=== PATIENT | female | born 1990 | race African-American/Black ===

== ENCOUNTER → 2018-05-27 | Outpatient (CLI) | payer OTHER ==
[2018-05-27 12:44] LABS: HCT 33.6 % (34.0-46.0); HGB 11.5 gm/dL (11.4-16.0); MCH 32.6 pg (25.0-35.0); MCHC 34.1 g/dL (31.0-37.0); MCV 95.7 fL (80.0-100.0); Mean Platelet Volume 6.9; Platelet Count 376 k/uL (150-450); RBC 3.51 m/uL (3.80-5.40); RDW 13.7 % (11.5-15.5); WBC 6.6 k/uL (3.8-10.6)
== END | disposition home or self-care (01) ==
LOC: LABWHC1 11:53
PROVIDERS: ATTEND Obstetrics & Gynecology
DX: F50.89 Other specified eating disorder (principal)
CPT/HCPCS: 36415; 85027

== ENCOUNTER 2018-05-31 14:03 | Emergency (ER) | payer OTHER ==
[2018-05-31 14:26] VITALS: TEMP 99
[2018-05-31] MEDS ORDERED: SODIUM CHLORIDE 0.9% 500 ML IV STA (15:04)
--- NOTE | 2018-05-31 15:23 | ED ---
General Adult HPI - General Chief complaint: Dizziness Stated complaint: SOB, Lightheaded Time Seen by Provider: 05/31/18 14:54 Source: patient Mode of arrival: ambulatory Limitations: no limitations - History of Present Illness Initial comments: Ramone is a female currently approximately 6 months who presents the ED today for evaluation of chest pain, palpitations, shortness of breath and lightheadedness. Patient has a complicated medical history significant for DVTs and PEs in the past, she has been prescribed anticoagulation and during this was advised that she needs to be on Lovenox injections. Patient reports that she missed about 2 weeks of her injections but because she started feeling short of breath yesterday did take an injection. Patient reports that she has been feeling mildly short of breath, she attributed this to having asthma and the high humidity. However earlier today she was at home and she began to feel that her heart was pounding very hard, she could not catch her breath at this time and began to feel like she was going to pass out. She states that she sat and rested and the symptoms went away. She then had to attend a court hearing regarding her current custody situation. She reports that while at the courthouse she again began to feel that her heart was racing, she describes this feeling that her heart was pounding in her chest and she could not catch her breath. She reports that her vision darkened and she thought she would faint. Patient does have a history of fainting in the past. When she felt the sensation she states that she moved to a chair and sat down. She did not faint. Patient then became concerned due to her symptoms and her noncompliance with her medications that she needed to come to the hospital for evaluation. - Related Data Home Medications Medication Instructions Recorded Confirmed Albuterol Nebulized [Ventolin 2.5 mg INHALATION RT-BID PRN 08/31/16 05/31/18 Nebulized] Enoxaparin [Lovenox] 40 mg SQ HS 05/31/18 05/31/18 Pnv No.95/Ferrous Fum/Folic AC 1 tab PO DAILY 05/31/18 05/31/18 [ Multivitamin Tablet] Allergies Allergy/AdvReac Type Severity Reaction Status Date / Time Penicillins Allergy Unknown Verified 05/31/18 14:48 Childhood Review of Systems ROS Statement: Those systems with pertinent positive or pertinent negative responses have been documented in the HPI. ROS Other: All systems not noted in ROS Statement are negative. Constitutional: Denies: fever, chills Eyes: Reports: vision change (darkening of vision when she felt she would faint) ENT: Denies: throat pain, hearing loss Respiratory: Reports: dyspnea. Denies: cough Cardiovascular: Reports: chest pain, palpitations. Denies: dyspnea on exertion Endocrine: Reports: fatigue Gastrointestinal: Denies: abdominal pain, nausea, vomiting Genitourinary: Denies: urgency, dysuria Musculoskeletal: Denies: back pain Skin: Denies: rash, lesions Neurological: Denies: headache, weakness, numbness, paresthesias Psychiatric: Reports: anxiety Hematological/Lymphatic: Denies: easy bleeding, easy bruising Past Medical History Past Medical History: Asthma, GERD/Reflux, Mitral Valve Prolapse (MVP) Additional Past Medical History / Comment(s): BLADDER INFECTIONS, PANCREATITIS, lung nodules and blood clot in lungs History of Any Multi-Drug Resistant Organisms: None Reported Past Surgical History: Appendectomy, Cholecystectomy, Hernia Repair Additional Past Surgical History / Comment(s): RT CALF MUCSLE REPAIRED AFTER LACERATION INURY Past Anesthesia/Blood Transfusion Reactions: No Reported Reaction Past Psychological History: Anxiety Smoking Status: Former smoker Past Alcohol Use History: Occasional Past Drug Use History: None Reported - Past Family History Father Additional Family Medical History / Comment(s): UNK Mother Family Medical History: Thyroid Disorder Additional Family Medical History / Comment(s): MURMUR, sarcoidosis General Exam Limitations: no limitations General appearance: alert, in no apparent distress Head exam: Present: atraumatic, normocephalic Eye exam: Present: normal appearance, PERRL ENT exam: Present: normal exam, mucous membranes moist Neck exam: Present: full ROM Respiratory exam: Present: normal lung sounds bilaterally. Absent: respiratory distress, wheezes Cardiovascular Exam: Present: regular rate, normal rhythm GI/Abdominal exam: Present: other (Gravid uterus) Rectal exam: Present: deferred Extremities exam: Present: normal inspection, full ROM, normal capillary refill. Absent: pedal edema, calf tenderness Back exam: Present: normal inspection Neurological exam: Present: alert, oriented X3 Psychiatric exam: Present: normal affect, normal mood Skin exam: Present: warm, dry Course Vital Signs 05/31/18 05/31/18 05/31/18 14:22 16:49 18:03 Temperature 99.0 F Pulse Rate 87 60 70 Respiratory 16 18 16 Rate Blood Pressure 106/72 114/66 109/59 O2 Sat by Pulse 98 98 100 Oximetry - Reevaluation(s) Reevaluation #1: She was reevaluated, is resting comfortably. Patient has decided to have the CT for pulmonary embolism despite being . 05/31/18 15:53 Reevaluation #2: On CT findings, expresses relief that there is no evidence of central pulmonary embolism. Patient states that she will continue to use her Lovenox as prescribed. 05/31/18 17:45 EKG Findings - EKG Comments: EKG Findings:: EKG performed at 1550 - rate is 76, rhythm sinus, normal axis, there are normal intervals, [place] is 166, QRS is 82 QTc is 525, there is no acute ST elevations or depressions. There is no evidence of acute right heart strain. There is no evidence of sinus tachycardia, or [id number] indicitave of right heart strain. Medical Decision Making - Medical Decision Making The patient was seen and evaluated, history was obtained from the patient and her mother bedside Patient with a very complicated medical history including pulmonary embolism in the past, patient has been noncompliant with her Lovenox, she's had chest pain, palpitations, shortness of breath and near-syncope. Patient with concern that this may be anxiety related to her current social situation versus recurrent pulmonary embolism. An extensive conversation with the patient guarding the risks and benefits of CT scanning during , I advised her that a computed tomography scan will valuate for pulmonary embolism and identify the size and location. Advised that exposure to radiation in utero may increase risk of defects or development of certain cancers. Patient would like time to discuss options with her mother Labs & EKG ordered Patient consented to computed tomography scan Computed tomography scan reveals no evidence of acute pulmonary embolism. These results were discussed with the patient who expresses relief. I stressed to the patient the importance of her compliance with Lovenox and follow-up with high risk enough them. Patient expressed understanding. I advised patient I think her symptoms are likely multifactorial relating to anemia of , increase cardiac output, decreased pulmonary reserve, history of asthma, current weather conditions as well as her emotional state being very heightened due to social stressors. Patient agreed that this likely contributes and she expresses again relief that there is no PE and remorse for not being compliant with her medications. Patient ensures me that she will be compliant with her Lovenox for the remainder of her . Patient was advised to call 911 or return to the emergency department if she has any acute worsening of her symptoms. All questions pertaining to care were answered best my ability patient was discharged home - Lab Data Result diagrams: 05/31/18 15:54 05/31/18 15:54 Lab Results 05/31/18 05/31/18 05/31/18 Range/Units 15:54 15:54 15:54 WBC 6.2 (3.8-10.6) k/uL RBC 3.41 L (3.80-5.40) m/uL Hgb 10.7 L (11.4-16.0) gm/dL Hct 32.0 L (34.0-46.0) % MCV 93.7 (80.0-100.0) fL MCH 31.3 (25.0-35.0) pg MCHC 33.4 (31.0-37.0) g/dL RDW 13.7 (11.5-15.5) % Plt Count 337 (150-450) k/uL Neutrophils % 67 % Lymphocytes % 23 % Monocytes % 7 % Eosinophils % 1 % Basophils % 0 % Neutrophils # 4.1 (1.3-7.7) k/uL Lymphocytes # 1.5 (1.0-4.8) k/uL Monocytes # 0.4 (0-1.0) k/uL Eosinophils # 0.1 (0-0.7) k/uL Basophils # 0.0 (0-0.2) k/uL PT (9.0-12.0) sec INR (<1.2) APTT (22.0-30.0) sec Sodium 135 L (137-145) mmol/L Potassium 4.2 (3.5-5.1) mmol/L Chloride 112 H (98-107) mmol/L Carbon Dioxide 19 L (22-30) mmol/L Anion Gap 4 mmol/L BUN 4 L (7-17) mg/dL Creatinine 0.40 L (0.52-1.04) mg/dL Est GFR (CKD-EPI)AfAm >90 (>60 ml/min/1.73 sqM) Est GFR (CKD-EPI)NonAf >90 (>60 ml/min/1.73 sqM) Glucose 85 (74-99) mg/dL Calcium 8.6 (8.4-10.2) mg/dL Magnesium 2.0 (1.6-2.3) mg/dL Total Bilirubin 0.3 (0.2-1.3) mg/dL AST 25 (14-36) U/L ALT 27 (9-52) U/L Alkaline Phosphatase 77 (38-126) U/L Total Creatine Kinase 35 (30-135) U/L CK-MB (CK-2) <0.2 (0.0-2.4) ng/mL CK-MB (CK-2) Rel Index Troponin I <0.012 (0.000-0.034) ng/mL NT-Pro-B Natriuret Pep pg/mL Total Protein 6.3 (6.3-8.2) g/dL Albumin 3.3 L (3.5-5.0) g/dL 05/31/18 05/31/18 Range/Units 15:54 15:54 WBC (3.8-10.6) k/uL RBC (3.80-5.40) m/uL Hgb (11.4-16.0) gm/dL Hct (34.0-46.0) % MCV (80.0-100.0) fL MCH (25.0-35.0) pg MCHC (31.0-37.0) g/dL RDW (11.5-15.5) % Plt Count (150-450) k/uL Neutrophils % % Lymphocytes % % Monocytes % % Eosinophils % % Basophils % % Neutrophils # (1.3-7.7) k/uL Lymphocytes # (1.0-4.8) k/uL Monocytes # (0-1.0) k/uL Eosinophils # (0-0.7) k/uL Basophils # (0-0.2) k/uL PT 9.6 (9.0-12.0) sec INR 1.0 (<1.2) APTT 23.0 (22.0-30.0) sec Sodium (137-145) mmol/L Potassium (3.5-5.1) mmol/L Chloride (98-107) mmol/L Carbon Dioxide (22-30) mmol/L Anion Gap mmol/L BUN (7-17) mg/dL Creatinine (0.52-1.04) mg/dL Est GFR (CKD-EPI)AfAm (>60 ml/min/1.73 sqM) Est GFR (CKD-EPI)NonAf (>60 ml/min/1.73 sqM) Glucose (74-99) mg/dL Calcium (8.4-10.2) mg/dL Magnesium (1.6-2.3) mg/dL Total Bilirubin (0.2-1.3) mg/dL AST (14-36) U/L ALT (9-52) U/L Alkaline Phosphatase (38-126) U/L Total Creatine Kinase (30-135) U/L CK-MB (CK-2) (0.0-2.4) ng/mL CK-MB (CK-2) Rel Index Troponin I (0.000-0.034) ng/mL NT-Pro-B Natriuret Pep 128 pg/mL Total Protein (6.3-8.2) g/dL Albumin (3.5-5.0) g/dL Disposition Clinical Impression: Heart palpitations, Anemia affecting Disposition: HOME SELF-CARE Condition: Good Instructions: Palpitations (ED), Near Syncope (ED) Is patient prescribed a controlled substance at d/c from ED?: No Referrals: None,Stated [Primary Care Provider] - 1-2 days Time of Disposition: 17:45
[2018-05-31 16:02] LABS: Basophils % (A) 0 %; Eosinophils # (A) 0.1 k/uL (0-0.7); Eosinophils % (A) 1 %; HGB 10.7 gm/dL (11.4-16.0); Lymphocytes # (A) 1.5 k/uL (1.0-4.8); Lymphocytes % (A) 23 %; MCH 31.3 pg (25.0-35.0); MCHC 33.4 g/dL (31.0-37.0); MCV 93.7 fL (80.0-100.0); Mean Platelet Volume 6.8; Monocytes # (A) 0.4 k/uL (0-1.0); Monocytes % (A) 7 %; Neutrophils # (A) 4.1 k/uL (1.3-7.7); Neutrophils % (A) 67 %; Platelet Count 337 k/uL (150-450); RBC 3.41 m/uL (3.80-5.40); RDW 13.7 % (11.5-15.5); WBC 6.2 k/uL (3.8-10.6)
[2018-05-31 16:10] LABS: Prothrombin Time 9.6 sec (9.0-12.0)
[2018-05-31 16:15] LABS: ALT 27 U/L (9-52); AST 25 U/L (14-36); Albumin 3.3 g/dL (3.5-5.0); Alkaline Phosphatase 77 U/L (38-126); Anion Gap 4 mmol/L; Blood Urea Nitrogen 4 mg/dL (7-17); Calcium 8.6 mg/dL (8.4-10.2); Carbon Dioxide 19 mmol/L (22-30); Chloride 112 mmol/L (98-107); Glucose 85 mg/dL (74-99); Sodium 135 mmol/L (137-145); Total Bilirubin 0.3 mg/dL (0.2-1.3); Total Protein 6.3 g/dL (6.3-8.2)
--- NOTE | 2018-05-31 16:37 | CT ---
EXAMINATION TYPE: CT chest angio for PE DATE OF EXAM: 05/31/2018 COMPARISON: 12/20/2015 HISTORY: Chest pain, shortness of breath and dizziness today. CT DLP: 238.5 mGycm. Automated Exposure Control for Dose Reduction was Utilized. CONTRAST: CTA scan of the thorax is performed with IV Contrast, patient injected with 70ml mL of Isovue 370, pu lmonary embolism protocol. MIP Images are created on CT scanner and reviewed. FINDINGS: LUNGS: The lungs are grossly clear, there is no concerning parenchymal mass or nodule identified. T here is no pleural effusion or pneumothorax seen. The tracheobronchial tree is patent. MEDIASTINUM: Increased density within the anterior superior mediastinum does not have a masslike conf iguration and typically relates to residual thymic tissue. Although there are numerous filling defects when correlated with the coronal images these correspond to horizontally oriented linear areas of decreased attenuation representing artifact. This may be fro m patient motion artifact or extensive respiratory artifact. No central pulmonary embolus is seen. Ch oscar in caliber of the main pulmonary artery from series 4 image 44 to image 47 is likely on the basi s of tachycardia. There are no greater than 1 cm hilar or mediastinal lymph nodes. No cardiomegaly or pericardial effusion is seen. OTHER: Surgical clips are seen at the gastroesophageal junction. IMPRESSION: 1. The exam is limited given extensive patient respiratory artifact, likely tachycardia, and possible patient motion artifact. No central pulmonary embolus is seen, however multiple filling defects with in the pulmonary artery correlate to artifact and coronal images in the subsegmental and segmental pu lmonary arteries. Repeat imaging would be advised prior to treatment if there is persistent high susp icion for pulmonary embolus. 2. Minimal bibasilar subsegmental dependent atelectasis.
[2018-05-31 16:41] LABS: Potassium 4.2 mmol/L (3.5-5.1)
[2018-05-31 16:53] LABS: Creatine Kinase 35 U/L (30-135)
[2018-05-31 17:04] LABS: Creatine Kinase MB <0.2 ng/mL (0.0-2.4); Troponin I <0.012 ng/mL (0.000-0.034)
[2018-05-31 18:04] VITALS: BP 109/59; PULSE 70; RESP 16
== END 2018-05-31 18:03 | disposition home or self-care (01) ==
LOC: EC 14:03
DX: O99.112 Other diseases of the blood and blood-forming organs and certain disorders involving the immune mechanism complicating pregnancy, second trimester (principal); D64.9 Anemia, unspecified; O99.89 Other specified diseases and conditions complicating pregnancy, childbirth and the puerperium; R00.2 Palpitations; Z91.14 Patient's other noncompliance with medication regimen; R07.9 Chest pain, unspecified; R06.02 Shortness of breath; O99.512 Diseases of the respiratory system complicating pregnancy, second trimester; J45.909 Unspecified asthma, uncomplicated; Z87.891 Personal history of nicotine dependence; Z79.01 Long term (current) use of anticoagulants; Z79.899 Other long term (current) drug therapy; Z88.0 Allergy status to penicillin; Z86.711 Personal history of pulmonary embolism; Z86.718 Personal history of other venous thrombosis and embolism; Z3A.26 26 weeks gestation of pregnancy
CPT/HCPCS: 99284; 96360; 36415; 93005; 83880; 80053; 82550; 82553; 83735; 84484; 85025; 85610; 85730; 71275; Q9967

== ENCOUNTER 2018-06-03 10:26 | Observation (INO) | payer OTHER ==
[2018-06-03 13:01] LABS: Basophils % (A) 0 %; Eosinophils % (A) 1 %; HCT 30.5 % (34.0-46.0); HGB 9.9 gm/dL (11.4-16.0); Lymphocytes # (A) 1.4 k/uL (1.0-4.8); Lymphocytes % (A) 26 %; MCH 30.7 pg (25.0-35.0); MCHC 32.4 g/dL (31.0-37.0); MCV 94.8 fL (80.0-100.0); Mean Platelet Volume 7.3; Monocytes # (A) 0.2 k/uL (0-1.0); Monocytes % (A) 4 %; Neutrophils # (A) 3.8 k/uL (1.3-7.7); Neutrophils % (A) 68 %; Platelet Count 345 k/uL (150-450); RBC 3.22 m/uL (3.80-5.40); RDW 13.7 % (11.5-15.5); WBC 5.6 k/uL (3.8-10.6)
[2018-06-03 13:05] LABS: Partial Thromboplastin Time 23.6 sec (22.0-30.0); Prothrombin Time 9.9 sec (9.0-12.0)
[2018-06-03 13:06] LABS: Amphetamine Screen,Urine Not Detected (NotDetected); Barbiturate Screen,Urine Not Detected (NotDetected); Benzodiazepines Screen,Urine Not Detected (NotDetected); Cocaine Screen,Urine Not Detected (NotDetected); Methadone Screen, Urine Not Detected (NotDetected); Opiate Screen,Urine Not Detected (NotDetected); Oxycodone Screen, Urine Not Detected (NotDetected); Phencyclidine Screen,Urine Not Detected (NotDetected); Tricyclic Antidepressant,Urine Not Detected (NotDetected); Urn Cannabinoid Scrn Not Detected (NotDetected)
[2018-06-03 13:29] LABS: ALT 21 U/L (9-52); AST 26 U/L (14-36); Albumin 3.1 g/dL (3.5-5.0); Alkaline Phosphatase 73 U/L (38-126); Anion Gap 8 mmol/L; Blood Urea Nitrogen 3 mg/dL (7-17); Calcium 8.7 mg/dL (8.4-10.2); Carbon Dioxide 20 mmol/L (22-30); Chloride 108 mmol/L (98-107); Glucose 128 mg/dL (74-99); Potassium 4.1 mmol/L (3.5-5.1); Sodium 136 mmol/L (137-145); Total Bilirubin 0.3 mg/dL (0.2-1.3)
[2018-06-03 13:38] LABS: Creatine Kinase MB <0.2 ng/mL (0.0-2.4); Troponin I <0.012 ng/mL (0.000-0.034)
[2018-06-03 13:41] VITALS: BP 121/60; PULSE 82; RESP 18; TEMP 98; BMI 26.9
--- NOTE | 2018-06-03 14:37 | P.CNPUL ---
History of Present Illness Consult date: 06/03/18 Reason for consult: dyspnea, chest pain, pulmonary embolism Chief complaint: Shortness of breath History of present illness: This is a 28 year old female who presented to the hospital with shortness of breath, chest tightness, dizziness, and near syncope. The patient states this began about 3 days ago when she was grocery shopping. She suddenly became short of breath, had chest discomfort, and almost passed out. She noted that her heart was racing and her vision went blurry. She states this has happened to her in the past, a few years ago, and she was diagnosed with a pulmonary embolism. She states she underwent extensive testing for clotting disorders and was placed on Coumadin. She moved to [place] at some point and moved back to [place] about 3 months ago. She states she was told by a physician to stop taking her Coumadin and about 6 months later what started on Lovenox when she found out she was . She states she did miss about 2 weeks of Lovenox. She had a CTA of the chest done on 05/31/2018. No central pulmonary embolism was seen however the patient did have multiple filling defects in the subsegmental levels. This is discussed with the radiologist extensively. He does note filling beyond the suspected defects. This is more consistent with a subacute chronic pulmonary embolism. She is currently 27 weeks . The patient also has a known history of asthma. She states she stopped using her breathing treatments at home. She recently started taking them again. The patient states she is undergoing evaluation for autoimmune diseases as well. The patient states she does not smoke, she quit about 9 years ago. Review of Systems All systems: negative Past Medical History Past Medical History: Asthma, GERD/Reflux, Mitral Valve Prolapse (MVP) Additional Past Medical History / Comment(s): BLADDER INFECTIONS, PANCREATITIS, lung nodules and blood clot in lungs, liver mass, heart murmur, bronchitis history, DVT, SOB 06/03/2018, IBS, CELIAC DISEASE History of Any Multi-Drug Resistant Organisms: None Reported Past Surgical History: Appendectomy, Cholecystectomy, Hernia Repair Additional Past Surgical History / Comment(s): RT CALF MUCSLE REPAIRED AFTER LACERATION INURY Past Anesthesia/Blood Transfusion Reactions: No Reported Reaction Past Psychological History: Anxiety Additional Psychological History / Comment(s): PT STATED HAS HAD ABD PAIN OFF AND ON X 4 WEEKS AND N/V INTERMITTENTLY X2 WEEKS. PT WAS RECENTLY TX FOR RESP INFECTION(STARTED MEDROL DOSEPAK 10-7-14 TOOK LAST DOES TODAY). Smoking Status: Former smoker Past Alcohol Use History: Occasional Additional Past Alcohol Use History / Comment(s): STARTED SMOKING AT AGE 20 SMOKED 2-3 HELIO PER DAY QUIT 2010 Past Drug Use History: None Reported - Past Family History Father Family Medical History: COPD Additional Family Medical History / Comment(s): UNK, GASTROINTESTINAL PROBLEMS Mother Family Medical History: Thyroid Disorder Additional Family Medical History / Comment(s): MURMUR, sarcoidosis, Medications and Allergies Home Medications Medication Instructions Recorded Confirmed Type Albuterol Nebulized [Ventolin 2.5 mg INHALATION RT-BID PRN 08/31/16 06/03/18 History Nebulized] Enoxaparin [Lovenox] 40 mg SQ HS 05/31/18 06/03/18 History Pnv No.95/Ferrous Fum/Folic AC 1 tab PO DAILY 05/31/18 06/03/18 History [ Multivitamin Tablet] Fluticasone/Salmeterol [Advair Hfa 2 puff INHALATION BID PRN 06/03/18 06/03/18 History 115-21 Mcg Inhaler] Allergies Allergy/AdvReac Type Severity Reaction Status Date / Time Penicillins Allergy Unknown Verified 05/31/18 14:48 Childhood Physical Exam Osteopathic Statement: *. No significant issues noted on an osteopathic structural exam other than those noted in the History and Physical/Consult. Vitals: Vital Signs Temp Pulse Resp BP Pulse Ox 06/03/18 10:30 98.0 F 82 18 121/60 100 Intake and Output 06/02/18 06/03/18 06/03/18 22:59 06:59 14:59 Other: Weight 75.75 kg Gen.: Patient is alert and oriented 3, no acute distress Cardiovascular: Regular rate and rhythm, S1/S2 Lungs: Clear to auscultation bilaterally no wheezes rales or rhonchi Abdomen: Gravid uterus, soft nontender Extremities: No edema Results - Laboratory Findings CBC and BMP: 06/03/18 12:37 06/03/18 12:37 PT/INR, D-dimer PT 9.9 sec (9.0-12.0) 06/03/18 12:37 INR 1.0 (<1.2) 06/03/18 12:37 Abnormal lab findings: Abnormal Labs 06/03/18 06/03/18 12:37 12:37 RBC 3.22 L Hgb 9.9 L Hct 30.5 L Sodium 136 L Chloride 108 H Carbon Dioxide 20 L BUN 3 L Creatinine 0.44 L Glucose 128 H Total Protein 6.0 L Albumin 3.1 L - Diagnostic Findings CT scan - chest: report reviewed, image reviewed Assessment and Plan Assessment: Acute dyspnea Subacute to chronic pulmonary embolisms History of DVT and PE Medical noncompliance 27 week intrauterine Asthma, unknown type Remote history of tobacco abuse Near-syncope History of mitral valve prolapse GERD O2 to maintain saturation > or = 90%, currently on RA Patient encouraged to continue Lovenox given history of PE/DVT and possible subacute PE on most recent CTA Patient may benefit from work up for possible chronic thromboembolic disease as outpatient Patient encouraged to be compliant with Lovenox as prescribed, she is aware that missing doses could be life-threatening for her and her baby Continued smoking cessation Advair and Albuterol for asthma Check lower extremity doppler ultrasound and echocardiogram for PH Follow up closely with OB, patient encouraged to establish with a PCP She will also need outpatient pulmonary follow up Would recommend long-term anticoagulation with NOAC post- Thank you for this consultation. We will continue to follow along.
--- NOTE | 2018-06-03 16:26 | P.HPOB ---
History of Present Illness H&P Date: 06/03/18 Chief Complaint: Acute shortness of breath at 27 weeks gestation Patient is a 28-year-old female at 27 weeks gestation who arrives to my office complaining of acute shortness of breath. Symptoms have been going on now for the last few days. She has a history of DVT and prior pulmonary embolism in the past and is seen maternal medicine. She is supposed to be taking Lovenox but has not taken in several days prior to her being seen in the emergency room this weekend. The resume to clear her by and large but she says symptomatically she is not feeling better. She'll be admitted for observation and pulmonary consultation and make sure that she is aware to continue to take her Lovenox as it was prescribed with her increased risk of DVT and PE. At this time her vital signs are stable and she is afebrile. All the questions are answered for her at this time and cardiac activity is noted. Past Medical History Past Medical History: Asthma, GERD/Reflux, Mitral Valve Prolapse (MVP) Additional Past Medical History / Comment(s): BLADDER INFECTIONS, PANCREATITIS, lung nodules and blood clot in lungs, liver mass, heart murmur, bronchitis history, DVT, SOB 06/03/2018, IBS, CELIAC DISEASE History of Any Multi-Drug Resistant Organisms: None Reported Past Surgical History: Appendectomy, Cholecystectomy, Hernia Repair Additional Past Surgical History / Comment(s): RT CALF MUCSLE REPAIRED AFTER LACERATION INURY Past Anesthesia/Blood Transfusion Reactions: No Reported Reaction Past Psychological History: Anxiety Additional Psychological History / Comment(s): PT STATED HAS HAD ABD PAIN OFF AND ON X 4 WEEKS AND N/V INTERMITTENTLY X2 WEEKS. PT WAS RECENTLY TX FOR RESP INFECTION(STARTED MEDROL DOSEPAK -7-14 TOOK LAST DOES TODAY). Smoking Status: Former smoker Past Alcohol Use History: Occasional Additional Past Alcohol Use History / Comment(s): STARTED SMOKING AT AGE 20 SMOKED 2-3 HELIO PER DAY QUIT 2010 Past Drug Use History: None Reported - Past Family History Father Family Medical History: COPD Additional Family Medical History / Comment(s): UNK, GASTROINTESTINAL PROBLEMS Mother Family Medical History: Thyroid Disorder Additional Family Medical History / Comment(s): MURMUR, sarcoidosis, Medications and Allergies Home Medications Medication Instructions Recorded Confirmed Type Albuterol Nebulized [Ventolin 2.5 mg INHALATION RT-BID PRN 10/20/16 07/23/18 History Nebulized] Enoxaparin [Lovenox] 40 mg SQ HS 05/31/18 06/03/18 History Pnv No.95/Ferrous Fum/Folic AC 1 tab PO DAILY 05/31/18 06/03/18 History [ Multivitamin Tablet] Fluticasone/Salmeterol [Advair Hfa 2 puff INHALATION BID PRN 06/03/18 06/03/18 History 115-21 Mcg Inhaler] Allergies Allergy/AdvReac Type Severity Reaction Status Date / Time Penicillins Allergy Unknown Verified 05/31/18 14:48 Childhood Exam Osteopathic Statement: *. No significant issues noted on an osteopathic structural exam other than those noted in the History and Physical/Consult. Vital Signs Temp Pulse Resp BP Pulse Ox 06/03/18 10:30 98.0 F 82 18 121/60 100 Intake and Output 06/03/18 06/03/18 06/03/18 06:59 14:59 22:59 Other: Weight 75.75 kg - OBG Physical Exam Breast: both: normal (no masses) Abdomen: bowel sounds normal, no diffuse tenderness, no bruit present, no guarding noted, no hepatomegaly, no splenomegaly, no mass Vulva: both: normal Vagina: normal moisture, no discharge Cervix: no lesion, no discharge Uterus: normal size, normal contour Adnexa: both: normal Anus/Rectum: normal perianal skin, no rectal mass, no hemorrhoids, heme negative Results Result Diagrams: 06/03/18 12:37 06/03/18 12:37 Abnormal Lab Results - Last 24 Hours (Table) 06/03/18 06/03/18 Range/Units 12:37 12:37 RBC 3.22 L (3.80-5.40) m/uL Hgb 9.9 L (11.4-16.0) gm/dL Hct 30.5 L (34.0-46.0) % Sodium 136 L (137-145) mmol/L Chloride 108 H (98-107) mmol/L Carbon Dioxide 20 L (22-30) mmol/L BUN 3 L (7-17) mg/dL Creatinine 0.44 L (0.52-1.04) mg/dL Glucose 128 H (74-99) mg/dL Total Protein 6.0 L (6.3-8.2) g/dL Albumin 3.1 L (3.5-5.0) g/dL
--- NOTE | 2018-06-03 16:28 | P.DS ---
Providers Date of admission: 06/03/18 10:26 Expected date of discharge: 06/03/18 Attending physician: Connor De La Garza Consults: 06/03/18 11:01 Consult Physician Routine Consulting Provider: Iam Greenwood Consult Reason/Comments: ACUTE SOB Do you want consulting provider notified?: Yes Placement Type Exists?: Yes Primary care physician: Physician Nonstaff Hospital Course: Patient seen and evaluated again this afternoon. She was seen by pulmonary who essentially cleared her and recommended she maintain her therapies better area they've also schedule an outpatient appointment to have her follow up with them. She reports that she is feeling better with limited to no shortness of breath this time and would like to go home. As I at this second have no reason to keep her with no change in therapy and no new findings, plan discharged home and follow-up with me in 1 week. She is acutely aware to return to the emergency room should shortness of breath worsening or change and that she must comply with her Lovenox treatments. There is no other treatment recommendations at this time and we'll therefore plan discharged home follow up with me in 1 week and follow-up with pulmonary 1 week. Patient Condition at Discharge: Good Plan - Discharge Summary New Discharge Prescriptions: No Action Albuterol Nebulized [Ventolin Nebulized] 2.5 mg INHALATION RT-BID PRN PRN Reason: Shortness Of Breath Enoxaparin [Lovenox] 40 mg SQ HS Pnv No.95/Ferrous Fum/Folic AC [ Multivitamin Tablet] 1 tab PO DAILY Fluticasone/Salmeterol [Advair Hfa 115-21 Mcg Inhaler] 2 puff INHALATION BID PRN PRN Reason: asthma Discharge Medication List Albuterol Nebulized [Ventolin Nebulized] 2.5 mg INHALATION RT-BID PRN 08/31/16 [ History] Enoxaparin [Lovenox] 40 mg SQ HS 05/31/18 [History] Pnv No.95/Ferrous Fum/Folic AC [ Multivitamin Tablet] 1 tab PO DAILY [History] Fluticasone/Salmeterol [Advair Hfa 115-21 Mcg Inhaler] 2 puff INHALATION BID PRN 06/03/18 [History] Follow up Appointment(s)/Referral(s): Connor De La Garza DO [Doctor of Osteopathic Medicine] - 1 Week Uma Khanna DO [Doctor of Osteopathic Medicine] - 1 Week Care Plan Goals (MU): Call or return to the emergency room with worsening of symptoms
--- NOTE | 2018-06-03 16:47 | US ---
EXAMINATION TYPE: US venous doppler duplex LE BI DATE OF EXAM: 06/03/2018 3:41 PM COMPARISON: NONE CLINICAL HISTORY: 28-year-old female LE pain, PE, possible DVT. Chest pain, SOB, bilateral leg cramps , patient on blood thinners, patient is 27 weeks . SIDE PERFORMED: Bilateral TECHNIQUE: The lower extremity deep venous system is examined utilizing real time linear array sonog stew with graded compression, doppler sonography and color-flow sonography. VESSELS IMAGED: External Iliac Vein (EIV) Common Femoral Vein Deep Femoral Vein Greater Saphenous Vein * Femoral Vein Popliteal Vein Small Saphenous Vein * Proximal Calf Veins (* superficial vessels) Right Leg: Appears negative for DVT Left Leg: Appears negative for DVT IMPRESSION: No evidence for DVT within the bilateral lower extremities imaged from the groin to the upper calves.
--- NOTE | 2018-06-04 10:28 | ECHOF ---
Referral Reason:PE, rule out Pulm hypertension, CTEPH MEASUREMENTS -------- HEIGHT: 165.1 cm WEIGHT: 75.7 kg BP: RVIDd: 2.4 cm (< 3.3) IVSd: 1.0 cm (0.6 - 1.1) LVIDd: 4.2 cm (3.9 - 5.3) LVPWd: 1.2 cm (0.6 - 1.1) IVSs: 1.3 cm LVIDs: 3.4 cm LVPWs: 1.3 cm LA Diam: 3.0 cm (2.7 - 3.8) Ao Diam: 2.6 cm (2.0 - 3.7) AV Cusp: 1.4 cm (1.5 - 2.6) LA Diam: 3.5 cm (2.7 - 3.8) MV EXCURSION: 10.716 mm (> 18.000) MV EF SLOPE: 62 mm/s (70 - 150) EPSS: 0.5 cm MV E Aki: 1.13 m/s MV DecT: 203 ms MV A Aki: 0.94 m/s MV E/A Ratio: 1.20 RAP: 5.00 mmHg RVSP: 30.33 mmHg FINDINGS -------- Sinus rhythm. This was a technically good study. LV size, wall thickness and systolic function are normal, with an EF greater than 55%. The left valerie tricular size is normal. The right ventricle is normal in size. The left atrial size is normal. The right atrial size is normal. The aortic valve is trileaflet, and appears structurally normal. No aortic stenosis or regurgitation. Mild mitral regurgitation is present. Mild tricuspid regurgitation present. There is no evidence of pulmonary hypertension. The right v entricular systolic pressure, as measured by Doppler, is 30.33mmHg. There is no pulmonic regurgitation present. The aortic root size is normal. There is no pericardial effusion. CONCLUSIONS -------- 1. LV size, wall thickness and systolic function are normal, with an EF greater than 55%. 2. The left ventricular size is normal. 3. The right ventricle is normal in size. 4. The left atrial size is normal. 5. The right atrial size is normal. 6. The aortic valve is trileaflet, and appears structurally normal. No aortic stenosis or regurgitati on. 7. Mild mitral regurgitation is present. 8. Mild tricuspid regurgitation present. 9. There is no evidence of pulmonary hypertension. 10. The right ventricular systolic pressure, as measured by Doppler, is 30.33mmHg. 11. There is no pulmonic regurgitation present. 12. The aortic root size is normal. 13. There is no pericardial effusion. BUSHLER: Balbina Barnes RDCS
== END 2018-06-03 17:15 | disposition home or self-care (01) ==
LOC: 4FBP 10:26
PROVIDERS: ADMIT Obstetrics & Gynecology; ATTEND Obstetrics & Gynecology
DX: O99.512 Diseases of the respiratory system complicating pregnancy, second trimester (principal); Z3A.27 27 weeks gestation of pregnancy; J45.909 Unspecified asthma, uncomplicated; O88.812 Other embolism in pregnancy, second trimester; O99.412 Diseases of the circulatory system complicating pregnancy, second trimester; I34.1 Nonrheumatic mitral (valve) prolapse; I27.82 Chronic pulmonary embolism; K21.9 Gastro-esophageal reflux disease without esophagitis; O99.612 Diseases of the digestive system complicating pregnancy, second trimester; O99.342 Other mental disorders complicating pregnancy, second trimester; F41.9 Anxiety disorder, unspecified; Z90.49 Acquired absence of other specified parts of digestive tract; Z82.5 Family history of asthma and other chronic lower respiratory diseases; Z83.49 Family history of other endocrine, nutritional and metabolic diseases; Z79.02 Long term (current) use of antithrombotics/antiplatelets; Z88.0 Allergy status to penicillin; Z86.718 Personal history of other venous thrombosis and embolism; Z87.891 Personal history of nicotine dependence; T45.516A Underdosing of anticoagulants, initial encounter; T48.906A Underdosing of unspecified agents primarily acting on the respiratory system, initial encounter; R55 Syncope and collapse
CPT/HCPCS: 93306; 93005; 86900; 86901; 82950; 80053; 82553; 84484; 85025; 85610; 85730; 86850; 80306; 93970; G0378; G0379

== ENCOUNTER 2018-06-26 16:55 | Outpatient (CLI) | payer OTHER ==
[2018-06-26] MEDS ORDERED: ENOXAPARIN 40 MG/0.4 ML SYRINGE SQ STA (16:59)
[2018-06-26 17:21] VITALS: BP 126/65; PULSE 80; RESP 16; TEMP 97.7
--- NOTE | 2018-07-09 08:16 | P.MSEPDOC ---
Presenting Problems - Arrival Data Date of Arrival on Unit: 06/26/18 Time of Arrival on Unit: 16:55 Mode of Transport: Ambulatory - Complaint OB-Reason for Admission/Chief Complaint: Other Comment: lovenox injection Medical History - Information : 2 Para: 1 Term: 1 : 0 Abortions: Spontaneous or Elective: 0 Number of Living Children: 1 - Gestational Age Gestational Age by DELANEY (wks/days): 30 Weeks and 4 Days - History Comment: Hx PE Review of Systems - Review of Systems Constitutional: No problems Breast: No problems ENT: No problems Cardiovascular: No problems Respiratory: No problems Gastrointestinal: No problems Genitourinary: No problems Musculoskeletal: No problems Neurological: No problems Skin: No problems Vital Signs - Temperature Temperature: 97.7 F Temperature Source: Oral - Pulse Left Sitting Brachial Pulse Rate: 80 Pulse Assessment Method: Automatic Cuff - Respirations Respiratory Rate: 16 Oxygen Delivery Method: Room Air - Blood Pressure Right Arm Sitting Blood Pressure: 126/65 Blood Pressure Mean: 85 Medical Screen Scoring (Pre) - Cervical Exam Dilation: Exam Deferred Effacement: Exam Deferred Membranes: Intact - Uterine Contractions Frequency: N/A - Maternal Vital Signs Maternal Temperature: N/A Maternal Blood Pressure: N/A Signs of Preeclampsia: N/A Maternal Respirations: N/A - Maternal Trauma Maternal Trauma: N/A - Total Score Total Score (Pre): 0 - Level of Risk Level of Risk: Low (0-5) Physician Notification (Pre) - Physician Notified Physician Notified Date: 06/26/18 Physician Notified Time: 17:00 Physician/Practitioner Notifed:: Frederic Spoke With: Frederic New Order Received: Yes - Notification Comment Comment: D/C after admin of Lovenox, no monitoring required. Pt to [facility] script for heparin at [facility], appt with Dr. De La Garza 06/27 @1400 I agree with the RN Medical Screening Exam: Yes Risk & Benefit of care provided described in d/c instruction: Yes Diagnosis: RELATED CONDITIONS, UNSPECIFIED, THIRD TRIMESTER
== END 2018-06-26 17:20 | disposition home or self-care (01) ==
LOC: FBPOP 16:55
PROVIDERS: ATTEND Obstetrics & Gynecology
DX: O26.93 Pregnancy related conditions, unspecified, third trimester (principal); Z3A.30 30 weeks gestation of pregnancy
CPT/HCPCS: 96372; J1650

== ENCOUNTER 2018-08-27 06:00 | Inpatient (IN) | payer OTHER ==
[2018-08-27] MEDS ORDERED: METHYLERGONOVINE 0.2 MG/ML 1 ML AMP IM PRN (06:44)
[2018-08-27] MEDS ORDERED: OXYTOCIN 10 UNIT/ML 1 ML VIAL IM PRN (06:44)
[2018-08-27] MEDS ORDERED: TERBUTALINE 1 MG/ML VIAL SQ PRN (06:44)
[2018-08-27] MEDS ORDERED: LIDOCAINE 0.5% (PF) 5 MG/ML (50 ML SDV) SQ PRN (06:44)
[2018-08-27] MEDS ORDERED: CARBOPROST TROMETHAMINE 250 MCG/ML 1 ML AMP IM PRN (06:44)
[2018-08-27] MEDS ORDERED: OXYTOCIN 20 UNITS/1000 ML NS 1,000 ML IV SCH (06:45)
[2018-08-27] MEDS ORDERED: LACTATED RINGERS 1,000 ML IV SCH (06:45)
[2018-08-27 07:35] LABS: Basophils % (A) 1 %; Eosinophils % (A) 1 %; HCT 38.3 % (34.0-46.0); HGB 12.6 gm/dL (11.4-16.0); Lymphocytes # (A) 1.6 k/uL (1.0-4.8); Lymphocytes % (A) 32 %; MCH 30.8 pg (25.0-35.0); MCHC 32.8 g/dL (31.0-37.0); MCV 93.8 fL (80.0-100.0); Mean Platelet Volume 6.9; Monocytes # (A) 0.4 k/uL (0-1.0); Monocytes % (A) 7 %; Neutrophils # (A) 2.9 k/uL (1.3-7.7); Neutrophils % (A) 57 %; Platelet Count 319 k/uL (150-450); RBC 4.08 m/uL (3.80-5.40); RDW 13.9 % (11.5-15.5); WBC 5.1 k/uL (3.8-10.6)
[2018-08-27 07:36] VITALS: BMI 29.2
[2018-08-27 07:42] LABS: Partial Thromboplastin Time 24.3 sec (22.0-30.0); Prothrombin Time 9.6 sec (9.0-12.0)
[2018-08-27] MEDS ORDERED: ONDANSETRON 4 MG/2 ML VIAL IVP STA (11:49)
[2018-08-27] MEDS ORDERED: BUTORPHANOL 1 MG/ML 1 ML VIAL IV PRN (11:50)
[2018-08-27] MEDS ORDERED: diphenhydrAMINE 50 MG/ML 1 ML VIAL IVP PRN ×2 (12:45)
[2018-08-27] MEDS ORDERED: HYDROCORTISONE 2.5% RECTAL CREAM 30 GM TUBE RECTAL PRN (12:45)
[2018-08-27] MEDS ORDERED: BENZOCAINE/MENTHOL SPRAY 1 GM/SPRAY AEROSOL TOPICAL PRN (12:45)
[2018-08-27] MEDS ORDERED: SIMETHICONE 80 MG CHEWABLE PO PRN (12:45)
[2018-08-27] MEDS ORDERED: ZOLPIDEM 5 MG TAB PO PRN (12:45)
[2018-08-27] MEDS ORDERED: diphenhydrAMINE 25 MG CAP PO PRN (12:45)
[2018-08-27] MEDS ORDERED: WITCH HAZEL 1 EACH MED..PAD TOPICAL PRN (12:45)
[2018-08-27] MEDS ORDERED: IBUPROFEN 600 MG TAB PO PRN (12:45)
[2018-08-27] MEDS ORDERED: diphenhydrAMINE 50 MG CAP PO PRN (12:45)
[2018-08-27] MEDS ORDERED: LANOLIN CREAM 5 GM TUBE TOPICAL PRN (12:45)
--- NOTE | 2018-08-27 12:49 | P.HPOB ---
History of Present Illness H&P Date: 08/27/18 Chief Complaint: Intrauterine at term: History of pulmonary embolus Patient is a 28-year-old at 39 weeks gestation arise for induction of labor. Artificial rupture membranes was performed and clear fluid is noted with her dilated to 2-3 cm. heart tones are reactive and showed a category 1 tracing. Pertinent labs could be negative blood type Rh abdomen was negative, rubella immune, hepatitis B surface antigen and GBS and VDR L are nonreactive. Her course was, complicated by a pulmonary embolism that she had had in the past and there was some question as to whether not she had a persistent PE. She was initially on Lovenox and switched to heparin at about 30 weeks. She tolerated it well and had no other competitions. We did comanage this case with maternal medicine. She had some plica but in addition of iron did seem to help that somewhat. Also during the course of she ended up with bronchitis and she did see pulmonary for same. Today she is breathing well and has no other complaints. All questions were answered for her and plan is vaginal delivery with Pitocin augmentation. Past Medical History Past Medical History: Asthma, GERD/Reflux, Mitral Valve Prolapse (MVP) Additional Past Medical History / Comment(s): BLADDER INFECTIONS, PANCREATITIS, lung nodules and blood clot in lungs, liver mass, heart murmur, bronchitis history, DVT, SOB 06/03/2018, IBS, CELIAC DISEASE History of Any Multi-Drug Resistant Organisms: None Reported Past Surgical History: Appendectomy, Cholecystectomy, Hernia Repair Additional Past Surgical History / Comment(s): RT CALF MUCSLE REPAIRED AFTER LACERATION INURY Past Anesthesia/Blood Transfusion Reactions: No Reported Reaction Past Psychological History: Anxiety Additional Psychological History / Comment(s): PT STATED HAS HAD ABD PAIN OFF AND ON X 4 WEEKS AND N/V INTERMITTENTLY X2 WEEKS. PT WAS RECENTLY TX FOR RESP INFECTION(STARTED MEDROL DOSEPAK 08-18-14 TOOK LAST DOES TODAY). Smoking Status: Former smoker Past Alcohol Use History: Occasional Additional Past Alcohol Use History / Comment(s): STARTED SMOKING AT AGE 20 SMOKED 2-3 HELIO PER DAY QUIT 2010 Past Drug Use History: None Reported - Past Family History Father Family Medical History: COPD Additional Family Medical History / Comment(s): UNK, GASTROINTESTINAL PROBLEMS Mother Family Medical History: Thyroid Disorder Additional Family Medical History / Comment(s): MURMUR, sarcoidosis, Medications and Allergies Home Medications Medication Instructions Recorded Confirmed Type Albuterol Nebulized [Ventolin 2.5 mg INHALATION RT-BID PRN 08/31/16 08/27/18 History Nebulized] Pnv No.95/Ferrous Fum/Folic AC 1 tab PO DAILY 05/31/18 08/27/18 History [ Multivitamin Tablet] Fluticasone/Salmeterol [Advair Hfa 2 puff INHALATION BID PRN 06/03/18 08/27/18 History 115-21 Mcg Inhaler] Heparin Sodium,Porcine [Heparin 10,000 unit SQ BID 08/27/18 08/27/18 History Sodium] Allergies Allergy/AdvReac Type Severity Reaction Status Date / Time Penicillins Allergy Unknown Verified 08/27/18 06:43 Childhood gluten AdvReac Nausea & Verified 08/27/18 06:43 Vomiting lactose AdvReac Nausea & Verified 08/27/18 06:43 Vomiting Exam Osteopathic Statement: *. No significant issues noted on an osteopathic structural exam other than those noted in the History and Physical/Consult. Vital Signs Temp Pulse Resp BP Pulse Ox 08/27/18 07:26 97.2 F L 78 18 136/65 98 Intake and Output 08/26/18 08/27/18 08/27/18 22:59 06:59 14:59 Other: Weight 82.1 kg 82.1 kg - OBG Physical Exam Breast: both: normal (no masses) Abdomen: bowel sounds normal, no diffuse tenderness, no bruit present, no guarding noted, no hepatomegaly, no splenomegaly, no mass Vulva: both: normal Vagina: normal moisture, no discharge Cervix: no lesion, no discharge Uterus: normal size, normal contour Adnexa: both: normal Anus/Rectum: normal perianal skin, no rectal mass, no hemorrhoids, heme negative Results Result Diagrams: 08/27/18 07:00
--- NOTE | 2018-08-27 12:50 | P.PROBDLV ---
Vaginal Delivery Note - . Vaginal Delivery Note: Patient progressed complete and pushing with spontaneous vaginal delivery of a viable male over a first-degree perineal laceration. Following delivery of the head anterior posterior shoulders were easily delivered with gentle downward upper traction followed by the remainder the baby. Mouth nares were then bulb suctioned and baby was placed on mother's abdomen where the umbilical cord was allowed to pulsate for 40 seconds prior to clamping cutting. Once this was accomplished nursery personnel was present and assumed care. Placenta was then delivered intact and Pitocin was added to the IV. scores were 9 and 9 at one and 5 minutes respectively and the weight is pending but both mother and baby currently appear stable.
[2018-08-27] MEDS: HEPARIN SODIUM,PORCINE 5,000 UNIT/ML 1 ML VIAL SQ SCH (21:14)
[2018-08-27] MEDS: SENNOSIDES-DOCUSATE SODIUM 1 EACH TAB PO SCH (21:22)
[2018-08-28] MEDS: ACETAMINOPHEN TAB 325 MG TAB PO PRN ×2 (02:15→08:30)
--- NOTE | 2018-08-28 08:22 | P.DS ---
Providers Date of admission: 08/27/18 06:26 Expected date of discharge: 08/28/18 Attending physician: Connor De La Garza Primary care physician: Stated None Hospital Course: Patient is doing very well day 1. She is ambulating, voiding and she is tolerating her diet. She voices no complaints. Vital signs are stable and afebrile. Heart regular, lungs clear, extremities are without pain. Abdomen is soft uterus is firm and lochia is reported light. Assessment day 1. Plan discharged home follow up with me in 6 weeks. Discharge instructions were thoroughly reviewed and all questions are answered for her prior to her discharge. She is aware to continue her heparin for the next 6 weeks. She is also has an appointment with pulmonary sometime in early September at which time they can discuss long-term treatment and whether not she' ll need to maintain anticoagulation moving forward. All the questions were answered for her at this time and she is stable for discharge this time. A prescription for Motrin was folded to her pharmacy. Follow-up in 6 weeks Patient Condition at Discharge: Good Plan - Discharge Summary New Discharge Prescriptions: No Action Albuterol Nebulized [Ventolin Nebulized] 2.5 mg INHALATION RT-BID PRN PRN Reason: Shortness Of Breath Pnv No.95/Ferrous Fum/Folic AC [ Multivitamin Tablet] 1 tab PO DAILY Fluticasone/Salmeterol [Advair Hfa 115-21 Mcg Inhaler] 2 puff INHALATION BID PRN PRN Reason: asthma Heparin Sodium,Porcine [Heparin Sodium] 10,000 unit SQ BID Discharge Medication List Albuterol Nebulized [Ventolin Nebulized] 2.5 mg INHALATION RT-BID PRN 08/31/16 [ History] Pnv No.95/Ferrous Fum/Folic AC [ Multivitamin Tablet] 1 tab PO DAILY [History] Fluticasone/Salmeterol [Advair Hfa 115-21 Mcg Inhaler] 2 puff INHALATION BID PRN 06/03/18 [History] Heparin Sodium,Porcine [Heparin Sodium] 10,000 unit SQ BID 08/27/18 [History]
[2018-08-28 08:25] VITALS: RESP 16
[2018-08-28] MEDS: SENNOSIDES-DOCUSATE SODIUM 1 EACH TAB PO SCH (08:30)
[2018-08-28] MEDS: HEPARIN SODIUM,PORCINE 5,000 UNIT/ML 1 ML VIAL SQ SCH (09:14)
[2018-08-28 12:45] VITALS: BP 125/77; PULSE 64; TEMP 98
== END 2018-08-28 15:00 | disposition home or self-care (01) | DRG 807 ==
LOC: 4FBP 06:26
PROVIDERS: ADMIT Obstetrics & Gynecology; ATTEND Obstetrics & Gynecology
PROC: 10E0XZZ Delivery of Products of Conception, External Approach (ICD-10-PCS; principal; 2018-08-27)
PROC: 3E033VJ Introduction of Other Hormone into Peripheral Vein, Percutaneous Approach (ICD-10-PCS; principal; 2018-08-27)
PROC: 10907ZC Drainage of Amniotic Fluid, Therapeutic from Products of Conception, Via Natural or Artificial Opening (ICD-10-PCS; principal; 2018-08-27)
PROC: 0HQ9XZZ Repair Perineum Skin, External Approach (ICD-10-PCS; principal; 2018-08-27)
DX: O70.0 First degree perineal laceration during delivery (principal); Z37.0 Single live birth; Z3A.39 39 weeks gestation of pregnancy; Z79.51 Long term (current) use of inhaled steroids; Z82.5 Family history of asthma and other chronic lower respiratory diseases; Z86.711 Personal history of pulmonary embolism; Z87.09 Personal history of other diseases of the respiratory system; Z87.891 Personal history of nicotine dependence; Z88.0 Allergy status to penicillin; Z88.8 Allergy status to other drugs, medicaments and biological substances; J40 Bronchitis, not specified as acute or chronic; O99.52 Diseases of the respiratory system complicating childbirth; I34.1 Nonrheumatic mitral (valve) prolapse
CPT/HCPCS: 85025; 85610; 85730; 86850; 86870; 86880; 86900; 86901; 88307

== ENCOUNTER 2018-09-05 20:39 | Emergency (ER) | payer OTHER ==
[2018-09-05] MEDS ORDERED: ACETAMINOPHEN TAB 500 MG TAB PO STA (21:31)
[2018-09-05] MEDS ORDERED: SODIUM CHLORIDE 0.9% 1,000 ML IV ONE (21:31)
--- NOTE | 2018-09-05 21:41 | ED ---
Fever HPI - General Chief Complaint: Fever Stated Complaint: FEVER Time Seen by Provider: 09/05/18 20:43 Source: patient, family Mode of arrival: ambulatory Limitations: no limitations - History of Present Illness Initial Comments: 28-year-old female patient presents to the emergency department today with complaints of fever and feeling generally unwell. Patient is 9 days after a vaginal delivery of a healthy baby boy at 39 weeks. Patient states that over the last couple days she has been feeling short of breath and some pain in her mid back. Patient states that she has been having heavy vaginal bleeding with passage of large clots. She denies any odorous discharge. She did states that she is having some dysuria but she did have a laceration during the delivery which did have to be sutured. Patient denies any drainage from the wound. Patient states that she has had an occasional cough and mild sore throat and the mornings but her symptoms resolve as the day goes on. Denies any nasal congestion or drainage. Patient does have a history of pulmonary embolism with last diagnosis about 6 months ago. Patient is currently taking subcutaneous heparin. Patient denies any recent rash, abdominal pain, nausea, vomiting, diarrhea, constipation, back pain, numbness, tingling, dizziness, weakness, headache, visual changes, or any other complaints. - Related Data Home Medications Medication Instructions Recorded Confirmed Albuterol Nebulized [Ventolin 2.5 mg INHALATION RT-BID PRN 08/31/16 09/05/18 Nebulized] Pnv No.95/Ferrous Fum/Folic AC 1 tab PO DAILY 05/31/18 09/05/18 [ Multivitamin Tablet] Fluticasone/Salmeterol [Advair Hfa 2 puff INHALATION BID PRN 06/03/18 09/05/18 115-21 Mcg Inhaler] Heparin Sodium,Porcine [Heparin 10,000 unit SQ BID 08/27/18 09/05/18 Sodium] Previous Rx's Medication Instructions Recorded Ibuprofen [Motrin] 600 mg PO Q6HR PRN #30 tab 08/28/18 Allergies Allergy/AdvReac Type Severity Reaction Status Date / Time Penicillins Allergy Unknown Verified 09/05/18 21:37 Childhood gluten AdvReac Nausea & Verified 09/05/18 21:37 Vomiting lactose AdvReac Nausea & Verified 09/05/18 21:37 Vomiting Review of Systems ROS Statement: Those systems with pertinent positive or pertinent negative responses have been documented in the HPI. ROS Other: All systems not noted in ROS Statement are negative. Past Medical History Past Medical History: Asthma, GERD/Reflux, Mitral Valve Prolapse (MVP) Additional Past Medical History / Comment(s): BLADDER INFECTIONS, PANCREATITIS, lung nodules and blood clot in lungs, liver mass, heart murmur, bronchitis history, DVT, SOB 06/03/2018, IBS, CELIAC DISEASE History of Any Multi-Drug Resistant Organisms: None Reported Past Surgical History: Appendectomy, Cholecystectomy, Hernia Repair Additional Past Surgical History / Comment(s): RT CALF MUCSLE REPAIRED AFTER LACERATION INURY Past Anesthesia/Blood Transfusion Reactions: No Reported Reaction Past Psychological History: Anxiety Smoking Status: Former smoker Past Alcohol Use History: Occasional Past Drug Use History: None Reported - Past Family History Father Family Medical History: COPD Additional Family Medical History / Comment(s): UNK, GASTROINTESTINAL PROBLEMS Mother Family Medical History: Thyroid Disorder Additional Family Medical History / Comment(s): MURMUR, sarcoidosis, General Exam Limitations: no limitations General appearance: alert, in no apparent distress, other (This is a well- developed, well-nourished adult female patient in no acute distress. Vital signs upon presentation are temperature 99.3F, pulse 71, respirations 18, blood pressure 125/91, pulse ox 98% on room air.) Eye exam: Present: normal appearance, PERRL, EOMI. Absent: scleral icterus, conjunctival injection, periorbital swelling ENT exam: Present: normal exam, normal oropharynx, mucous membranes moist Respiratory exam: Present: normal lung sounds bilaterally. Absent: respiratory distress, wheezes, rales, rhonchi, stridor Cardiovascular Exam: Present: regular rate, normal rhythm, normal heart sounds. Absent: systolic murmur, diastolic murmur, rubs, gallop, clicks GI/Abdominal exam: Present: soft, normal bowel sounds. Absent: distended, tenderness, guarding, rebound, rigid External exam: Present: other (Patient does have suture intact to the posterior forchette. Area is pink without swelling, erythema, or drainage.) Speculum exam: Present: vaginal bleeding (Mild, presence of lochia rubra.) By manual exam: Present: uterine enlargement, uterine tenderness (mild) Neurological exam: Present: alert, oriented X3, CN II-XII intact Psychiatric exam: Present: normal affect, normal mood Skin exam: Present: warm, dry, intact, normal color. Absent: rash Course Vital Signs 09/05/18 09/05/18 09/06/18 21:15 22:20 00:00 Temperature 99.3 F 99 F 98.9 F Pulse Rate 71 77 72 Respiratory 18 18 18 Rate Blood Pressure 125/91 127/87 127/87 O2 Sat by Pulse 98 97 97 Oximetry 09/06/18 00:20 Temperature 98.9 F Pulse Rate 75 Respiratory 20 Rate Blood Pressure 125/90 O2 Sat by Pulse 98 Oximetry Medical Decision Making - Medical Decision Making 28-year-old female patient presents to the emergency department today for evaluation of fever and feeling generally unwell. Patient is also reporting some mild shortness of breath and history of pulmonary embolism however she is currently taking heparin injections. Physical examination was generally unremarkable. Lungs clear to auscultation with good air movement. Chest x-ray showed no acute cardiopulmonary process. Labs reviewed and are relatively unremarkable. Urinalysis did show some evidence of blood however patient is having vaginal bleeding currently. We will send this for culture. Pelvic examination did reveal presence of lochia rubra no other abnormalities. Bimanual exam did reveal some mild uterine enlargement is some mild tenderness. Did obtain pelvic ultrasound which showed presence of 10 mm of fluid in the endometrium which could relate to endometritis or retained products of conception. Patient's T-max in the department was 100.0. I did discuss findings with my attending Dr. Kelley. He recommends discharge for this patient and prompt follow up with her OBGYN. I did discuss return parameters in detail. Patient is instructed to call [facility] for a sooner appointment. She verbalizes understanding and agrees this plan - Lab Data Result diagrams: 09/05/18 21:12 09/05/18 21:12 Lab Results 09/05/18 09/05/18 09/05/18 Range/Units 21:12 21:12 21:12 WBC 5.9 (3.8-10.6) k/uL RBC 4.58 (3.80-5.40) m/uL Hgb 14.0 (11.4-16.0) gm/dL Hct 44.1 (34.0-46.0) % MCV 96.3 (80.0-100.0) fL MCH 30.5 (25.0-35.0) pg MCHC 31.7 (31.0-37.0) g/dL RDW 13.4 (11.5-15.5) % Plt Count 466 H (150-450) k/uL Neutrophils % 58 % Lymphocytes % 36 % Monocytes % 4 % Eosinophils % 1 % Basophils % 1 % Neutrophils # 3.4 (1.3-7.7) k/uL Lymphocytes # 2.1 (1.0-4.8) k/uL Monocytes # 0.2 (0-1.0) k/uL Eosinophils # 0.1 (0-0.7) k/uL Basophils # 0.0 (0-0.2) k/uL Sodium 140 (137-145) mmol/L Potassium 4.5 (3.5-5.1) mmol/L Chloride 106 (98-107) mmol/L Carbon Dioxide 25 (22-30) mmol/L Anion Gap 9 mmol/L BUN 9 (7-17) mg/dL Creatinine 0.67 (0.52-1.04) mg/dL Est GFR (CKD-EPI)AfAm >90 (>60 ml/min/1.73 sqM) Est GFR (CKD-EPI)NonAf >90 (>60 ml/min/1.73 sqM) Glucose 96 (74-99) mg/dL Plasma Lactic Acid Stan 1.2 (0.7-2.0) mmol/L Calcium 10.8 H (8.4-10.2) mg/dL Total Bilirubin 0.3 (0.2-1.3) mg/dL AST 30 (14-36) U/L ALT 35 (9-52) U/L Alkaline Phosphatase 127 H (38-126) U/L Total Protein 8.1 (6.3-8.2) g/dL Albumin 4.3 (3.5-5.0) g/dL Urine Color Urine Appearance (Clear) Urine pH (5.0-8.0) Ur Specific [place] (1.001-1.035) Urine Protein (Negative) Urine Glucose (UA) (Negative) Urine Ketones (Negative) Urine Blood (Negative) Urine Nitrite (Negative) Urine Bilirubin (Negative) Urine Urobilinogen (<2.0) mg/dL Ur Leukocyte Esterase (Negative) Urine RBC (0-5) /hpf Urine WBC (0-5) /hpf Ur Squamous Epith Cells (0-4) /hpf Urine Mucus (None) /hpf 09/05/18 Range/Units 21:44 WBC (3.8-10.6) k/uL RBC (3.80-5.40) m/uL Hgb (11.4-16.0) gm/dL Hct (34.0-46.0) % MCV (80.0-100.0) fL MCH (25.0-35.0) pg MCHC (31.0-37.0) g/dL RDW (11.5-15.5) % Plt Count (150-450) k/uL Neutrophils % % Lymphocytes % % Monocytes % % Eosinophils % % Basophils % % Neutrophils # (1.3-7.7) k/uL Lymphocytes # (1.0-4.8) k/uL Monocytes # (0-1.0) k/uL Eosinophils # (0-0.7) k/uL Basophils # (0-0.2) k/uL Sodium (137-145) mmol/L Potassium (3.5-5.1) mmol/L Chloride (98-107) mmol/L Carbon Dioxide (22-30) mmol/L Anion Gap mmol/L BUN (7-17) mg/dL Creatinine (0.52-1.04) mg/dL Est GFR (CKD-EPI)AfAm (>60 ml/min/1.73 sqM) Est GFR (CKD-EPI)NonAf (>60 ml/min/1.73 sqM) Glucose (74-99) mg/dL Plasma Lactic Acid Stan (0.7-2.0) mmol/L Calcium (8.4-10.2) mg/dL Total Bilirubin (0.2-1.3) mg/dL AST (14-36) U/L ALT (9-52) U/L Alkaline Phosphatase (38-126) U/L Total Protein (6.3-8.2) g/dL Albumin (3.5-5.0) g/dL Urine Color Yellow Urine Appearance Cloudy H (Clear) Urine pH 6.0 (5.0-8.0) Ur Specific [place] 1.026 (1.001-1.035) Urine Protein 1+ H (Negative) Urine Glucose (UA) Negative (Negative) Urine Ketones Trace H (Negative) Urine Blood Moderate H (Negative) Urine Nitrite Negative (Negative) Urine Bilirubin Negative (Negative) Urine Urobilinogen 2.0 (<2.0) mg/dL Ur Leukocyte Esterase Large H (Negative) Urine RBC 4 (0-5) /hpf Urine WBC 12 H (0-5) /hpf Ur Squamous Epith Cells 5 H (0-4) /hpf Urine Mucus Many H (None) /hpf - Radiology Data Radiology results: report reviewed Two-view x-ray of the chest is obtained. Heart and mediastinum are normal. Lungs are clear. Diaphragm is normal. Bony thorax appears normal. Impression by Dr. Collins shows normal chest with no change. Transvaginal ultrasound of the pelvis was obtained. Report was reviewed in its entirety. M impression by Dr. Collins shows fluid in the endometrial cavity that measures up to 10 mm this could relate to endometritis. Retained products is not entirely excluded. Minimal free fluid in the cul-de-sac. No adnexal mass. Ovaries are not seen. Disposition Clinical Impression: bleeding, Pelvic pain Disposition: HOME SELF-CARE Condition: Good Instructions: Pelvic Pain (ED) Additional Instructions: Continue monitoring temperature. Follow-up with your [facility] for recheck as soon as possible. Return to the emergency department for any new, worsening, or concerning symptoms. Is patient prescribed a controlled substance at d/c from ED?: No Referrals: Connor De La Garza DO [Doctor of Osteopathic Medicine] - 1-2 days Time of Disposition: 00:20
[2018-09-05 22:02] LABS: Appearance,Urine Cloudy (Clear); Bilirubin,Urine Negative (Negative); Blood,Urine Moderate (Negative); Color,Urine Yellow; Glucose,Urine (UA) Negative (Negative); Ketones,Urine Trace (Negative); Leukocyte Esterase,Urine Large (Negative); Mucus,Urine Many /hpf; Nitrite,Urine Negative (Negative); Protein,Urine 1+ (Negative); RBC,Urine 4 /hpf (0-5); Specific Gravity,Urine 1.026 (1.001-1.035); Squamous Epithelial Cell,Urine 5 /hpf (0-4); WBC,Urine 12 /hpf (0-5)
[2018-09-05 22:07] LABS: Basophils % (A) 1 %; Eosinophils # (A) 0.1 k/uL (0-0.7); Eosinophils % (A) 1 %; HCT 44.1 % (34.0-46.0); Lymphocytes # (A) 2.1 k/uL (1.0-4.8); Lymphocytes % (A) 36 %; MCH 30.5 pg (25.0-35.0); MCHC 31.7 g/dL (31.0-37.0); MCV 96.3 fL (80.0-100.0); Mean Platelet Volume 6.4; Monocytes # (A) 0.2 k/uL (0-1.0); Monocytes % (A) 4 %; Neutrophils # (A) 3.4 k/uL (1.3-7.7); Neutrophils % (A) 58 %; Platelet Count 466 k/uL (150-450); RBC 4.58 m/uL (3.80-5.40); RDW 13.4 % (11.5-15.5); WBC 5.9 k/uL (3.8-10.6)
[2018-09-05 22:16] LABS: ALT 35 U/L (9-52); AST 30 U/L (14-36); Albumin 4.3 g/dL (3.5-5.0); Alkaline Phosphatase 127 U/L (38-126); Anion Gap 9 mmol/L; Blood Urea Nitrogen 9 mg/dL (7-17); Calcium 10.8 mg/dL (8.4-10.2); Carbon Dioxide 25 mmol/L (22-30); Chloride 106 mmol/L (98-107); Glucose 96 mg/dL (74-99); Potassium 4.5 mmol/L (3.5-5.1); Sodium 140 mmol/L (137-145); Total Bilirubin 0.3 mg/dL (0.2-1.3); Total Protein 8.1 g/dL (6.3-8.2)
--- NOTE | 2018-09-05 22:24 | XR ---
EXAMINATION TYPE: XR chest 2V DATE OF EXAM: 09/05/2018 COMPARISON: 12/20/2015 HISTORY: Chest pain TECHNIQUE: Frontal and lateral views of the chest are obtained. FINDINGS: Heart and mediastinum are normal. Lungs are clear. Diaphragm is normal. Bony thorax appear s normal. IMPRESSION: Normal chest. No change.
--- NOTE | 2018-09-05 23:29 | US ---
EXAMINATION TYPE: US transvaginal DATE OF EXAM: 09/05/2018 COMPARISON: NONE CLINICAL HISTORY: Pain. Post x 9 days ago. Pain and bleeding. TECHNIQUE: Transvaginal (TV). EXAM MEASUREMENTS: Uterus: 12.7 x 7.9 x 8.9 cm 1. Uterus: Anteverted Hypoechoic area seen left 1.1cm. 2. Endometrium: Ill defined borders fluid seen within 1cm. 3. Right Ovary: Obscured by overlying bowel gas 4. Left Ovary: Obscured by overlying bowel gas 5. Bilateral Adnexa: wnl 6. Posterior cul-de-sac: wnl IMPRESSION: There is fluid in the endometrial cavity that measures up to 10 mm the could relate to en dometritis. Retained products is not entirely excluded. Minimal free fluid in the cul-de-sac. No adne xal mass. Ovaries are not seen.
[2018-09-06 00:07] VITALS: TEMP 98.9
[2018-09-06 00:21] VITALS: BP 125/90; PULSE 75; RESP 20
== END 2018-09-06 00:28 | disposition home or self-care (01) ==
LOC: EC 20:39
DX: O72.2 Delayed and secondary postpartum hemorrhage (principal); O86.4 Pyrexia of unknown origin following delivery; O90.89 Other complications of the puerperium, not elsewhere classified; R10.2 Pelvic and perineal pain; R06.02 Shortness of breath; J45.909 Unspecified asthma, uncomplicated; Z86.718 Personal history of other venous thrombosis and embolism; Z79.01 Long term (current) use of anticoagulants; Z88.0 Allergy status to penicillin; Z91.011 Allergy to milk products; Z91.018 Allergy to other foods
CPT/HCPCS: 36415; 71046; 76830; 80053; 81001; 83605; 85025; 87040; 87070; 87086; 87205; 96360; 96361; 99284

== ENCOUNTER → 2018-10-11 | Outpatient (CLI) | payer OTHER ==
--- NOTE | 2018-10-11 09:38 | US ---
EXAMINATION TYPE: US transvaginal DATE OF EXAM: 10/11/2018 COMPARISON: US CLINICAL HISTORY: R10.2 Pelvic pain. Pt states abnormal vaginal bleeding since delivery of baby last month, previous abnormal US TECHNIQUE: Transvaginal (TV). Pt bladder not full, pt wanted TV performed EXAM MEASUREMENTS: Uterus: 8.7 x 3.8 x 5.0 cm Endometrial Stripe: 0.7 cm Right Ovary: 3.5 x 3.1 x 1.4 cm Left Ovary: 2.8 x 2.6 x 1.4 cm 1. Uterus: Retroverted Heterogeneous 2. Endometrium: wnl, fluid seen on previous exam not visualized on today's exam 3. Right Ovary: wnl, follicles 4. Left Ovary: wnl, follicles 5. Bilateral Adnexa: wnl 6. Posterior cul-de-sac: Moderate amount of free fluid IMPRESSION: 1. Moderate free fluid within the cul-de-sac of uncertain etiology. 2. Small follicular cyst.
== END | disposition home or self-care (01) ==
LOC: RADUSWWP 08:57
PROVIDERS: ATTEND Obstetrics & Gynecology
DX: N83.00 Follicular cyst of ovary, unspecified side (principal)
CPT/HCPCS: 76830

== ENCOUNTER 2019-08-31 16:51 | Emergency (ER) | payer OTHER ==
[2019-08-31] MEDS ORDERED: SODIUM CHLORIDE 0.9% 500 ML 500 ML IV ONE (17:22)
--- NOTE | 2019-08-31 17:32 | ED ---
General Adult HPI - General Chief complaint: Abdominal Pain Stated complaint: problem Time Seen by Provider: 08/31/19 17:01 Source: patient, RN notes reviewed Mode of arrival: ambulatory Limitations: no limitations - History of Present Illness Initial comments: 29-year-old female with complicated past medical history presents to the emergency department for a chief complaint of possible lost mucous plug. Patient states she is about 8 weeks . States her last menstrual period was at the beginning of June. States that today she was going to the bathroom when a "glob" of mucus came out of her vagina. Patient states she thinks it is her mucous plug. She denies any abdominal pain or cramping. Denies any vaginal bleeding.Patient has no other complaints at this time including shortness of breath, chest pain, abdominal pain, nausea or vomiting, headache, or visual changes. - Related Data Home Medications Medication Instructions Recorded Confirmed Albuterol Nebulized [Ventolin 2.5 mg INHALATION RT-BID PRN 08/31/16 09/05/18 Nebulized] Pnv No.95/Ferrous Fum/Folic AC 1 tab PO DAILY 05/31/18 09/05/18 [ Multivitamin Tablet] Fluticasone/Salmeterol [Advair Hfa 2 puff INHALATION BID PRN 06/03/18 09/05/18 115-21 Mcg Inhaler] Heparin Sodium,Porcine [Heparin 10,000 unit SQ BID 08/27/18 09/05/18 Sodium] Previous Rx's Medication Instructions Recorded Ibuprofen [Motrin] 600 mg PO Q6HR PRN #30 tab 08/28/18 Allergies Allergy/AdvReac Type Severity Reaction Status Date / Time Penicillins Allergy Unknown Verified 08/31/19 16:58 Childhood gluten AdvReac Nausea & Verified 08/31/19 16:58 Vomiting lactose AdvReac Nausea & Verified 08/31/19 16:58 Vomiting Review of Systems ROS Statement: Those systems with pertinent positive or pertinent negative responses have been documented in the HPI. ROS Other: All systems not noted in ROS Statement are negative. Past Medical History Past Medical History: Asthma, GERD/Reflux, Mitral Valve Prolapse (MVP) Additional Past Medical History / Comment(s): BLADDER INFECTIONS, PANCREATITIS, lung nodules and blood clot in lungs, liver mass, heart murmur, bronchitis history, DVT, SOB 06/03/2018, IBS, CELIAC DISEASE History of Any Multi-Drug Resistant Organisms: None Reported Past Surgical History: Appendectomy, Cholecystectomy, Hernia Repair Additional Past Surgical History / Comment(s): RT CALF MUCSLE REPAIRED AFTER LACERATION INURY Past Anesthesia/Blood Transfusion Reactions: No Reported Reaction Past Psychological History: Anxiety Smoking Status: Former smoker Past Alcohol Use History: None Reported Past Drug Use History: None Reported - Past Family History Father Family Medical History: COPD Additional Family Medical History / Comment(s): UNK, GASTROINTESTINAL PROBLEMS Mother Family Medical History: Thyroid Disorder Additional Family Medical History / Comment(s): MURMUR, sarcoidosis, General Exam Limitations: no limitations General appearance: alert, in no apparent distress Head exam: Present: atraumatic, normocephalic, normal inspection Eye exam: Present: normal appearance, PERRL, EOMI. Absent: scleral icterus, conjunctival injection, periorbital swelling ENT exam: Present: normal exam, mucous membranes moist Neck exam: Present: normal inspection, full ROM. Absent: tenderness, meningismus, lymphadenopathy Respiratory exam: Present: normal lung sounds bilaterally. Absent: respiratory distress, wheezes, rales, rhonchi, stridor Cardiovascular Exam: Present: regular rate, normal rhythm, normal heart sounds. Absent: systolic murmur, diastolic murmur, rubs, gallop, clicks GI/Abdominal exam: Present: soft, normal bowel sounds. Absent: distended, tenderness, guarding, rebound, rigid External exam: Present: normal external exam. Absent: erythema, swelling, lesi ons, lacerations, ecchymosis Speculum exam: Present: cervical discharge (clearish mariscal). Absent: normal speculum exam, erythema, vaginal discharge By manual exam: Present: normal by manual exam. Absent: cervical motion tenderness, adnexal tenderness, adnexal mass, uterine enlargement, uterine tenderness Course Vital Signs 08/31/19 16:55 Temperature 98.8 F Pulse Rate 85 Respiratory 16 Rate Blood Pressure 118/74 O2 Sat by Pulse 98 Oximetry Medical Decision Making - Medical Decision Making Pelvic exam did reveal some vaginal discharge. No pelvic tenderness. CBC and CMP are unremarkable. Trichomonas is negative. Gonorrhea and chlamydia pending. Urine is unremarkable. HCG Quant is pending. ultrasound shows a living single intrauterine fetus with a gestational age of 8 weeks and 5 days. No complicating process seen. However given vaginal discharge I did recommend patient be treated empirically for gonorrhea and chlamydia. However patient refuses stating she is not concerned for this and would like to find out the results before taking any medications. Patient is aware that sexually transmitted infections do increase the risk of miscarriage. She will follow up with [facility] tomorrow. She'll return if she has any worsening symptoms. She is educated to follow up on culture results in 2 days. - Lab Data Result diagrams: 08/31/19 17:32 08/31/19 17:32 Lab Results 08/31/19 08/31/19 08/31/19 Range/Units 17:32 17:32 17:32 WBC 4.7 (3.8-10.6) k/uL RBC 3.68 L (3.80-5.40) m/uL Hgb 11.7 (11.4-16.0) gm/dL Hct 33.7 L (34.0-46.0) % MCV 91.8 (80.0-100.0) fL MCH 31.9 (25.0-35.0) pg MCHC 34.7 (31.0-37.0) g/dL RDW 12.5 (11.5-15.5) % Plt Count 345 (150-450) k/uL Neutrophils % 47 % Lymphocytes % 44 % Monocytes % 4 % Eosinophils % 2 % Basophils % 0 % Neutrophils # 2.2 (1.3-7.7) k/uL Lymphocytes # 2.1 (1.0-4.8) k/uL Monocytes # 0.2 (0-1.0) k/uL Eosinophils # 0.1 (0-0.7) k/uL Basophils # 0.0 (0-0.2) k/uL Sodium 138 (137-145) mmol/L Potassium 3.8 (3.5-5.1) mmol/L Chloride 109 H (98-107) mmol/L Carbon Dioxide 20 L (22-30) mmol/L Anion Gap 9 mmol/L BUN 7 (7-17) mg/dL Creatinine 0.47 L (0.52-1.04) mg/dL Est GFR (CKD-EPI)AfAm >90 (>60 ml/min/1.73 sqM) Est GFR (CKD-EPI)NonAf >90 (>60 ml/min/1.73 sqM) Glucose 95 (74-99) mg/dL Calcium 9.2 (8.4-10.2) mg/dL Total Bilirubin 0.1 L (0.2-1.3) mg/dL AST 18 (14-36) U/L ALT 14 (9-52) U/L Alkaline Phosphatase 62 (38-126) U/L Total Protein 6.9 (6.3-8.2) g/dL Albumin 3.7 (3.5-5.0) g/dL Urine Color Urine Appearance (Clear) Urine pH (5.0-8.0) Ur Specific [place] (1.001-1.035) Urine Protein (Negative) Urine Glucose (UA) (Negative) Urine Ketones (Negative) Urine Blood (Negative) Urine Nitrite (Negative) Urine Bilirubin (Negative) Urine Urobilinogen (<2.0) mg/dL Ur Leukocyte Esterase (Negative) Trichomonas Ag (Rapid) Negative (Negative) 08/31/19 Range/Units 17:32 WBC (3.8-10.6) k/uL RBC (3.80-5.40) m/uL Hgb (11.4-16.0) gm/dL Hct (34.0-46.0) % MCV (80.0-100.0) fL MCH (25.0-35.0) pg MCHC (31.0-37.0) g/dL RDW (11.5-15.5) % Plt Count (150-450) k/uL Neutrophils % % Lymphocytes % % Monocytes % % Eosinophils % % Basophils % % Neutrophils # (1.3-7.7) k/uL Lymphocytes # (1.0-4.8) k/uL Monocytes # (0-1.0) k/uL Eosinophils # (0-0.7) k/uL Basophils # (0-0.2) k/uL Sodium (137-145) mmol/L Potassium (3.5-5.1) mmol/L Chloride (98-107) mmol/L Carbon Dioxide (22-30) mmol/L Anion Gap mmol/L BUN (7-17) mg/dL Creatinine (0.52-1.04) mg/dL Est GFR (CKD-EPI)AfAm (>60 ml/min/1.73 sqM) Est GFR (CKD-EPI)NonAf (>60 ml/min/1.73 sqM) Glucose (74-99) mg/dL Calcium (8.4-10.2) mg/dL Total Bilirubin (0.2-1.3) mg/dL AST (14-36) U/L ALT (9-52) U/L Alkaline Phosphatase (38-126) U/L Total Protein (6.3-8.2) g/dL Albumin (3.5-5.0) g/dL Urine Color Yellow Urine Appearance Clear (Clear) Urine pH 5.5 (5.0-8.0) Ur Specific [place] 1.028 (1.001-1.035) Urine Protein Trace H (Negative) Urine Glucose (UA) Negative (Negative) Urine Ketones Negative (Negative) Urine Blood Negative (Negative) Urine Nitrite Negative (Negative) Urine Bilirubin Negative (Negative) Urine Urobilinogen <2.0 (<2.0) mg/dL Ur Leukocyte Esterase Negative (Negative) Trichomonas Ag (Rapid) (Negative) Disposition Clinical Impression: , Vaginal discharge during Disposition: HOME SELF-CARE Condition: Good Instructions (If sedation given, give patient instructions): Vaginal Discharge (ED) Additional Instructions: Please follow up with the [facility] as soon as possible. Follow-up with culture results in 2 days. Return to the emergency department if you have any worsening symptoms. Is patient prescribed a controlled substance at d/c from ED?: No Referrals: Connor De La Garza DO [Doctor of Osteopathic Medicine] - 1-2 days Time of Disposition: 18:54
[2019-08-31 17:44] LABS: Basophils % (A) 0 %; Eosinophils # (A) 0.1 k/uL (0-0.7); Eosinophils % (A) 2 %; HCT 33.7 % (34.0-46.0); HGB 11.7 gm/dL (11.4-16.0); Lymphocytes # (A) 2.1 k/uL (1.0-4.8); Lymphocytes % (A) 44 %; MCH 31.9 pg (25.0-35.0); MCHC 34.7 g/dL (31.0-37.0); MCV 91.8 fL (80.0-100.0); Mean Platelet Volume 5.4; Monocytes # (A) 0.2 k/uL (0-1.0); Monocytes % (A) 4 %; Neutrophils # (A) 2.2 k/uL (1.3-7.7); Neutrophils % (A) 47 %; Platelet Count 345 k/uL (150-450); RBC 3.68 m/uL (3.80-5.40); RDW 12.5 % (11.5-15.5); WBC 4.7 k/uL (3.8-10.6)
[2019-08-31 17:49] LABS: Appearance,Urine Clear (Clear); Bilirubin,Urine Negative (Negative); Blood,Urine Negative (Negative); Color,Urine Yellow; Glucose,Urine (UA) Negative (Negative); Ketones,Urine Negative (Negative); Leukocyte Esterase,Urine Negative (Negative); Nitrite,Urine Negative (Negative); PH, Urine 5.5 (5.0-8.0); Protein,Urine Trace (Negative); Specific Gravity,Urine 1.028 (1.001-1.035); Urobilinogen,Urine <2.0 mg/dL (<2.0)
[2019-08-31 17:53] LABS: ALT 14 U/L (9-52); AST 18 U/L (14-36); African American GFR (CKD) >90 (>60 ml/min/1.73 sqM); Albumin 3.7 g/dL (3.5-5.0); Alkaline Phosphatase 62 U/L (38-126); Anion Gap 9 mmol/L; Blood Urea Nitrogen 7 mg/dL (7-17); Calcium 9.2 mg/dL (8.4-10.2); Carbon Dioxide 20 mmol/L (22-30); Chloride 109 mmol/L (98-107); Glucose 95 mg/dL (74-99); Potassium 3.8 mmol/L (3.5-5.1); Sodium 138 mmol/L (137-145); Total Bilirubin 0.1 mg/dL (0.2-1.3); Total Protein 6.9 g/dL (6.3-8.2)
--- NOTE | 2019-08-31 18:22 | US ---
EXAMINATION TYPE: Transabdominal DATE OF EXAM: 08/31/2019 6:13 PM COMPARISON: NONE CLINICAL HISTORY: pain. EXAM PERFORMED: Transabdominal (TA) EXAM MEASUREMENTS: GESTATIONAL AGE / DATING Physician Established: Not yet established Dates by LMP: LMP unknown Dates by First Scan: No previous this is first scan Dates by Current Scan for: (8 weeks/5 days) EDC: 04/06/20 MATERNAL ANATOMY Uterus: 10.5 x 9.1 x 8.8cm Right Ovary: 3.5 x 2.2 x 2.2cm Left Ovary: 3.1 x 2.1 x 2.0cm Post CDS / Adnexa: wnl Presence of free fluid: no GESTATION / SURVEY CRL: 2.1cm ( weeks/5 days) Yolk Sac (normal less than 6mm): 3mm Heart Rate: 179 bpm Rhythm: Normal IUP: Viable IUP Date of LMP: unknown Beta HcG (if available): Not available at this time Viable IUP. IMPRESSION: Living single intrauterine fetus. The ultrasound gestational age is 8 weeks and 5 days. No complicating process seen.
[2019-08-31 19:08] VITALS: BP 116/77; PULSE 83; RESP 18; TEMP 99
[2019-09-02 13:44] LABS: N. gonorrhoeae,PCR Negative (Neg,Equiv); Neisseria Source Vagina
[2019-09-02 14:01] LABS: C. trachomatis,PCR Negative (Neg,Equiv); Chlamydia trachomatis Source Vagina
== END 2019-08-31 19:08 | disposition home or self-care (01) ==
LOC: EC 16:51
DX: O26.891 Other specified pregnancy related conditions, first trimester (principal); N89.8 Other specified noninflammatory disorders of vagina; J45.909 Unspecified asthma, uncomplicated; I34.1 Nonrheumatic mitral (valve) prolapse; Z79.51 Long term (current) use of inhaled steroids; Z88.0 Allergy status to penicillin; Z3A.08 8 weeks gestation of pregnancy; Z87.891 Personal history of nicotine dependence; Z91.048 Other nonmedicinal substance allergy status; Z87.440 Personal history of urinary (tract) infections
CPT/HCPCS: 36415; 76801; 80053; 81003; 84702; 85025; 87070; 87491; 87591; 87808; 96360; 99284

== ENCOUNTER → 2019-09-01 | Outpatient (CLI) | payer OTHER ==
--- NOTE | 2019-09-02 09:04 | US ---
EXAMINATION TYPE: Transabdominal DATE OF EXAM: 09/01/2019 5:22 PM COMPARISON: US 08/31/2019 CLINICAL HISTORY: Z36 Confirm Dates. Confirm dates. . EXAM PERFORMED: Transabdominal (TA) EXAM MEASUREMENTS: GESTATIONAL AGE / DATING Physician Established: Not yet established Dates by LMP: Unknown Dates by First Scan: (8 weeks/6 days) EDC: 04/06/2020 Dates by Current Scan for: (9 weeks/1 day) EDC: 04/04/2020 MATERNAL ANATOMY Uterus: 11.8 x 7.8 x 6.4 cm. Prominent peripheral vessels. Right Ovary: 3.4 x 1.9 x 1.6 cm. Left Ovary: 3.0 x 1.6 x 1.4 cm. Post CDS / Adnexa: Possible minimal fluid in CDS Presence of free fluid: Possible minimal fluid in CDS, minimal fluid seen superior to uterus. Presence of corpus luteal cyst: not seen Presence of subchorionic bleed: not seen GESTATION / SURVEY CRL: 2.46 cm (9 weeks/1 day) Yolk Sac (normal less than 6mm): 3.4 Heart Rate: 171 bpm Rhythm: Normal IUP: Live IUP Date of LMP: Unknown *Difficult to visualize ovaries until end of exam due to bowel peristalsis in bilateral adnexa. IMPRESSION: Single live intrauterine has a sonographic age of 9 weeks and 1 day and estimat ed date of delivery of 04/04/2020, concordant with dates by initial examination. Heart rate of 171 bpm , 179 bpm on the prior.
== END | disposition home or self-care (01) ==
LOC: RADUSWWP 16:51
PROVIDERS: ATTEND Obstetrics & Gynecology
DX: Z36.89 Encounter for other specified antenatal screening (principal)
CPT/HCPCS: 76801

== ENCOUNTER → 2020-01-28 | Outpatient (CLI) | payer OTHER | END | disposition home or self-care (01) | LOC: LABWHC1 15:24 | PROVIDERS: ATTEND Obstetrics & Gynecology | DX: J06.9 Acute upper respiratory infection, unspecified (principal) | CPT/HCPCS: 87502; U0002 ==

== ENCOUNTER 2020-03-26 15:17 | Outpatient (CLI) | payer BC, OTHER ==
[2020-03-26 17:53] VITALS: BP 133/78; PULSE 79; RESP 16; TEMP 98.6
--- NOTE | 2020-04-15 09:30 | P.MSEPDOC ---
Presenting Problems - Arrival Data Date of Arrival on Unit: 03/26/20 Time of Arrival on Unit: 15:15 Mode of Transport: Ambulatory - Complaint OB-Reason for Admission/Chief Complaint: NST Comment: arrived from office after non reactive nst at office. for prolonged fm due to tachycardia of fhr Medical History - Information : 3 Para: 2 Term: 2 : 0 Abortions: Spontaneous or Elective: 0 Number of Living Children: 2 - Gestational Age Gestational Age by DELANEY (wks/days): 38 Weeks and 5 Days Review of Systems - Review of Systems Constitutional: No problems Breast: No problems ENT: No problems Cardiovascular: No problems Respiratory: No problems Gastrointestinal: No problems Genitourinary: No problems Musculoskeletal: No problems Neurological: No problems Skin: No problems Vital Signs - Temperature Temperature: 98.6 F Temperature Source: Oral - Pulse Right Brachial Pulse Rate: 79 - Respirations Respiratory Rate: 16 Oxygen Delivery Method: Room Air O2 Sat by Pulse Oximetry: 100 - Blood Pressure Right Arm Blood Pressure: 133/78 Blood Pressure Mean: 96 Blood Pressure Source: Automatic Cuff Medical Screen Scoring (Pre) - Cervical Exam Dilation: 1-3 cm = 1 Membranes: Intact - Uterine Contractions Frequency: N/A Duration: N/A Intensity: N/A - Maternal Vital Signs Maternal Temperature: N/A Maternal Blood Pressure: N/A Signs of Preeclampsia: N/A Maternal Respirations: N/A - Maternal Trauma Maternal Trauma: N/A - Assessment - Baby A Baseline FHR: 135 Heart Rate - NICHD Category: Category I (Normal) = 0 NST: Reactive Position: N/A Station: N/A - Total Score - Baby A Total Score - Baby A: 1 - Total Score - Baby B Total Score - Baby B: 1 - Total Score - Baby C Total Score - Baby C: 1 - Level of Risk - Baby A Level of Risk - Baby A: Low (0-5) - Level of Risk - Baby B Level of Risk - Baby B: Low (0-5) - Level of Risk - Baby C Level of Risk - Baby C: Low (0-5) Physician Notification (Pre) - Physician Notified Physician Notified Date: 03/26/20 Physician Notified Time: 16:30 Spoke With: landon Grey Order Received: Yes - Notification Comment Comment: discharge home. to keep sched appt mon am for ind of labor with dr flor Disposition - Disposition OB Disposition: Discharge to home Discharge Date: 03/26/20 Discharge Time: 16:40 I agree with the RN Medical Screening Exam: Yes Risk & Benefit of care provided described in d/c instruction: Yes Diagnosis: MATERN CARE FOR ABNLT FETL HRT RATE OR RHYM, UNSP TRI, UNSP
== END 2020-03-26 16:40 | disposition home or self-care (01) ==
LOC: FBPOP 15:17
PROVIDERS: ATTEND Obstetrics & Gynecology
DX: O36.8330 Maternal care for abnormalities of the fetal heart rate or rhythm, third trimester, not applicable or unspecified (principal); Z3A.38 38 weeks gestation of pregnancy
CPT/HCPCS: 59025

== ENCOUNTER → 2020-03-26 | Outpatient (CLI) | payer BC, OTHER | END | disposition home or self-care (01) | LOC: LABWHC1 12:21 | PROVIDERS: ATTEND Obstetrics & Gynecology | DX: Z11.59 Encounter for screening for other viral diseases (principal) | CPT/HCPCS: 87635 ==

== ENCOUNTER 2020-03-28 04:38 | Inpatient (IN) | payer OTHER ==
[2020-03-28] MEDS ORDERED: OXYTOCIN 10 UNIT/ML 1 ML VIAL IM PRN (05:01)
[2020-03-28] MEDS ORDERED: CARBOPROST TROMETHAMINE 250 MCG/ML 1 ML AMP IM PRN (05:01)
[2020-03-28] MEDS ORDERED: LIDOCAINE 0.5% (PF) 5 MG/ML (50 ML SDV) SQ PRN (05:01)
[2020-03-28] MEDS ORDERED: TERBUTALINE 1 MG/ML VIAL SQ PRN (05:01)
[2020-03-28] MEDS ORDERED: METHYLERGONOVINE 0.2 MG/ML 1 ML AMP IM PRN (05:01)
[2020-03-28] MEDS ORDERED: LACTATED RINGERS 1,000 ML IV SCH (05:15)
[2020-03-28] MEDS ORDERED: CLINDAMYCIN 900 MG in DEXTROSE 5% IN WATER 50 ML IVPB ONE ×2 (05:15)
[2020-03-28 05:24] LABS: Basophils % (A) 1 %; Eosinophils # (A) 0.1 k/uL (0-0.7); Eosinophils % (A) 1 %; HCT 37.5 % (34.0-46.0); HGB 12.6 gm/dL (11.4-16.0); Lymphocytes # (A) 3.1 k/uL (1.0-4.8); Lymphocytes % (A) 44 %; MCH 31.6 pg (25.0-35.0); MCHC 33.6 g/dL (31.0-37.0); MCV 94.1 fL (80.0-100.0); Mean Platelet Volume 7.8; Monocytes # (A) 0.5 k/uL (0-1.0); Monocytes % (A) 6 %; Neutrophils # (A) 3.1 k/uL (1.3-7.7); Neutrophils % (A) 45 %; Platelet Count 287 k/uL (150-450); RBC 3.99 m/uL (3.80-5.40); RDW 13.6 % (11.5-15.5)
[2020-03-28] MEDS ORDERED: OXYTOCIN 20 UNITS/1000 ML NS 1,000 ML IV SCH (05:30)
[2020-03-28] MEDS ORDERED: LANOLIN CREAM 5 GM TUBE TOPICAL PRN (05:30)
[2020-03-28] MEDS ORDERED: BENZOCAINE/MENTHOL SPRAY 1 GM/SPRAY AEROSOL TOPICAL PRN (05:30)
[2020-03-28] MEDS ORDERED: HYDROCORTISONE 2.5% RECTAL CREAM 30 GM TUBE RECTAL PRN (05:30)
[2020-03-28] MEDS ORDERED: WITCH HAZEL 1 EACH MED..PAD TOPICAL PRN (05:30)
[2020-03-28] MEDS ORDERED: diphenhydrAMINE 50 MG/ML 1 ML VIAL IVP PRN ×2 (05:30)
[2020-03-28] MEDS ORDERED: diphenhydrAMINE 50 MG CAP PO PRN (05:30)
[2020-03-28] MEDS ORDERED: ZOLPIDEM 5 MG TAB PO PRN (05:30)
[2020-03-28] MEDS ORDERED: SIMETHICONE 80 MG CHEWABLE PO PRN (05:30)
[2020-03-28] MEDS ORDERED: ACETAMINOPHEN TAB 325 MG TAB PO PRN (05:30)
[2020-03-28] MEDS ORDERED: diphenhydrAMINE 25 MG CAP PO PRN (05:30)
--- NOTE | 2020-03-28 05:37 | P.HPOB ---
History of Present Illness H&P Date: 03/28/20 Chief Complaint: Induction of Labor 30 year old presented to L&D in active labor. Her cervix was 9cm dilated and she was gabriel every 2 minutes. heart tones 130 with moderate variability. Review of Systems All systems: negative Constitutional: Denies chills, Denies fever Eyes: denies blurred vision, denies pain Ears, nose, mouth and throat: Denies headache, Denies sore throat Cardiovascular: Denies chest pain, Denies shortness of breath Respiratory: Denies cough Gastrointestinal: Denies abdominal pain, Denies diarrhea, Denies nausea, Denies vomiting Genitourinary: Denies dysuria, Denies hematuria Musculoskeletal: Denies myalgias Integumentary: Denies pruritus, Denies rash Neurological: Denies numbness, Denies weakness Psychiatric: Denies anxiety, Denies depression Endocrine: Denies fatigue, Denies weight change Past Medical History Past Medical History: Asthma, GERD/Reflux, Mitral Valve Prolapse (MVP) Additional Past Medical History / Comment(s): BLADDER INFECTIONS, PANCREATITIS, lung nodules and blood clot in lungs, liver mass, heart murmur, bronchitis history, DVT, SOB 06/03/2018, IBS, CELIAC DISEASE. OBstetric history: 2 vaginal deliveries and this is her third . She has been on heparin for this and getting surveillance for hx of PE. History of Any Multi-Drug Resistant Organisms: None Reported Past Surgical History: Appendectomy, Cholecystectomy, Hernia Repair Additional Past Surgical History / Comment(s): RT CALF MUCSLE REPAIRED AFTER LACERATION INURY Past Anesthesia/Blood Transfusion Reactions: No Reported Reaction Smoking Status: Never smoker - Past Family History Father Family Medical History: COPD Additional Family Medical History / Comment(s): UNK, GASTROINTESTINAL PROBLEMS Mother Family Medical History: Thyroid Disorder Additional Family Medical History / Comment(s): MURMUR, sarcoidosis, Medications and Allergies Home Medications Medication Instructions Recorded Confirmed Type Pnv No.95/Ferrous Fum/Folic AC 1 tab PO DAILY MDD 1 tab 05/31/18 03/28/20 History [ Multivitamin Tablet] Heparin Sodium,Porcine [Heparin 10,000 unit SQ Q12HR 03/28/20 03/28/20 History Sodium] Allergies Allergy/AdvReac Type Severity Reaction Status Date / Time Penicillins Allergy Unknown Verified 03/28/20 04:43 Childhood gluten AdvReac Nausea & Verified 03/28/20 04:43 Vomiting lactose AdvReac Nausea & Verified 03/28/20 04:43 Vomiting Exam Osteopathic Statement: *. No significant issues noted on an osteopathic structural exam other than those noted in the History and Physical/Consult. Intake and Output 03/27/20 03/27/20 03/28/20 14:59 22:59 06:59 Other: Weight 83.007 kg When I saw the patient she had just delivered and was about to deliver placenta abdomen-uterus is firm, rest of abdomen soft Extremeties: neg kush's Results Result Diagrams: 03/28/20 05:07 Assessment and Plan (1) Normal labor and delivery Current Visit: Yes Status: Acute Code(s): O80 - ENCOUNTER FOR FULL-TERM UNCOMPLICATED DELIVERY SNOMED Code(s): 17667228 Plan: 1. pt was admitted to family and delivered quickly. 2. my plan is to deliver placenta and start pp care.
--- NOTE | 2020-03-28 05:40 | P.PROBDLV ---
Vaginal Delivery Note - . Vaginal Delivery Note: 30 year old presented to family in active labor at 39 weeks. Her cervix was 9 cm dilated and she was gabriel every 2 minutes. heart tones 130 with moderate variability. She is admitted to a room and I was called. A was on my way to the hospital and when I did arrive she had just delivered at 5:12 AM The was in the warmer crying and the cord was clamped at the perineum is anticipating the delivery of the placenta. Cord blood was obtained for the Rh- status. Placenta delivered spontaneously, intact with three-vessel cord at 5:19 AM. Vagina, cervix, and perineum were inspected. No lacerations noted. Estimated blood loss 150 mL. Mother and baby in stable condition.
[2020-03-28 05:49] LABS: INR 0.9 (<1.2); Partial Thromboplastin Time 23.3 sec (22.0-30.0); Prothrombin Time 9.6 sec (9.0-12.0)
[2020-03-28 05:56] VITALS: RESP 16
[2020-03-28] MEDS: IBUPROFEN 600 MG TAB PO PRN ×2 (06:11→21:19)
[2020-03-28] MEDS ORDERED: PRENATAL VIT-IRON-FOLIC ACID 1 EACH CAP PO SCH (09:00)
[2020-03-28] MEDS: SENNOSIDES-DOCUSATE SODIUM 1 EACH TAB PO SCH ×2 (09:32→21:19)
[2020-03-28] MEDS: HEPARIN SODIUM,PORCINE 5,000 UNIT/ML 1 ML VIAL SQ SCH ×2 (09:32→21:14)
[2020-03-28] MEDS ORDERED: Rhogam IMMUNE GLOBULIN 1,500 UNIT/1 ML IM ONE (09:33)
[2020-03-29 06:12] LABS: Basophils % (A) 1 %; Eosinophils # (A) 0.1 k/uL (0-0.7); Eosinophils % (A) 1 %; HGB 11.3 gm/dL (11.4-16.0); Lymphocytes # (A) 2.3 k/uL (1.0-4.8); Lymphocytes % (A) 31 %; MCH 31.5 pg (25.0-35.0); MCHC 32.3 g/dL (31.0-37.0); MCV 97.4 fL (80.0-100.0); Monocytes # (A) 0.4 k/uL (0-1.0); Monocytes % (A) 5 %; Neutrophils # (A) 4.5 k/uL (1.3-7.7); Neutrophils % (A) 60 %; Platelet Count 245 k/uL (150-450); RBC 3.59 m/uL (3.80-5.40); WBC 7.5 k/uL (3.8-10.6)
[2020-03-29 08:13] VITALS: PULSE 80
--- NOTE | 2020-03-29 09:01 | P.PNOBGVD ---
Subjective - Subjective Principal diagnosis: day 1 Interval history: Patient is doing very well. Ambulating, voiding and tolerating her diet. It baby is able will plan discharge to home later today. Patient reports: Reports appetite normal, Reports voiding normally, Reports pain well controlled, Reports ambulating normally : doing well Objective - Latest Vital Signs Latest vital signs: Vital Signs Temp Pulse Resp BP 03/29/20 08:00 98.0 F 80 16 117/78 03/29/20 00:00 98.4 F 73 16 124/67 03/28/20 16:36 98.5 F 83 16 116/76 03/28/20 11:45 98.4 F 66 16 121/76 - Exam Lungs: bilateral: normal Chest: Normal S1, Normal S2 Extremities: Present: normal Abdomen: Present: normal appearance, soft Uterus: Present: normal, firm - Labs Labs: Abnormal Lab Results - Last 24 Hours (Table) 03/29/20 Range/Units 05:54 RBC 3.59 L (3.80-5.40) m/uL Hgb 11.3 L (11.4-16.0) gm/dL
[2020-03-29] MEDS: HEPARIN SODIUM,PORCINE 5,000 UNIT/ML 1 ML VIAL SQ SCH (09:23)
[2020-03-29] MEDS: SENNOSIDES-DOCUSATE SODIUM 1 EACH TAB PO SCH (09:24)
[2020-03-29] MEDS: IBUPROFEN 600 MG TAB PO PRN (11:07)
--- NOTE | 2020-03-29 13:01 | P.DS ---
Providers Date of admission: 03/28/20 04:53 Expected date of discharge: 03/29/20 Attending physician: Connor De La Garza Primary care physician: Stated None Hospital Course: Patient is doing very well day 1. She is ambulating, voiding and tolerating her diet. She voices no complaints. Vital signs are stable and afebrile. Heart regular, lungs clear, extremities without pain. Abdomen soft uterus is firm and lochia is reported light. Discharge instructions were thoroughly reviewed. She is aware to continue use of heparin twice daily for 6 weeks and then will be able to stop. All questions were answered for her at this time. She is aware should she start having any signs or symptoms of DVT or concern for discharged breath/PE she will report emergency room immediately and also notify our office. All the questions are answered for her to is stable for just discharged this time. Patient Condition at Discharge: Good Plan - Discharge Summary New Discharge Prescriptions: New Ibuprofen [Motrin] 600 mg PO Q6HR PRN #30 tab PRN Reason: Pain No Action Pnv No.95/Ferrous Fum/Folic AC [ Multivitamin Tablet] 1 tab PO DAILY MDD 1 tab Heparin Sodium,Porcine [Heparin Sodium] 10,000 unit SQ Q12HR Discharge Medication List Pnv No.95/Ferrous Fum/Folic AC [ Multivitamin Tablet] 1 tab PO DAILY MDD 1 tab 05/31/18 [History] Heparin Sodium,Porcine [Heparin Sodium] 10,000 unit SQ Q12HR 03/28/20 [History] Ibuprofen [Motrin] 600 mg PO Q6HR PRN #30 tab 03/29/20 [Rx] Follow up Appointment(s)/Referral(s): Connor De La Garza DO [Doctor of Osteopathic Medicine] - 1 Week Activity/Diet/Wound Care/Special Instructions: No heavy lifting, limit stairs and driving, and pelvic rest. If any high temperatures, heavy bleeding, or severe pain call my office Discharge Disposition: HOME SELF-CARE
[2020-03-29 15:38] VITALS: BP 120/79; TEMP 98.7
== END 2020-03-29 16:15 | disposition home or self-care (01) | DRG 807 ==
LOC: FBPOP 04:38 → 4FBP 04:53
PROVIDERS: ADMIT Obstetrics & Gynecology; ATTEND Obstetrics & Gynecology
PROC: 10E0XZZ Delivery of Products of Conception, External Approach (ICD-10-PCS; principal; 2020-03-28)
PROC: 3E0234Z Introduction of Serum, Toxoid and Vaccine into Muscle, Percutaneous Approach (ICD-10-PCS; 2020-03-28)
DX: O99.52 Diseases of the respiratory system complicating childbirth (principal); Z37.0 Single live birth; I34.1 Nonrheumatic mitral (valve) prolapse; R16.0 Hepatomegaly, not elsewhere classified; J45.20 Mild intermittent asthma, uncomplicated; O99.62 Diseases of the digestive system complicating childbirth; K21.9 Gastro-esophageal reflux disease without esophagitis; O99.42 Diseases of the circulatory system complicating childbirth; Z3A.39 39 weeks gestation of pregnancy; K90.0 Celiac disease; R91.8 Other nonspecific abnormal finding of lung field; O26.893 Other specified pregnancy related conditions, third trimester; K58.9 Irritable bowel syndrome, unspecified; Z79.01 Long term (current) use of anticoagulants; Z79.899 Other long term (current) drug therapy; Z87.828 Personal history of other (healed) physical injury and trauma; Z90.49 Acquired absence of other specified parts of digestive tract; Z98.890 Other specified postprocedural states; Z86.711 Personal history of pulmonary embolism; Z87.891 Personal history of nicotine dependence; Z91.419 Personal history of unspecified adult abuse; Z86.59 Personal history of other mental and behavioral disorders; Z67.21 Type B blood, Rh negative; Z88.0 Allergy status to penicillin; Z91.018 Allergy to other foods; Z82.5 Family history of asthma and other chronic lower respiratory diseases; Z82.49 Family history of ischemic heart disease and other diseases of the circulatory system; Z83.79 Family history of other diseases of the digestive system; Z83.6 Family history of other diseases of the respiratory system
CPT/HCPCS: 84112; 85025; 85461; 85610; 85730; 86850; 86900; 86901; 88307; 99213

== ENCOUNTER 2020-08-06 14:20 | Observation (INO) | payer BC, OTHER ==
[2020-08-06] MEDS ORDERED: ASPIRIN 81 MG PO STA (15:00)
[2020-08-06 15:31] LABS: Appearance,Urine Cloudy (Clear); Bacteria,Urine Rare /hpf; Bilirubin,Urine Negative (Negative); Blood,Urine Negative (Negative); Color,Urine Light Yellow; Glucose,Urine (UA) Negative (Negative); Ketones,Urine Negative (Negative); Leukocyte Esterase,Urine Large (Negative); Mucus,Urine Rare /hpf; Nitrite,Urine Negative (Negative); PH, Urine 7.5 (5.0-8.0); Protein,Urine Negative (Negative); RBC,Urine 1 /hpf (0-5); Specific Gravity,Urine 1.016 (1.001-1.035); Squamous Epithelial Cell,Urine 9 /hpf (0-4); Urobilinogen,Urine <2.0 mg/dL (<2.0); WBC,Urine 9 /hpf (0-5)
[2020-08-06 15:48] LABS: ALT 37 U/L (4-34); AST 39 U/L (14-36); African American GFR (CKD) >90 (>60 ml/min/1.73 sqM); Albumin 4.4 g/dL (3.5-5.0); Alkaline Phosphatase 94 U/L (38-126); Anion Gap 8 mmol/L; Blood Urea Nitrogen 8 mg/dL (7-17); Calcium 9.6 mg/dL (8.4-10.2); Carbon Dioxide 25 mmol/L (22-30); Chloride 105 mmol/L (98-107); Glucose 88 mg/dL (74-99); Magnesium 2.2 mg/dL (1.6-2.3); Non-African American GFR(CKD) >90 (>60 ml/min/1.73 sqM); Potassium 4.7 mmol/L (3.5-5.1); Sodium 138 mmol/L (137-145); Total Bilirubin 0.6 mg/dL (0.2-1.3); Total Protein 7.8 g/dL (6.3-8.2)
[2020-08-06 15:57] LABS: Basophils % (A) 1 %; Eosinophils # (A) 0.1 k/uL (0-0.7); Eosinophils % (A) 2 %; HCT 35.9 % (34.0-46.0); HGB 12.6 gm/dL (11.4-16.0); Lymphocytes % (A) 53 %; MCH 31.9 pg (25.0-35.0); MCHC 35.1 g/dL (31.0-37.0); Mean Platelet Volume 8.4; Monocytes # (A) 0.3 k/uL (0-1.0); Monocytes % (A) 9 %; Neutrophils # (A) 1.3 k/uL (1.3-7.7); Neutrophils % (A) 34 %; Platelet Count 249 k/uL (150-450); RBC 3.94 m/uL (3.80-5.40); RDW 13.1 % (11.5-15.5); WBC 3.7 k/uL (3.8-10.6)
--- NOTE | 2020-08-06 16:19 | ED ---
General Adult HPI - General Chief complaint: Chest Pain Stated complaint: Chest Pain, SOB Time Seen by Provider: 08/06/20 14:45 Source: patient, RN notes reviewed, old records reviewed Mode of arrival: ambulatory Limitations: no limitations - History of Present Illness Initial comments: 30-year-old female patient with a past medical history of PE in 2011 presents to ED for chief complaint of some waxing and waning chest pain and shortness of breath that has been ongoing for the past couple of weeks. Patient also reports she is having some lateral rib pain that somewhat pleuritic in nature and feels similar to her PE that she had a number of years back. Patient reports that after her last for which she had uncomplicated vaginal delivery, march of 2020 she has not been on any blood thinners. Systemic: Pt denies fatigue, fever/chills, rash. Pt denies weakness, night sweats, weight loss. Neuro: Pt denies headache, visual disturbances, syncope or pre-syncope. HEENT: Pt denies ocular discharge or irritation, otalgia, rhinorrhea, pharyngitis or notable lymphadenopathy. Cardiopulmonary: Pt denies heart palpitations, dyspnea on exertion. Abdominal/GI: Pt denies abdominal pain, n/v/d. : Pt denies dysuria, burning w/ urination, frequency/urgency. Denies new onset urinary or bowel incontinence. MSK: Pt denies myalgia, loss of strength or function in extremities. Neuro: Pt denies new onset weakness, paresthesias. - Related Data Home Medications Medication Instructions Recorded Confirmed +Low Iron 27mg-1mg 1 tab PO DAILY 08/06/20 08/06/20 Allergies Allergy/AdvReac Type Severity Reaction Status Date / Time Penicillins Allergy Unknown Verified 08/06/20 16:34 Childhood gluten AdvReac Nausea & Verified 08/06/20 16:34 Vomiting lactose AdvReac Nausea & Verified 08/06/20 16:34 Vomiting Review of Systems ROS Statement: Those systems with pertinent positive or pertinent negative responses have been documented in the HPI. ROS Other: All systems not noted in ROS Statement are negative. Past Medical History Past Medical History: Asthma, GERD/Reflux, Mitral Valve Prolapse (MVP) Additional Past Medical History / Comment(s): BLADDER INFECTIONS, PANCREATITIS, lung nodules and blood clot in lungs, liver mass, heart murmur, bronchitis history, DVT, SOB 06/03/2018, IBS, CELIAC DISEASE. OBstetric history: 2 vaginal deliveries and this is her third . She has been on heparin for this and getting surveillance for hx of PE. History of Any Multi-Drug Resistant Organisms: None Reported Past Surgical History: Appendectomy, Cholecystectomy, Hernia Repair Additional Past Surgical History / Comment(s): RT CALF MUCSLE REPAIRED AFTER LACERATION INURY Past Anesthesia/Blood Transfusion Reactions: No Reported Reaction Past Psychological History: Anxiety Smoking Status: Never smoker Past Alcohol Use History: None Reported Past Drug Use History: None Reported - Past Family History Father Family Medical History: COPD Additional Family Medical History / Comment(s): UNK, GASTROINTESTINAL PROBLEMS Mother Family Medical History: Thyroid Disorder Additional Family Medical History / Comment(s): MURMUR, sarcoidosis, General Exam - General Exam Comments Initial Comments: Constitutional: NAD, AOX3, Pt has pleasant affect. HEENT: NC/AT, trachea midline, neck supple, no lymphadenopathy. External ears appear normal, without discharge. Mucous membranes moist. Eyes PERRLA, EOM intact. There is no scleral icterus. No pallor noted. Cardiopulmonary: RRR, no murmurs, rubs or gallops, no JVD noted. Lungs CTAB in anterior and posterior cleary. No peripheral edema. Abdominal exam: Abdomen soft and non-distended. Abdomen non-tender to palpation in all 4 quadrants. Bowel sounds active in LLQ. No hepatosplenomegaly. No ecchymosis Neuro: CN II-XII intact. No nuchal rigidity. No cervical spinal tenderness. MSK: No posterior calf tenderness bilaterally, homans sign negative bilaterally. Posterior tibialis and radial pulse +2 bilaterally. Sensation intact in upper and lower extremities. Full active ROM in upper and lower extremities, 5/5 s tregnth. Limitations: no limitations Course Vital Signs 08/06/20 08/06/20 14:39 16:20 Temperature 97.8 F Pulse Rate 81 85 Respiratory 16 18 Rate Blood Pressure 131/88 149/98 O2 Sat by Pulse 100 100 Oximetry Medical Decision Making - Medical Decision Making 80-year-old female patient is ED with chief complaint of some waxing and waning chest pain shortness of breath the last couple weeks. Patient is from a of 2019. Patient felt and are stable, afebrile. Physical exam did not display acute pathology. Laboratory investigations were significant with some very mild elevation of liver enzymes and minimally elevated troponin. CT is p erformed and is negative for acute process. EKG is nonischemic 2. Patient was administered aspirin. Will be admitted for serial troponins, echocardiogram. Csae discussed with Dr. Tabares. - Lab Data Result diagrams: 08/06/20 15:09 08/06/20 15:09 Lab Results 08/06/20 08/06/20 08/06/20 Range/Units 15:09 15:09 15:09 WBC 3.7 L (3.8-10.6) k/uL RBC 3.94 (3.80-5.40) m/uL Hgb 12.6 (11.4-16.0) gm/dL Hct 35.9 (34.0-46.0) % MCV 91.0 (80.0-100.0) fL MCH 31.9 (25.0-35.0) pg MCHC 35.1 (31.0-37.0) g/dL RDW 13.1 (11.5-15.5) % Plt Count 249 (150-450) k/uL Neutrophils % 34 % Lymphocytes % 53 % Monocytes % 9 % Eosinophils % 2 % Basophils % 1 % Neutrophils # 1.3 (1.3-7.7) k/uL Lymphocytes # 2.0 (1.0-4.8) k/uL Monocytes # 0.3 (0-1.0) k/uL Eosinophils # 0.1 (0-0.7) k/uL Basophils # 0.0 (0-0.2) k/uL Manual Slide Review Performed Anisocytosis (manual) Present Stomatocytes Present Sodium 138 (137-145) mmol/L Potassium 4.7 (3.5-5.1) mmol/L Chloride 105 (98-107) mmol/L Carbon Dioxide 25 (22-30) mmol/L Anion Gap 8 mmol/L BUN 8 (7-17) mg/dL Creatinine 0.68 (0.52-1.04) mg/dL Est GFR (CKD-EPI)AfAm >90 (>60 ml/min/1.73 sqM) Est GFR (CKD-EPI)NonAf >90 (>60 ml/min/1.73 sqM) Glucose 88 (74-99) mg/dL Calcium 9.6 (8.4-10.2) mg/dL Magnesium 2.2 (1.6-2.3) mg/dL Total Bilirubin 0.6 (0.2-1.3) mg/dL AST 39 H (14-36) U/L ALT 37 H (4-34) U/L Alkaline Phosphatase 94 (38-126) U/L Troponin I 0.040 H* (0.000-0.034) ng/mL NT-Pro-B Natriuret Pep pg/mL Total Protein 7.8 (6.3-8.2) g/dL Albumin 4.4 (3.5-5.0) g/dL Urine Color Urine Appearance (Clear) Urine pH (5.0-8.0) Ur Specific [place] (1.001-1.035) Urine Protein (Negative) Urine Glucose (UA) (Negative) Urine Ketones (Negative) Urine Blood (Negative) Urine Nitrite (Negative) Urine Bilirubin (Negative) Urine Urobilinogen (<2.0) mg/dL Ur Leukocyte Esterase (Negative) Urine RBC (0-5) /hpf Urine WBC (0-5) /hpf Ur Squamous Epith Cells (0-4) /hpf Urine Bacteria (None) /hpf Urine Mucus (None) /hpf Urine HCG, Qual (Not Detectd) 08/06/20 08/06/20 08/06/20 Range/Units 15:09 15:09 15:09 WBC (3.8-10.6) k/uL RBC (3.80-5.40) m/uL Hgb (11.4-16.0) gm/dL Hct (34.0-46.0) % MCV (80.0-100.0) fL MCH (25.0-35.0) pg MCHC (31.0-37.0) g/dL RDW (11.5-15.5) % Plt Count (150-450) k/uL Neutrophils % % Lymphocytes % % Monocytes % % Eosinophils % % Basophils % % Neutrophils # (1.3-7.7) k/uL Lymphocytes # (1.0-4.8) k/uL Monocytes # (0-1.0) k/uL Eosinophils # (0-0.7) k/uL Basophils # (0-0.2) k/uL Manual Slide Review Anisocytosis (manual) Stomatocytes Sodium (137-145) mmol/L Potassium (3.5-5.1) mmol/L Chloride (98-107) mmol/L Carbon Dioxide (22-30) mmol/L Anion Gap mmol/L BUN (7-17) mg/dL Creatinine (0.52-1.04) mg/dL Est GFR (CKD-EPI)AfAm (>60 ml/min/1.73 sqM) Est GFR (CKD-EPI)NonAf (>60 ml/min/1.73 sqM) Glucose (74-99) mg/dL Calcium (8.4-10.2) mg/dL Magnesium (1.6-2.3) mg/dL Total Bilirubin (0.2-1.3) mg/dL AST (14-36) U/L ALT (4-34) U/L Alkaline Phosphatase (38-126) U/L Troponin I (0.000-0.034) ng/mL NT-Pro-B Natriuret Pep 47 pg/mL Total Protein (6.3-8.2) g/dL Albumin (3.5-5.0) g/dL Urine Color Light Yellow Urine Appearance Cloudy H (Clear) Urine pH 7.5 (5.0-8.0) Ur Specific [place] 1.016 (1.001-1.035) Urine Protein Negative (Negative) Urine Glucose (UA) Negative (Negative) Urine Ketones Negative (Negative) Urine Blood Negative (Negative) Urine Nitrite Negative (Negative) Urine Bilirubin Negative (Negative) Urine Urobilinogen <2.0 (<2.0) mg/dL Ur Leukocyte Esterase Large H (Negative) Urine RBC 1 (0-5) /hpf Urine WBC 9 H (0-5) /hpf Ur Squamous Epith Cells 9 H (0-4) /hpf Urine Bacteria Rare H (None) /hpf Urine Mucus Rare H (None) /hpf Urine HCG, Qual Not Detected (Not Detectd) - EKG Data -: EKG Interpreted by Me (and Dr. Lopez ) EKG Comments: 1) ventricular rate 75, WA interval 180, QRS 84, QT/QTC 390/435. Sensory rhythm with sinus arrhythmia, normal EKG, no concern for acute ischemia. 2) Ventricular rate 64, WA interval 182, QRS 76. QT/QTc 416/429, Normal sinus rhytm with sinus arryhthmia, No Concern for acute ischemia at this time. Disposition Clinical Impression: Chest pain, Elevated troponin Disposition: ADMITTED IP TO THIS HOSP Condition: Serious Is patient prescribed a controlled substance at d/c from ED?: No Referrals: Sera Jim MD [Primary Care Provider] - 1-2 days
[2020-08-06 16:24] LABS: Anisocytosis (M) Present; Stomatocytes Present
--- NOTE | 2020-08-06 16:31 | CT ---
EXAMINATION TYPE: CT chest angio for PE DATE OF EXAM: 08/06/2020 COMPARISON: Prior chest 05/31/2018 HISTORY: Shortness of breath. CT DLP: 260.5 mGycm Automated exposure control for dose reduction was used. CONTRAST: CT Chest for pulmonary embolism performed with with IV Contrast, patient injected with 100 mL of Isov ue 370. FINDINGS: LUNGS: The lungs are grossly clear, there is no concerning parenchymal mass or nodule identified. T here is no pleural effusion or pneumothorax seen. The tracheobronchial tree is patent. MEDIASTINUM: There is satisfactory enhancement of the pulmonary artery and its branches, there is no CT evidence for pulmonary embolism. There are no greater than 1 cm hilar or mediastinal lymph nodes. No pericardial effusion is seen. AORTA: No additional significant abnormality is seen. OTHER: Post op changes to the gastroesophageal junction. IMPRESSION: No pulmonary embolism
[2020-08-06] MEDS ORDERED: NITROGLYCERIN SL TABS 0.4 MG TAB SUBLINGUAL PRN (16:54)
[2020-08-06] MEDS ORDERED: SODIUM CHLORIDE 0.9% 500 ML 500 ML IV ONE (17:28)
[2020-08-06 18:04] LABS: Prothrombin Time 10.1 sec (9.0-12.0)
[2020-08-06] MEDS: SODIUM CHLORIDE 0.9% 1,000 ML IV SCH (19:13)
--- NOTE | 2020-08-06 19:46 | P.HPIM ---
History of Present Illness H&P Date: 08/06/20 Chief Complaint: Severe shortness of breath, chest pain, elevated troponin, history of clott 30-year-old female one of Dr. Jim's patient with past medical history of asthma, recurrent UTI, recurrent blood clot mostly DVT, and history of IBS who presented to the emergency department at [facility] today complaining of chest pain or significant shortness of breath started 24 hours earlier patient had history of pulmonary embolism and DVT she was afraid of blood clot that she has giving to baby 4 months ago and has been sedentary lately. Patient work as a discharge planning in the hospital. Patient had no fever or chills has been having slight symptom with exertion on and off developed to have worsening discomfort in the back area and slight discomfort in the left side of her chest area worsening with deep inspiration and slightly bit aggravated with exertion. Patient was seen and evaluated her CTA was negative for PE found to have mildly elevated troponin and? Of UTI as well. Patient was hospitalized will do CK with troponin 3 see cardiology run an echocardiogram and patient will be study for pericarditis. Review of Systems CONSTITUTIONAL: Well-developed no acute respiratory distress. EYES: No icterus sclerae, no conjunctivitis. EARS, NOSE, MOUTH, THROAT, and FACE: No sore throat, lymphadenopathy, carotid bruits or deformity. RESPIRATORY: Positive shortness of breath no cough positive wheezes positive chest pain with exertion. CARDIOVASCULAR: Positive mild palpitation with PND and orthopnea and no angina. GASTROINTESTINAL: No Abd pain, Nausea or vomiting, no Diarrhea or constipation, No GI Bleed, no distention or masses. GENITOURINARY: Negative for Hematuria or UTI, no kidney stones. INTEGUMENT/BREAST: Negative for any muscular injury with mild osteoarthritis.. HEMATOLOGIC/LYMPHATIC: Negative for bleed or purpura. MUSCULOSKELTAL: Negative for Myalgia or arthralgia. NEURLOGICAL: No LOC, Sz or syncope, blurred vision dizziness or abnormality.. BEHAVIORAL/PSYCH: Negative. ENDOCRINE: Negative. Past Medical History Past Medical History: Asthma, GERD/Reflux, Mitral Valve Prolapse (MVP) Additional Past Medical History / Comment(s): BLADDER INFECTIONS, PANCREATITIS, lung nodules and blood clot in lungs, liver mass, heart murmur, bronchitis history, DVT, SOB 06/03/2018, IBS, CELIAC DISEASE. OBstetric history: 2 vaginal deliveries and this is her third . She has been on heparin for this and getting surveillance for hx of PE. History of Any Multi-Drug Resistant Organisms: None Reported Past Surgical History: Appendectomy, Cholecystectomy, Hernia Repair Additional Past Surgical History / Comment(s): RT CALF MUCSLE REPAIRED AFTER LACERATION INURY Past Anesthesia/Blood Transfusion Reactions: No Reported Reaction Past Psychological History: Anxiety Smoking Status: Never smoker Past Alcohol Use History: None Reported Past Drug Use History: None Reported - Past Family History Father Family Medical History: COPD Additional Family Medical History / Comment(s): UNK, GASTROINTESTINAL PROBLEMS Mother Family Medical History: Thyroid Disorder Additional Family Medical History / Comment(s): MURMUR, sarcoidosis, Medications and Allergies Home Medications Medication Instructions Recorded Confirmed Type +Low Iron 27mg-1mg 1 tab PO DAILY 08/06/20 08/06/20 History Allergies Allergy/AdvReac Type Severity Reaction Status Date / Time Penicillins Allergy Unknown Verified 08/06/20 16:34 Childhood gluten AdvReac Nausea & Verified 08/06/20 16:34 Vomiting lactose AdvReac Nausea & Verified 08/06/20 16:34 Vomiting Physical Exam Vitals: Vital Signs Temp Pulse Resp BP Pulse Ox 08/06/20 19:20 97.8 F 66 418 H 133/87 100 08/06/20 17:30 98.0 F 84 18 135/84 99 08/06/20 16:20 85 18 149/98 100 08/06/20 14:39 97.8 F 81 16 131/88 100 Intake and Output 08/06/20 08/06/20 08/06/20 06:59 14:59 22:59 Other: Weight 81.647 kg General Appearance: Alert, cooperative, no distress, appears stated age. Neck HEENT: Supple, no lymphadenopathy, no thyroid enlargement, no carotid bruits. Lungs: Decreased breath sounds bilaterally with fine rhonchi no crackles or wheezes. Chest Wall: Decrease expansion with deep inspiration no tenderness and no deformity was found on exam, no costochondral pain or discomfort. Heart: Regular rate and rhythm, S1, S2 positive soft mitral valve click. normal, no murmur, rub or gallop. Back: Symmetric, no curvature, ROM normal, no CVA tenderness. Abdomen: Soft, non-tender, bowel sounds active all four quadrants, no masses, no organomegaly. Extremities: Extremities normal, atraumatic, no cyanosis or edema. Pulses: 2+ and symmetric. Skin: Skin color, texture, tugor normal, no rashes or lesions. Neurologic: Alert oriented x3 cranial nerves II through XII intact, no motor deficit, no abnormal balance or gait. Results CBC & Chem 7: 08/06/20 15:09 08/06/20 15:09 Labs: Abnormal Lab Results - Last 24 Hours (Table) 08/06/20 08/06/20 08/06/20 Range/Units 15:09 15: 15:09 WBC 3.7 L (3.8-10.6) k/uL AST 39 H (14-36) U/L ALT 37 H (4-34) U/L Troponin I 0.040 H* (0.000-0.034) ng/mL Urine Appearance (Clear) Ur Leukocyte Esterase (Negative) Urine WBC (0-5) /hpf Ur Squamous Epith Cells (0-4) /hpf Urine Bacteria (None) /hpf Urine Mucus (None) /hpf 08/06/20 Range/Units 15:09 WBC (3.8-10.6) k/uL AST (14-36) U/L ALT (4-34) U/L Troponin I (0.000-0.034) ng/mL Urine Appearance Cloudy H (Clear) Ur Leukocyte Esterase Large H (Negative) Urine WBC 9 H (0-5) /hpf Ur Squamous Epith Cells 9 H (0-4) /hpf Urine Bacteria Rare H (None) /hpf Urine Mucus Rare H (None) /hpf Thrombosis Risk Factor Assmnt - DVT/VTE Prophylaxis DVT/VTE Prophylaxis: Mechanical Prophylaxis ordered Assessment and Plan Assessment: 1 chest pain: Atypical, patient had elevated troponin, EKG, echocardiogram and CK with troponin 3, consult cardiology so far EKG doesn't show any abnormality consistent with pericarditis mild PVCs only. 2 shortness of breath: No sign of pulmonary embolism through her CT at this point the patient had mild asthma with significant decrease in lung volume, can benefit from bronchodilator as a but agonist would start her back on Ventolin HFA continue O2 through the night. 3 leukopenia: No sign of infection specially viral repeat another CBC tomorrow morning. 4 history of coagulopathy with multiple blood clot in the past patient has not been on any blood thinner medication at this point even there is no evidencefor PE or DVT currently patient should talk to her primary care physician about the benefit versus the risk of being on anticoagulation. 5 elevated blood pressure: Blood pressure is trending slightly bit up at this point if continue to be above 1:30 patient can benefit from smaller dose of amlodipine like 2.5 mg or hydralazine 25 mg twice a day. 6 UTI: Patient will be started on oral cefuroxime to 50 mg twice a day and continue as an outpatient urine culture was order. 7 GI prophylaxis: Patient be on Pepcid 20 mg daily. 8 DVT prophylaxis: Early mobilization and knee-high BRANT hose and heparin subcutaneous. CODE STATUS: Full code. Admit patient to observation service for overnight stay.
[2020-08-06] MEDS: LEVOFLOXACIN 500 MG TAB PO SCH (21:01)
[2020-08-06] MEDS: HEPARIN SODIUM,PORCINE 5,000 UNIT/ML 1 ML VIAL SQ SCH (21:51)
[2020-08-06 23:20] LABS: Appearance,Urine Clear (Clear); Bilirubin,Urine Negative (Negative); Blood,Urine Negative (Negative); Color,Urine Yellow; Glucose,Urine (UA) Negative (Negative); Ketones,Urine Negative (Negative); Leukocyte Esterase,Urine Moderate (Negative); Mucus,Urine Rare /hpf; Nitrite,Urine Negative (Negative); Protein,Urine Negative (Negative); RBC,Urine <1 /hpf (0-5); Squamous Epithelial Cell,Urine 2 /hpf (0-4); Urobilinogen,Urine <2.0 mg/dL (<2.0); WBC,Urine 11 /hpf (0-5)
[2020-08-07] MEDS: SODIUM CHLORIDE 0.9% 1,000 ML IV SCH ×2 (06:06→20:13)
[2020-08-07 07:12] LABS: Basophils % (A) 1 %; Eosinophils # (A) 0.1 k/uL (0-0.7); Eosinophils % (A) 3 %; HCT 36.5 % (34.0-46.0); HGB 12.6 gm/dL (11.4-16.0); Lymphocytes # (A) 1.8 k/uL (1.0-4.8); Lymphocytes % (A) 48 %; MCH 31.9 pg (25.0-35.0); MCHC 34.5 g/dL (31.0-37.0); MCV 92.5 fL (80.0-100.0); Mean Platelet Volume 6.4; Monocytes # (A) 0.3 k/uL (0-1.0); Monocytes % (A) 7 %; Neutrophils # (A) 1.5 k/uL (1.3-7.7); Neutrophils % (A) 40 %; Platelet Count 342 k/uL (150-450); RBC 3.95 m/uL (3.80-5.40); RDW 13.2 % (11.5-15.5); WBC 3.7 k/uL (3.8-10.6)
[2020-08-07 07:23] LABS: Cholesterol 161 mg/dL (<200); HDL Cholesterol 37 mg/dL (40-60); LDL Cholesterol,Calculated 97 mg/dL (0-99); Triglycerides 133 mg/dL (<150)
[2020-08-07] MEDS: PRENATAL VIT-IRON-FOLIC ACID 1 EACH CAP PO SCH (08:59)
[2020-08-07] MEDS: HEPARIN SODIUM,PORCINE 5,000 UNIT/ML 1 ML VIAL SQ SCH ×2 (09:00→20:11)
[2020-08-07] MEDS: ASPIRIN 325 MG TAB PO SCH (09:00)
[2020-08-07] MEDS: FAMOTIDINE 20 MG TAB PO SCH (09:00)
[2020-08-07] MEDS ORDERED: IBUPROFEN 600 MG TAB PO STA (10:38)
--- NOTE | 2020-08-07 12:54 | ECHOF ---
Referral Reason:CP MEASUREMENTS -------- HEIGHT: 165.1 cm WEIGHT: 81.6 kg BP: RVIDd: 2.4 cm (< 3.3) IVSd: 1.2 cm (0.6 - 1.1) LVIDd: 3.6 cm (3.9 - 5.3) LVPWd: 1.1 cm (0.6 - 1.1) IVSs: 1.3 cm LVIDs: 2.7 cm LVPWs: 1.3 cm LAESV Index (A-L): 15.16 ml/m Ao Diam: 2.6 cm (2.0 - 3.7) AV Cusp: 1.4 cm (1.5 - 2.6) LA Diam: 2.7 cm (2.7 - 3.8) MV EXCURSION: 16.638 mm (> 18.000) MV EF SLOPE: 47 mm/s (70 - 150) EPSS: 0.3 cm RAP: 5.00 mmHg RVSP: 20.45 mmHg TAPSE: 20.17 mm FINDINGS -------- Sinus rhythm. This was a technically good study. The left ventricular size is normal. There is borderline concentric left ventricular hypertrophy. Overall left ventricular systolic function is low-normal with, an EF between 50 - 55 %. The right ventricle is normal in size. The left atrial size is normal. Normal LA size by volume 22+/-6 ml/m2. The right atrial size is normal. The aortic valve is trileaflet, and appears structurally normal. No aortic stenosis or regurgitation. Mild mitral regurgitation is present. Mild tricuspid regurgitation present. Right ventricular systolic pressure is normal at < 35 mmHg. There is no pulmonic regurgitation present. The aortic root size is normal. There is no pericardial effusion. CONCLUSIONS -------- 1. The left ventricular size is normal. 2. There is borderline concentric left ventricular hypertrophy. 3. Overall left ventricular systolic function is low-normal with, an EF between 50 - 55 %. 4. The right ventricle is normal in size. 5. The left atrial size is normal. 6. Normal LA size by volume 22+/-6 ml/m2. 7. The right atrial size is normal. 8. Mild mitral regurgitation is present. 9. Mild tricuspid regurgitation present. 10. There is no pulmonic regurgitation present. STONE SETTER: Balbina Barnes RDCS
--- NOTE | 2020-08-07 14:05 | P.CRDCN ---
History of Present Illness Consult date: 08/07/20 Requesting physician: Micky Tnisley Consult reason: chest pain (Elevated troponin) Chief complaint: Chest pain shortness of breath History of present illness: History of present illness: This is a 30-year-old black female with no previous history of coronary artery disease. Patient does have history of pulmonary embolism diagnosed in 2014 and completed course of Coumadin. History of lung nodules, asthma, mitral regurgitation, IBS. Patient states that she has had episodes of pain in the left lower posterior rib area which is similar to what she had when she was diagnosed with pulmonary embolism and was concerned that this had recurred. She also has had some episodes of lightheadedness and general espinoza fatigue. She has some chronic intermittent chest pains which she attributes to her mitral regurgitation. On Sunday she had recurrence of the lower left chest pain and some midsternal chest pain was concern for pulmonary embolism and came into the hospital for further evaluation. CTA of the chest was negative for pulmonary embolism. Orthostatics were negative. Troponins 0.040, 0.0122 draws. Alina BC 3.7, hemoglobin 12.6. Electrolytes and renal function normal. AST 39 and ALT 37. Triglycerides 133, cholesterol 161, HDL 37, LDL 97. Urinalysis clear with moderate leukoesterase. EKG was in normal sinus rhythm with no acute ST changes. Patient was concerned that she may have been developing reaction to the CAT scan and she was having increased symptoms following that procedure. Review Of Systems: Constitutional: No fever, no chills. Reports weakness. EENT: No headache. No dizziness. Lungs: No shortness of breath, cough, no sputum production. No wheezing. Cardiovascular: Reports chest pain, no lower extremity edema. Reports palpitations. No paroxysmal nocturnal dyspnea. No orthopnea. Reports lightheadedness or dizziness. No syncopal episodes. Abdominal: No abdominal pain. No nausea, vomiting. No diarrhea. Genitourinary: No dysuria. Musculoskeletal: No myalgias. No muscle weakness, no gait dysfunction, no frequent falls. No back pain. No neck pain. Integumentary: No wounds, no lesions. No rash or pruritus. Neurologic: No aphasia. No facial droop. No change in mentation. Endocrine: No abnormal blood sugars. Physical examination: Gen: This is a a 30 year old black female. She is resting in bed appears to be comfortable in no acute distress. VS: Afebrile, heart rate 81, blood pressure 118/60, pulse ox 99% on room air. HEENT: Head is atraumatic, normocephalic. Pupils equal, round. Sclerae is anicteric. NECK: Supple. No JVD. No lymphadenopathy. No thyromegaly. LUNGS: Clear to auscultation. No wheezes or rhonchi. No intercostal retraction s. HEART: Regular rate and rhythm. No murmur. ABDOMEN: Soft. Bowel sounds are present. No masses. No tenderness. EXTREMITIES: No pedal edema. No calf tenderness. Dorsalis pedis +2 bilaterally. NEUROLOGICAL: Patient is awake, alert and oriented x3. Cranial nerves 2 through 12 are grossly intact. Assessment: Chest pain with negative troponins, acute cardiac syndrome ruled out History of pulmonary embolism History of asthma Plan: Obtain 2-D echocardiogram and Doppler study to assess cardiac structure and function Monitor overnight for arrhythmias with plan for probable discharge tomorrow Further recommendations to follow based upon clinical course Thank you kindly for this consultation. Nurse practitioner note has been reviewed, I agree with documented findings and plan of care. Patient was seen and examined. Past Medical History Past Medical History: Asthma, GERD/Reflux, Mitral Valve Prolapse (MVP), Pulmonary Embolus (PE) Additional Past Medical History / Comment(s): BLADDER INFECTIONS, PANCREATITIS, lung nodules and blood clot in lungs, liver mass, heart murmur, bronchitis history, DVT, IBS, CELIAC DISEASE. OBstetric history: 3 vaginal deliveries History of Any Multi-Drug Resistant Organisms: None Reported Past Surgical History: Appendectomy, Cholecystectomy, Hernia Repair Additional Past Surgical History / Comment(s): RT CALF MUCSLE REPAIRED AFTER LACERATION INURY Past Anesthesia/Blood Transfusion Reactions: No Reported Reaction Past Psychological History: Anxiety Smoking Status: Never smoker Past Alcohol Use History: None Reported Additional Past Alcohol Use History / Comment(s): STARTED SMOKING AT AGE 20 SMOKED 2-3 HELIO PER DAY QUIT 2010 Past Drug Use History: None Reported - Past Family History Father Family Medical History: COPD Additional Family Medical History / Comment(s): UNK, GASTROINTESTINAL PROBLEMS Mother Family Medical History: Thyroid Disorder Additional Family Medical History / Comment(s): MURMUR, sarcoidosis, Medications and Allergies Home Medications Medication Instructions Recorded Confirmed Type +Low Iron 27mg-1mg 1 tab PO DAILY 08/06/20 08/06/20 History Allergies Allergy/AdvReac Type Severity Reaction Status Date / Time Penicillins Allergy Unknown Verified 08/06/20 16:34 Childhood gluten AdvReac Nausea & Verified 08/06/20 16:34 Vomiting lactose AdvReac Nausea & Verified 08/06/20 16:34 Vomiting Physical Exam Vitals: Vital Signs Temp Pulse Pulse Resp BP BP BP 08/07/20 04:00 98.3 F 81 18 08/07/20 03:22 65 18 08/07/20 00:00 65 18 130/80 128/81 08/06/20 21:26 98.6 F 69 18 08/06/20 21:20 65 18 08/06/20 21:00 98.0 F 60 18 125/81 08/06/20 19:20 97.8 F 66 18 133/87 08/06/20 17:30 98.0 F 84 18 135/84 08/06/20 16:20 85 18 149/98 08/06/20 14:39 97.8 F 81 16 131/88 BP BP Pulse Ox 08/07/20 04:00 118/60 99 08/07/20 03:22 08/07/20 00:00 124/77 100 08/06/20 21:26 131/77 100 08/06/20 21:20 08/06/20 21:00 100 08/06/20 19:20 100 08/06/20 17:30 99 08/06/20 16:20 100 08/06/20 14:39 100 Intake and Output 08/06/20 08/07/20 08/07/20 22:59 06:59 14:59 Intake Total 300 0 Output Total 100 Balance 200 0 Intake: Intake, IV Titration 300 Amount Sodium Chloride 0.9% 1, 300 000 ml @ 75 mls/hr IV . [id number] [facility] Rx#:[id number] Oral 0 Output: Urine 100 Other: Voiding Method Toilet Toilet Weight 81.647 kg 82 kg Results 08/07/20 06:40 08/06/20 15:09 Cardiac Enzymes 08/06/20 08/06/20 08/06/20 Range/Units 15:09 15:09 17:48 AST 39 H (14-36) U/L Troponin I 0.040 H* <0.012 (0.000-0.034) ng/mL 08/06/20 Range/Units 21:15 AST (14-36) U/L Troponin I <0.012 (0.000-0.034) ng/mL Coagulation 08/06/20 Range/Units 17:48 PT 10.1 (9.0-12.0) sec APTT 25.0 (22.0-30.0) sec Lipids 08/07/20 Range/Units 06:40 Triglycerides 133 (<150) mg/dL Cholesterol 161 (<200) mg/dL HDL Cholesterol 37 L (40-60) mg/dL CBC 08/06/20 08/07/20 Range/Units 15:09 06:40 WBC 3.7 L 3.7 L (3.8-10.6) k/uL RBC 3.94 3.95 (3.80-5.40) m/uL Hgb 12.6 12.6 (11.4-16.0) gm/dL Hct 35.9 36.5 (34.0-46.0) % Plt Count 249 342 (150-450) k/uL Comprehensive Metabolic Panel 08/06/20 Range/Units 15:09 Sodium 138 (137-145) mmol/L Potassium 4.7 (3.5-5.1) mmol/L Chloride 105 (98-107) mmol/L Carbon Dioxide 25 (22-30) mmol/L BUN 8 (7-17) mg/dL Creatinine 0.68 (0.52-1.04) mg/dL Glucose 88 (74-99) mg/dL Calcium 9.6 (8.4-10.2) mg/dL AST 39 H (14-36) U/L ALT 37 H (4-34) U/L Alkaline Phosphatase 94 (38-126) U/L Total Protein 7.8 (6.3-8.2) g/dL Albumin 4.4 (3.5-5.0) g/dL Current Medications Generic Name Dose Route Start Last Admin Trade Name Freq PRN Reason Stop Dose Admin Aspirin 325 mg 08/07/20 09:00 08/07/20 09:00 Aspirin 325 Mg Tab PO 325 mg DAILY KATHARINE Administration Famotidine 20 mg 08/07/20 09:00 08/07/20 09:00 Famotidine 20 Mg Tab PO 20 mg DAILY KATHARINE Administration Heparin Sodium (Porcine) 5,000 unit 08/06/20 21:00 08/07/20 09:00 Heparin Sodium,Porcine 5,000 Unit/Ml 1 Ml Vial SQ 5,000 unit Q12HR KATHARINE Administration Sodium Chloride 1,000 mls @ 75 mls/hr 08/06/20 17:30 08/07/20 06:06 Saline 0.9% IV 75 mls/hr .[id number] KATHARINE Administration Levofloxacin 500 mg 08/06/20 20:00 08/06/20 21:01 Levofloxacin 500 Mg Tab PO 500 mg Q24H KATHARINE Administration Multivi/Iron Carb/Fe Sulf/FA/Prenat 1 each 08/07/20 09:00 08/07/20 08:59 Zau-Tzyu-Lwtmn Acid 1 Each Cap PO 1 each DAILY KATHARINE Administration Nitroglycerin 0.4 mg 08/06/20 16:54 Nitroglycerin Sl Tabs 0.4 Mg Tab SUBLINGUAL Q5M PRN Chest Pain Intake and Output 08/06/20 08/07/20 08/07/20 22:59 06:59 14:59 Intake Total 300 0 Output Total 100 Balance 200 0 Intake: Intake, IV Titration 300 Amount Sodium Chloride 0.9% 1, 300 000 ml @ 75 mls/hr IV . [id number] [facility] Rx#:[id number] Oral 0 Output: Urine 100 Other: Voiding Method Toilet Toilet Weight 81.647 kg 82 kg 08/07/20 06:40 08/06/20 15:09
[2020-08-07] MEDS ORDERED: IPRATROPIUM-ALBUTEROL 3 ML NEB INHALATION PRN (15:39)
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
[2020-08-07] MEDS: LEVOFLOXACIN 500 MG TAB PO SCH (20:11)
[2020-08-07 21:08] VITALS: RESP 18
[2020-08-08] MEDS: HEPARIN SODIUM,PORCINE 5,000 UNIT/ML 1 ML VIAL SQ SCH (08:28)
[2020-08-08] MEDS: ASPIRIN 325 MG TAB PO SCH (08:28)
[2020-08-08] MEDS: FAMOTIDINE 20 MG TAB PO SCH (08:28)
[2020-08-08] MEDS: PRENATAL VIT-IRON-FOLIC ACID 1 EACH CAP PO SCH (08:28)
[2020-08-08] MEDS: SODIUM CHLORIDE 0.9% 1,000 ML IV SCH (08:28)
[2020-08-08 08:31] VITALS: BP 133/84; PULSE 67; TEMP 98.2
[2020-08-08 09:40] LABS: ALT 31 U/L (4-34); AST 28 U/L (14-36); African American GFR (CKD) >90 (>60 ml/min/1.73 sqM); Alkaline Phosphatase 85 U/L (38-126); Anion Gap 5 mmol/L; Blood Urea Nitrogen 8 mg/dL (7-17); Calcium 9.1 mg/dL (8.4-10.2); Carbon Dioxide 25 mmol/L (22-30); Chloride 108 mmol/L (98-107); Glucose 101 mg/dL (74-99); Non-African American GFR(CKD) >90 (>60 ml/min/1.73 sqM); Potassium 4.7 mmol/L (3.5-5.1); Sodium 138 mmol/L (137-145); Total Bilirubin 0.3 mg/dL (0.2-1.3); Total Protein 7.3 g/dL (6.3-8.2)
--- NOTE | 2020-08-08 10:14 | P.PN ---
Subjective Progress Note Date: 08/08/20 History of present illness: This is a 30-year-old black female with no previous history of coronary artery disease. Patient does have history of pulmonary embolism diagnosed in 2014 and completed course of Coumadin. History of lung nodules, asthma, mitral regurgitation, IBS. Patient states that she has had episodes of pain in the left lower posterior rib area which is similar to what she had when she was diagnosed with pulmonary embolism and was concerned that this had recurred. She also has had some episodes of lightheadedness and general espinoza fatigue. She has some chronic intermittent chest pains which she attributes to her mitral regurgitation. On Sunday she had recurrence of the lower left chest pain and some midsternal chest pain was concern for pulmonary embolism and came into the hospital for further evaluation. CTA of the chest was negative for pulmonary embolism. Orthostatics were negative. Troponins 0.040, 0.0122 draws. Alina BC 3.7, hemoglobin 12.6. Electrolytes and renal function normal. AST 39 and ALT 37. Triglycerides 133, cholesterol 161, HDL 37, LDL 97. Urinalysis clear with moderate leukoesterase. EKG was in normal sinus rhythm with no acute ST changes. Patient was concerned that she may have been developing reaction to the CAT scan and she was having increased symptoms following that procedure. 08/08: Patient is seen today in follow-up. She continues to have vague complaints of generalized chest pain. Patient has been afebrile, heart rate 67, blood pressure 133/84, pulse ox 99% on room air. Echocardiogram reveals EF of 50-55%, borderline concentric left ventricular hypertrophy, mild mitral regurgitation, mild tricuspid regurgitation. Patient is cleared by cardiology for discharge home. Physical examination: Gen: This is a a 30 year old black female. She is resting in bed appears to be comfortable in no acute distress. VS: Afebrile, heart rate 81, blood pressure 118/60, pulse ox 99% on room air. HEENT: Head is atraumatic, normocephalic. Pupils equal, round. Sclerae is anicteric. NECK: Supple. No JVD. No lymphadenopathy. No thyromegaly. LUNGS: Clear to auscultation. No wheezes or rhonchi. No intercostal retractions. HEART: Regular rate and rhythm. No murmur. ABDOMEN: Soft. Bowel sounds are present. No masses. No tenderness. EXTREMITIES: No pedal edema. No calf tenderness. Dorsalis pedis +2 bilaterally. NEUROLOGICAL: Patient is awake, alert and oriented x3. Cranial nerves 2 through 12 are grossly intact. Assessment: Chest pain with negative troponins, acute cardiac syndrome ruled out History of pulmonary embolism History of asthma Plan: Patient is cleared by cardiology for discharge home. Nurse practitioner note has been reviewed, I agree with documented findings and plan of care. Patient was seen and examined. Objective - Vital Signs Vital signs: Vital Signs Temp 98.2 F 08/08/20 08:00 Pulse 67 08/08/20 08:00 Resp 18 08/08/20 08:00 BP 133/84 08/08/20 08:00 Pulse Ox 99 08/08/20 08:00 Intake & Output 08/07/20 08/08/20 08/08/20 18:59 06:59 18:59 Intake Total 2050 600 600 Balance 2050 600 600 Weight 82.7 kg Intake: IV 1210 600 Invasive Line 1 10 Sodium Chloride 0.9% 1, 1200 600 000 ml @ 75 mls/hr IV . [id number] [facility] Rx#:[id number] Oral 840 600 Other: Voiding Method Toilet Toilet Toilet # Voids 1 - Labs CBC & Chem 7: 08/07/20 06:40 08/08/20 08:08 Labs: Abnormal Lab Results - Last 24 Hours (Table) 08/08/20 Range/Units 08:08 Chloride 108 H (98-107) mmol/L Glucose 101 H (74-99) mg/dL Microbiology - Last 24 Hours (Table) 08/06/20 15:09 Urine Culture - Final Urine,Clean Catch
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
== END 2020-08-08 13:04 | disposition home or self-care (01) ==
LOC: EC 14:20 → 3SCARD 16:54
PROVIDERS: ADMIT Internal Medicine Geriatric Medicine; ATTEND Internal Medicine Geriatric Medicine
DX: R07.9 Chest pain, unspecified (principal); R79.89 Other specified abnormal findings of blood chemistry; R06.02 Shortness of breath; R07.81 Pleurodynia; Z33.1 Pregnant state, incidental; I34.0 Nonrheumatic mitral (valve) insufficiency; D72.819 Decreased white blood cell count, unspecified; Z86.711 Personal history of pulmonary embolism; J45.909 Unspecified asthma, uncomplicated; I34.1 Nonrheumatic mitral (valve) prolapse; K21.9 Gastro-esophageal reflux disease without esophagitis; F41.9 Anxiety disorder, unspecified; Z87.440 Personal history of urinary (tract) infections; Z86.39 Personal history of other endocrine, nutritional and metabolic disease; Z87.09 Personal history of other diseases of the respiratory system; R01.1 Cardiac murmur, unspecified; K58.9 Irritable bowel syndrome, unspecified; Z90.49 Acquired absence of other specified parts of digestive tract; Z98.890 Other specified postprocedural states; Z87.19 Personal history of other diseases of the digestive system; Z82.5 Family history of asthma and other chronic lower respiratory diseases; Z83.6 Family history of other diseases of the respiratory system; Z84.89 Family history of other specified conditions; Z82.49 Family history of ischemic heart disease and other diseases of the circulatory system; Z88.0 Allergy status to penicillin; Z91.02 Food additives allergy status; Z91.011 Allergy to milk products
CPT/HCPCS: 96361 ×3; 96372 ×3; 93005 ×2; 96360; 99285; 36415; 93306; 83880; 80061; 80053 ×2; 83735; 84484; 85025 ×2; 85610; 85730; 81001; 81025; 87086; 71275; G0378 ×3; J1644 ×3; S0197 ×2; Q9967

== ENCOUNTER → 2020-11-22 | Outpatient (CLI) | payer OTHER ==
[~2020-11-22] MED LIST: cefTRIAXone 250 MG VIAL IM NR
[2020-11-22 12:03] VITALS: BP 117/73; PULSE 100; RESP 18; TEMP 98.8
== END | disposition home or self-care (01) ==
LOC: PROCWHC3 11:49
PROVIDERS: ATTEND Obstetrics & Gynecology
DX: A54.9 Gonococcal infection, unspecified (principal)
CPT/HCPCS: 96372; J2001; J0696

== ENCOUNTER → 2020-11-23 | Outpatient (CLI) | payer OTHER ==
--- NOTE | 2020-11-23 12:56 | US ---
EXAMINATION TYPE: Ultrasound OB <= 14 week fetus DATE OF EXAM: 11/23/2020 10:20 AM COMPARISON: NONE CLINICAL HISTORY: 30-year-old female [id number] Confirm dates. EXAM PERFORMED: Transabdominal (TA) FINDINGS: EXAM MEASUREMENTS: GESTATIONAL AGE / DATING Physician Established: Not yet established Dates by LMP: LMP unknown Dates by First Scan: No previous this is first scan Dates by Current Scan for: (13 weeks/1 days) EDC: 05/30/21 MATERNAL ANATOMY Uterus: 14.5 x 5.2 x 10.3cm Right Ovary: 5.4 x 2.1 x 2.2cm, cystic area = 2.5 x 2.2 x 2.4cm Left Ovary: 2.7 x 1.6 x 2.6cm Post CDS / Adnexa: wnl Presence of free fluid: no Presence of corpus luteal cyst: yes, thick-walled cystic area within the right ovary = 1.9 x 1.8 x 2. 1cm GESTATION / SURVEY CRL: 6.7cm (13 weeks/1 days) Yolk Sac (normal less than 6mm): 0.5cm Heart Rate: 160 bpm Rhythm: Normal IUP: Viable IUP Date of LMP: unknown Beta HcG (if available): Not available at this time IMPRESSION: 1. Single live intrauterine with gestational age of 13 weeks 1 day by CRL. 2. A 2.1 cm corpus luteum within the right ovary. 3. Complete survey recommended at 18-20 weeks.
== END | disposition home or self-care (01) ==
LOC: RADUSWWP 10:00
PROVIDERS: ATTEND Obstetrics & Gynecology
DX: O34.81 Maternal care for other abnormalities of pelvic organs, first trimester (principal); Z3A.13 13 weeks gestation of pregnancy
CPT/HCPCS: 76801

== ENCOUNTER 2020-11-24 16:20 | Observation (INO) | payer OTHER ==
--- NOTE | 2020-11-24 17:00 | ED ---
General Adult HPI - General Chief complaint: Neuro Symptoms/Deficit Stated complaint: 14 wks/facial tingle/left arm tingle/sob Time Seen by Provider: 11/24/20 16:38 Source: patient Mode of arrival: ambulatory Limitations: no limitations - History of Present Illness Initial comments: 30-year-old female presented for multiple complaints. Patient is currently 14 weeks she states she has history of blood clotting disorders they're not sure what it is that she has had one about 4-5 years ago. She states that since she's been she has been on Lovenox the past month 40 mg subcu daily. Patient states that she no she has a high d-dimer. Patient states that she had Covid about a month ago and has had chest pain on and off since. She s tates she feels like something is restricting her breathing she denies chest pain. Deep inspiration leg swelling calf pain or lower extremity edema she states that 2 PM today she had onset of her entire face feeling numb and tingling down her left arm she states her face also felt tingly. She states that this lasted approximately 30 minutes. Patient states that it then subsided--patient states when she got home the episode happened again and she took her blood pressure she states she is not sure how long the episode lasted but it resolved she sits her blood pressure was 140/99 and 139/106 at home. Patient states she became anxious and sweating.Patient has no current tingling/numbness sensation. pt denies visual changes, weakness, nausea, vomiting, chest pressure, she denies arm or leg weakness or facial asymmetry. Patient denies changes in her speech. Patient denies falls or trauma to the head. she staes she has had headaches on and off x the past week. Patient has no additional complaints and appears in no acute distress. NIH 0 - Related Data Home Medications Medication Instructions Recorded Confirmed +Low Iron 27mg-1mg 1 tab PO W/SUPPER 08/06/20 11/24/20 Enoxaparin [Lovenox] 40 mg SQ HS 11/22/20 11/24/20 Albuterol Sulfate [Proair Hfa] 2 puff INHALATION RT-Q6H PRN 11/24/20 11/24/20 Budesonide/Formoterol Fumarate 2 puff INHALATION RT-BID 11/24/20 11/24/20 [Symbicort 160-4.5 Mcg Inhaler] Allergies Allergy/AdvReac Type Severity Reaction Status Date / Time Penicillins Allergy Unknown Verified 11/24/20 18:14 Childhood gluten AdvReac Nausea & Verified 11/24/20 18:14 Vomiting lactose AdvReac Nausea & Verified 11/24/20 18:14 Vomiting Review of Systems ROS Statement: Those systems with pertinent positive or pertinent negative responses have been documented in the HPI. ROS Other: All systems not noted in ROS Statement are negative. Past Medical History Past Medical History: Asthma, GERD/Reflux, Mitral Valve Prolapse (MVP), Pulmonary Embolus (PE) Additional Past Medical History / Comment(s): BLADDER INFECTIONS, PANCREATITIS, lung nodules and blood clot in lungs, liver mass, heart murmur, bronchitis history, DVT, IBS, CELIAC DISEASE. OBstetric history: 3 vaginal deliveries, covid 11/01/20, History of Any Multi-Drug Resistant Organisms: None Reported Past Surgical History: Appendectomy, Cholecystectomy, Hernia Repair Additional Past Surgical History / Comment(s): RT CALF MUCSLE REPAIRED AFTER LACERATION INURY, Past Anesthesia/Blood Transfusion Reactions: No Reported Reaction Past Psychological History: Anxiety Smoking Status: Former smoker Past Alcohol Use History: None Reported Past Drug Use History: None Reported - Past Family History Father Family Medical History: COPD Additional Family Medical History / Comment(s): UNK, GASTROINTESTINAL PROBLEMS Mother Family Medical History: Thyroid Disorder Additional Family Medical History / Comment(s): MURMUR, sarcoidosis, General Exam - General Exam Comments Initial Comments: General: The patient is awake and alert, in no distress Eye: +3 mm pupils are equal, round and reactive to light, extra-ocular movements are intact. No nystagmus. There is normal conjunctiva bilaterally. No signs of icterus. Ears, nose, mouth and throat: There are moist mucous membranes and no oral lesions. Neck: The neck is supple, there is no tenderness or JVD. Cardiovascular: There is a regular rate and rhythm. No murmur, rub or gallop is appreciated. Respiratory: Lungs are clear to auscultation, respirations are non-labored, breath sounds are equal. No wheezes, stridor, rales, or rhonchi. Musculoskeletal: Normal ROM, no tenderness. Strength 5/5. Sensation intact. Pulses equal bilaterally 2+. Neurological: A&O x 3. CN II-XII intact, memory intact to immediately, intermediate and alf recall. Able to follow simple verbal. Able to name a common object. High quality, labial (pa) and lingual (la) speech. Low quality posterior pharynx/larynx (ga) voice sounds. Able to express general knowledge (days in a week). No hemineglect or inattention noted. Finger agnosia (-) and spatially oriented. Light touch sensation present over the face, chest, abdomen, back, UE bilaterally, and LE bilaterally. Able to localize point during point localization b/l and extinction. No visible bulk atrophy, hypertrophy, fasciculations, or myoclonus of the UE or LE b/l. Full PROM in UE and LE b/l. Bilateral muscle strength 5/5 for the following muscles: deltoid, biceps, triceps, brachioradialis, wrist extensors/flexor, hip flexor, hip abductors/adductors, hamstrings, quadriceps, feet dorsiflexors/plantar flexors. Finger to nose, finger to the examiners finger, and heel to ang coordinated and accurate b/l. Coordinated and even demonstration of hand flip, finger to thumb, and toe tap ,Gait is coordinated and even in stride. (-) pronator drift.ns. Skin: Skin is warm and dry and no rashes or lesions are noted. Psychiatric: Cooperative, appropriate mood & affect, normal judgment. Limitations: no limitations Course Vital Signs 11/24/20 11/24/20 11/24/20 16:27 16:57 18:00 Temperature 99.2 F Pulse Rate 130 H 95 101 H Respiratory 18 18 18 Rate Blood Pressure 147/85 148/85 136/94 O2 Sat by Pulse 100 99 100 Oximetry Medical Decision Making - Medical Decision Making Pt presenting for parathesias that resolved. no focla neurological deficits. hx of possible clotting disorder. covid last month. currently on lovenox. pt states she has had an increase in headaches. no headache currently. as pt is on anticoagulation with blood thinners CT obtained wt patient consent after discussing risk vs benefit to herself and fetus. patient EKG no acute findings. pt denies new chest pain or dyspnea. states chronic. patient refused CXR. or any further imaging studies stating she does not feel anything with the chest is acute. patient case discussed at length wtih attending who is agreeable to admission for neurological/cardiology consultation. carotid studies and echo ordered. pt agreeable to admission. - Lab Data Result diagrams: 11/24/20 17:52 11/24/20 17:52 Lab Results 11/24/20 11/24/20 11/24/20 Range/Units 17:52 17:52 17:52 WBC 7.4 (3.8-10.6) k/uL RBC 4.10 (3.80-5.40) m/uL Hgb 13.0 (11.4-16.0) gm/dL Hct 38.4 (34.0-46.0) % MCV 93.7 (80.0-100.0) fL MCH 31.8 (25.0-35.0) pg MCHC 33.9 (31.0-37.0) g/dL RDW 13.3 (11.5-15.5) % Plt Count 315 (150-450) k/uL MPV 6.8 Neutrophils % 56 % Lymphocytes % 35 % Monocytes % 5 % Eosinophils % 2 % Basophils % 1 % Neutrophils # 4.2 (1.3-7.7) k/uL Lymphocytes # 2.6 (1.0-4.8) k/uL Monocytes # 0.4 (0-1.0) k/uL Eosinophils # 0.1 (0-0.7) k/uL Basophils # 0.1 (0-0.2) k/uL PT 9.5 (9.0-12.0) sec INR 0.9 (<1.2) APTT 21.8 L (22.0-30.0) sec Sodium 134 L (137-145) mmol/L Potassium 4.0 (3.5-5.1) mmol/L Chloride 105 (98-107) mmol/L Carbon Dioxide 20 L (22-30) mmol/L Anion Gap 9 mmol/L BUN 7 (7-17) mg/dL Creatinine 0.48 L (0.52-1.04) mg/dL Est GFR (CKD-EPI)AfAm >90 (>60 ml/min/1.73 sqM) Est GFR (CKD-EPI)NonAf >90 (>60 ml/min/1.73 sqM) Glucose 124 H (74-99) mg/dL Calcium 9.3 (8.4-10.2) mg/dL Total Bilirubin 0.2 (0.2-1.3) mg/dL AST 25 (14-36) U/L ALT 20 (4-34) U/L Alkaline Phosphatase 73 (38-126) U/L Troponin I (0.000-0.034) ng/mL Total Protein 7.0 (6.3-8.2) g/dL Albumin 3.8 (3.5-5.0) g/dL Urine Color Urine Appearance (Clear) Urine pH (5.0-8.0) Ur Specific [place] (1.001-1.035) Urine Protein (Negative) Urine Glucose (UA) (Negative) Urine Ketones (Negative) Urine Blood (Negative) Urine Nitrite (Negative) Urine Bilirubin (Negative) Urine Urobilinogen (<2.0) mg/dL Ur Leukocyte Esterase (Negative) Urine RBC (0-5) /hpf Urine WBC (0-5) /hpf Ur Squamous Epith Cells (0-4) /hpf Urine Bacteria (None) /hpf Urine Mucus (None) /hpf 11/24/20 11/24/20 Range/Units 17:52 18:00 WBC (3.8-10.6) k/uL RBC (3.80-5.40) m/uL Hgb (11.4-16.0) gm/dL Hct (34.0-46.0) % MCV (80.0-100.0) fL MCH (25.0-35.0) pg MCHC (31.0-37.0) g/dL RDW (11.5-15.5) % Plt Count (150-450) k/uL MPV Neutrophils % % Lymphocytes % % Monocytes % % Eosinophils % % Basophils % % Neutrophils # (1.3-7.7) k/uL Lymphocytes # (1.0-4.8) k/uL Monocytes # (0-1.0) k/uL Eosinophils # (0-0.7) k/uL Basophils # (0-0.2) k/uL PT (9.0-12.0) sec INR (<1.2) APTT (22.0-30.0) sec Sodium (137-145) mmol/L Potassium (3.5-5.1) mmol/L Chloride (98-107) mmol/L Carbon Dioxide (22-30) mmol/L Anion Gap mmol/L BUN (7-17) mg/dL Creatinine (0.52-1.04) mg/dL Est GFR (CKD-EPI)AfAm (>60 ml/min/1.73 sqM) Est GFR (CKD-EPI)NonAf (>60 ml/min/1.73 sqM) Glucose (74-99) mg/dL Calcium (8.4-10.2) mg/dL Total Bilirubin (0.2-1.3) mg/dL AST (14-36) U/L ALT (4-34) U/L Alkaline Phosphatase (38-126) U/L Troponin I <0.012 (0.000-0.034) ng/mL Total Protein (6.3-8.2) g/dL Albumin (3.5-5.0) g/dL Urine Color Yellow Urine Appearance Cloudy H (Clear) Urine pH 6.0 (5.0-8.0) Ur Specific [place] 1.025 (1.001-1.035) Urine Protein 1+ H (Negative) Urine Glucose (UA) Negative (Negative) Urine Ketones 1+ H (Negative) Urine Blood Negative (Negative) Urine Nitrite Negative (Negative) Urine Bilirubin Negative (Negative) Urine Urobilinogen <2.0 (<2.0) mg/dL Ur Leukocyte Esterase Large H (Negative) Urine RBC 6 H (0-5) /hpf Urine WBC 35 H (0-5) /hpf Ur Squamous Epith Cells 30 H (0-4) /hpf Urine Bacteria Many H (None) /hpf Urine Mucus Many H (None) /hpf Disposition Clinical Impression: Arm paresthesia, left, Facial tingling, Tight chest Disposition: ADMITTED IP TO THIS HOSP Condition: Stable Is patient prescribed a controlled substance at d/c from ED?: No Referrals: Sera Jim MD [Primary Care Provider] - 1-2 days Time of Disposition: 18:46 Decision to Admit Reason: Admit from EC Decision Date: 11/24/20 Decision Time: 18:46
--- NOTE | 2020-11-24 17:27 | CT ---
EXAMINATION TYPE: CT brain wo con DATE OF EXAM: 11/24/2020 COMPARISON: None available. HISTORY: parathesias entire face CT DLP: 1041.4 mGycm. Automated Exposure Control for Dose Reduction was Utilized. TECHNIQUE: CT scan of the head is performed without contrast. FINDINGS: There is no acute intracranial hemorrhage, mass effect, or midline shift identified. The ventricles and sulci are within normal limits in size. The globes are intact and the visualized sin uses are clear. IMPRESSION: No acute intracranial hemorrhage, mass effect, or midline shift is seen.
[2020-11-24 18:14] LABS: Basophils # (A) 0.1 k/uL (0-0.2); Basophils % (A) 1 %; Eosinophils # (A) 0.1 k/uL (0-0.7); Eosinophils % (A) 2 %; HCT 38.4 % (34.0-46.0); Lymphocytes # (A) 2.6 k/uL (1.0-4.8); Lymphocytes % (A) 35 %; MCH 31.8 pg (25.0-35.0); MCHC 33.9 g/dL (31.0-37.0); MCV 93.7 fL (80.0-100.0); Mean Platelet Volume 6.8; Monocytes # (A) 0.4 k/uL (0-1.0); Monocytes % (A) 5 %; Neutrophils # (A) 4.2 k/uL (1.3-7.7); Neutrophils % (A) 56 %; Platelet Count 315 k/uL (150-450); RDW 13.3 % (11.5-15.5); WBC 7.4 k/uL (3.8-10.6)
[2020-11-24 18:23] LABS: ALT 20 U/L (4-34); AST 25 U/L (14-36); African American GFR (CKD) >90 (>60 ml/min/1.73 sqM); Albumin 3.8 g/dL (3.5-5.0); Alkaline Phosphatase 73 U/L (38-126); Anion Gap 9 mmol/L; Blood Urea Nitrogen 7 mg/dL (7-17); Calcium 9.3 mg/dL (8.4-10.2); Carbon Dioxide 20 mmol/L (22-30); Chloride 105 mmol/L (98-107); Glucose 124 mg/dL (74-99); Non-African American GFR(CKD) >90 (>60 ml/min/1.73 sqM); Sodium 134 mmol/L (137-145); Total Bilirubin 0.2 mg/dL (0.2-1.3)
[2020-11-24] MEDS ORDERED: NALOXONE 0.4 MG/ML 1 ML VIAL IV PRN (18:25)
[2020-11-24 18:36] LABS: Appearance,Urine Cloudy (Clear); Bacteria,Urine Many /hpf; Bilirubin,Urine Negative (Negative); Blood,Urine Negative (Negative); Color,Urine Yellow; Glucose,Urine (UA) Negative (Negative); Ketones,Urine 1+ (Negative); Leukocyte Esterase,Urine Large (Negative); Mucus,Urine Many /hpf; Nitrite,Urine Negative (Negative); Protein,Urine 1+ (Negative); RBC,Urine 6 /hpf (0-5); Specific Gravity,Urine 1.025 (1.001-1.035); Squamous Epithelial Cell,Urine 30 /hpf (0-4); Urobilinogen,Urine <2.0 mg/dL (<2.0); WBC,Urine 35 /hpf (0-5)
[2020-11-24 18:39] LABS: INR 0.9 (<1.2); Prothrombin Time 9.5 sec (9.0-12.0)
[2020-11-24 18:45] LABS: Partial Thromboplastin Time 21.8 sec (22.0-30.0)
[2020-11-24] MEDS ORDERED: CEPHALEXIN 500 MG CAP PO STA (18:45)
--- NOTE | 2020-11-24 19:38 | US ---
EXAMINATION TYPE: US carotid duplex BILAT DATE OF EXAM: 11/24/2020 COMPARISON: CT Brain CLINICAL HISTORY: paraesthesias. Paresthesias per order. Facial and left arm numbness. Previous smoke r. EXAM MEASUREMENTS: RIGHT: Peak Systolic Velocity (PSV) cm/sec ----- Right CCA: 105.4 ----- Right ICA: 118.4 ----- Right ECA: 112.1 ICA/CCA ratio: 1.1 RIGHT: End Diastole cm/sec ----- Right CCA: 29.8 ----- Right ICA: 24.7 ----- Right ECA: 25.4 LEFT: Peak Systolic Velocity (PSV) cm/sec ----- Left CCA: 99.8 ----- Left ICA: 104.5 ----- Left ECA: 94.9 ICA/CCA ratio: 1.0 LEFT: End Diastole cm/sec ----- Left CCA: 31.0 ----- Left ICA: 34.0 ----- Left ECA: 17.9 VERTEBRALS (direction of flow): Right Vertebral: Antegrade Left Vertebral: Antegrade IMPRESSION: 1. No hemodynamically-significant stenosis in either internal carotid artery. 2. Normal antegrade flow in the bilateral vertebral arteries. Criteria for Assigning % of Stenosis / Diameter reduction (Estimation based on the indirect measurements of the internal carotid artery velocities (ICA PSV). 1. Normal (no stenosis)=ICA PSV < 125 cm/s: ratio < 2.0: ICA EDV<40 cm/s. 2. Less than 50% stenosis=ICA PSV < 125 cm/s: ratio < 2.0: ICA EDV<40 cm/s. 3. 50 to 69% stenosis=ICA PSV of 125 to 230 cm/s: ration 2.0 ? 4.0: ICA EDV 40-100 cm/s. 4. Greater than 70% stenosis to near occlusion= ICA PSV > 230 cm/s: ratio > 4.0: ICA EDV > 100 cm/s. 5. Near occlusion= ICA PSV velocities may be low or undetectable: variable ratio and ICA EDV. 6. Total occlusion=unable to detect flow.
[2020-11-24] MEDS ORDERED: ENOXAPARIN 40 MG/0.4 ML SYRINGE SQ SCH (21:47)
[2020-11-25 04:48] VITALS: RESP 16
[2020-11-25] MEDS ORDERED: ENOXAPARIN 80 MG/0.8 ML SYRINGE SQ SCH (09:00)
--- NOTE | 2020-11-25 10:15 | P.OBCN ---
History of Present Illness Consult date: 11/25/20 Requesting physician: Sera Jim Reason for consult: early problem Chief complaint: TIA symptoms History of present illness: Patient is a 30-year-old female well known to me from prior pregnancies. She has a history of deep vein thrombosis proxy 45 years ago shortly before first sa w her for . At that time she was referred to maternal medicine and started on anticoagulation therapy for the the as precaution. She has been on anticoagulations therapy each with Lovenox usually use until the last 4 weeks and then transferring her over to heparin for last few weeks. She's had no real significant problems other than that with the pregnancies but has remained high risk. With this she is also noted to have a positive Rh antibody screen for which maternal medicine has yet to evaluate her. Included with this TIA-like symptoms she continues to become more high risk for standpoint. Would recommend continuing the Lovenox as precaution. She does have an appointment with maternal medicine on Sunday. Would recommend a vitamin. Unless there is an acute issue with her blood pressure even blood pressures up to 149 systolic or up to 99 diastolic would be well tolerated in and as of the pulse pressure difference between the mother and the baby if blood pressures lowered to much sometimes they will become IUGR or have difficult time thriving in utero due to decrease in blood flow. This conservatively be addressed moving forward and unless again it is acute elevation and of significance concern blood pressure likely would be okay for in the short-term as it will also start to decrease in the next few weeks due to the . Again she hasn't point with maternal medicine on Sunday for which she will need to discuss all these factors and variables that continue to rise. In speaking with her today, she denies any symptoms. She relates that the paresthesias on her left arm started she was driving her car and then she began to have some facial tingling. She pulled o elian and symptoms resolved. She did then go home and a half and 2 more times lasting less than half hour each time so she was brought into the emergency room and evaluations have been done as above. I did review the report of the CAT scan other lab work and nothing grossly at this time stands up from my standpoint. I will defer to your medical and neurologic consultations. All the questions are answered for her at this time. We'll plan to continue very close observational care until she is stable for discharge. Past Medical History Past Medical History: Asthma, GERD/Reflux, Mitral Valve Prolapse (MVP), Pulmonary Embolus (PE) Additional Past Medical History / Comment(s): BLADDER INFECTIONS, PANCREATITIS, lung nodules and blood clot in lungs, liver mass, heart murmur, bronchitis history, DVT, IBS, CELIAC DISEASE. OBstetric history: 3 vaginal deliveries, covid 11/01/20, History of Any Multi-Drug Resistant Organisms: None Reported Past Surgical History: Appendectomy, Cholecystectomy, Hernia Repair Additional Past Surgical History / Comment(s): RT CALF MUCSLE REPAIRED AFTER LACERATION INURY, Past Anesthesia/Blood Transfusion Reactions: No Reported Reaction Past Psychological History: Anxiety Additional Psychological History / Comment(s): "long time ago" Smoking Status: Former smoker Past Alcohol Use History: None Reported Additional Past Alcohol Use History / Comment(s): STARTED SMOKING AT AGE 20 SMOKED 2-3 HELIO PER DAY QUIT 2010 Past Drug Use History: None Reported - Past Family History Father Family Medical History: COPD Additional Family Medical History / Comment(s): UNK, GASTROINTESTINAL PROBLEMS Mother Family Medical History: Thyroid Disorder Additional Family Medical History / Comment(s): MURMUR, sarcoidosis, Medications and Allergies Home Medications Medication Instructions Recorded Confirmed Type +Low Iron 27mg-1mg 1 tab PO W/SUPPER 08/06/20 11/24/20 History Enoxaparin [Lovenox] 40 mg SQ HS 11/22/20 11/24/20 History Albuterol Sulfate [Proair Hfa] 2 puff INHALATION RT-Q6H PRN 11/24/20 11/24/20 History Budesonide/Formoterol Fumarate 2 puff INHALATION RT-BID 11/24/20 11/24/20 History [Symbicort 160-4.5 Mcg Inhaler] Allergies Allergy/AdvReac Type Severity Reaction Status Date / Time Penicillins Allergy Unknown Verified 11/24/20 18:14 Childhood gluten AdvReac Nausea & Verified 11/24/20 18:14 Vomiting lactose AdvReac Nausea & Verified 11/24/20 18:14 Vomiting Exam Osteopathic Statement: *. No significant issues noted on an osteopathic structural exam other than those noted in the History and Physical/Consult. Vital Signs Temp Pulse Pulse Resp BP BP Pulse Ox 11/25/20 09:10 99 F 92 16 135/80 99 11/25/20 04:00 98.8 F 86 16 132/80 99 11/25/20 02:00 97 18 11/24/20 23:46 98.7 F 97 18 138/91 100 11/24/20 21:29 131/82 11/24/20 20:40 112 H 18 11/24/20 20:39 98.9 F 103 H 18 149/103 97 11/24/20 19:49 98.2 F 96 18 135/91 99 11/24/20 18:00 101 H 18 136/94 100 11/24/20 16:57 95 18 148/85 99 11/24/20 16:27 99.2 F 130 H 18 147/85 100 Intake and Output 11/24/20 11/25/20 11/25/20 22:59 06:59 14:59 Intake Total 540 Balance 540 Intake: Oral 540 Other: Voiding Method Toilet Toilet # Voids 1 2 Weight 85.729 kg 82.3 kg - OBG Physical Exam Breast: both: normal (no masses) Abdomen: bowel sounds normal, no diffuse tenderness, no bruit present, no guarding noted, no hepatomegaly, no splenomegaly, no mass Vulva: both: normal Vagina: normal moisture, no discharge Cervix: no lesion, no discharge Uterus: normal size, normal contour Adnexa: both: normal Anus/Rectum: normal perianal skin, no rectal mass, no hemorrhoids, heme negative Results Result Diagrams: 11/24/20 17:52 11/24/20 17:52 Abnormal Lab Results - Last 24 Hours (Table) 11/24/20 11/24/20 11/24/20 Range/Units 17:52 17:52 18:00 APTT 21.8 L (22.0-30.0) sec Sodium 134 L (137-145) mmol/L Carbon Dioxide 20 L (22-30) mmol/L Creatinine 0.48 L (0.52-1.04) mg/dL Glucose 124 H (74-99) mg/dL Urine Appearance Cloudy H (Clear) Urine Protein 1+ H (Negative) Urine Ketones 1+ H (Negative) Ur Leukocyte Esterase Large H (Negative) Urine RBC 6 H (0-5) /hpf Urine WBC 35 H (0-5) /hpf Ur Squamous Epith Cells 30 H (0-4) /hpf Urine Bacteria Many H (None) /hpf Urine Mucus Many H (None) /hpf
--- NOTE | 2020-11-25 11:00 | ECHOF ---
Referral Reason:chronic dyspnea since covid, MEASUREMENTS -------- HEIGHT: 167.6 cm WEIGHT: 82.1 kg BP: 132/80 RVIDd: 2.6 cm (< 3.3) IVSd: 1.2 cm (0.6 - 1.1) LVIDd: 3.8 cm (3.9 - 5.3) LVPWd: 1.4 cm (0.6 - 1.1) IVSs: 1.5 cm LVIDs: 2.6 cm LVPWs: 1.8 cm LAESV Index (A-L): 22.69 ml/m Ao Diam: 2.9 cm (2.0 - 3.7) AV Cusp: 2.2 cm (1.5 - 2.6) LA Diam: 2.7 cm (2.7 - 3.8) MV EXCURSION: 13.405 mm (> 18.000) MV EF SLOPE: 51 mm/s (70 - 150) EPSS: 0.6 cm MV E Aki: 0.79 m/s MV DecT: 176 ms MV A Aki: 0.64 m/s MV E/A Ratio: 1.24 RAP: 5.00 mmHg RVSP: 32.12 mmHg FINDINGS -------- Sinus rhythm. This was a technically adequate study. The left ventricular size is normal. There is mild concentric left ventricular hypertrophy. Overa ll left ventricular systolic function is normal with, an EF between 55 - 60 %. The right ventricle is normal in size. Normal LA size by volume 22+/-6 ml/m2. The right atrial size is normal. Interatrial and interventricular septum intact. The aortic valve is trileaflet and appears structurally normal. There is no evidence of aortic regu rgitation. There is no evidence of aortic stenosis. There is trace to mild mitral regurgitation. Mild tricuspid regurgitation present. There is no evidence of pulmonary hypertension. The right v entricular systolic pressure, as measured by Doppler, is 32.12mmHg. There is no pulmonic regurgitation present. The aortic root size is normal. Normal inferior vena cava with normal inspiratory collapse consistent with estimated right atrial pre ssure of 5 mmHg. There is no pericardial effusion. CONCLUSIONS -------- 1. The left ventricular size is normal. 2. There is mild concentric left ventricular hypertrophy. 3. Overall left ventricular systolic function is normal with, an EF between 55 - 60 %. 4. There is trace to mild mitral regurgitation. 5. Mild tricuspid regurgitation present. 6. There is no evidence of pulmonary hypertension. 7. The right ventricular systolic pressure, as measured by Doppler, is 32.12mmHg. [employer] W[employer] FINISHER: Ramya Wilder RDCS
--- NOTE | 2020-11-25 11:35 | P.HPIM ---
History of Present Illness H&P Date: 11/25/20 Chief Complaint: Facial and hand numbness HISTORY AND PHYSICAL AND DISCHARGE SUMMARY: HISTORY OF PRESENT ILLNESS This is a 30-year-old black female patient of Dr. Jim with history of pulmonary embolism diagnosed in 2014 and completed course of Coumadin and had previous workup with Dr. Moore. History of lung nodules, asthma, mitral regurgitation, IBS. Patient is currently 14 weeks and also delivered a baby 7 months ago. She follows with Dr. Schmitz as well as a high risk physician for which she has an appointment next Sunday. She states she has had several episodes where her face will start feeling tingling on both sides and then she develops a weird tingling sensation in the left hand. This occurred yesterday while she was driving and lasted for about 30 minutes. She went and picked up her kids and took them home. She also picked up a blood pressure cuff and her blood pressure readings at home were 140/102 and 139/99 and heart rate was 115. She states her blood pressure normally runs 120/80. She had 2 more episodes. The last one lasted a longer time.. She denies having any loss of vi gregoria. No confusion, no change in speech. No dysphagia. She also gives history that she was diagnosed in October with Coban 19 and has recovered but occasionally has shortness of breath with activity. 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 She also states for the past 2-3 weeks and feels that her legs are going to give out on her and it happens more so at nighttime. Patient denies having any nausea or vomiting. She states she has chronic diarrhea from celiac disease. She also complains of a rash to her chest and neck face. Patient denies any symptoms at the time of this evaluation. Patient came into [facility] emergency center for evaluation. She was found to be afebrile, initial heart rate 130, blood pressure 147/85 and pulse ox 100% on room air. CBC was unremarkable. Creatinine 0.48. Blood sugar 124. Sodium 134, potassium 4.0. CO2 20. Liver function tests are normal. Troponin negative. Urinalysis was cloudy with leukoesterase large but also had squamous cells 30. Ultrasound of the carotids revealed no hemodynamically significant carotid stenosis. CAT scan of the brain showed no acute intracranial hemorrhage, mass effect or midline shift. Echocardiogram reveals EF of 55-60% with trace to mild mitral regurgitation, mild tricuspid regurgitation, no pulmonary hypertension. Consult placed with neurology and ICE PULLER, patient admitted to the cardiac stepdown unit. We have increased her Lovenox to 80 mg daily which is equivalent to 1 mg/kg. Patient has been seen by Dr. De La Garza with recommendations for vitamin continuing Lovenox as precaution, follow-up with maternal medicine on Sunday as scheduled. Parish evans has been seen by neurology with recommendations to continue increased dose of Lovenox, TSH and hemoglobin A1c, hematology for type of hypercoagulopathy state. Patient has been cleared for discharge home. REVIEW OF SYSTEMS Constitutional: No fever, no chills, no night sweats. No weight change. No weakness, fatigue or lethargy. No daytime sleepiness. EENT: No headache. No blurred vision or double vision, no loss of vision. No loss of Hearing, no ringing in the ears, no dizziness. No nasal drainage or congestion. No epistaxis. No sore throat. Lungs: No shortness of breath, cough, no sputum production. No wheezing. Cardiovascular: No chest pain, no lower extremity edema. No palpitations. No paroxysmal nocturnal dyspnea. No orthopnea. No lightheadedness or dizziness. No syncopal episodes. Abdominal: No abdominal pain. No nausea, vomiting. No diarrhea. No constipation. No bloody or tarry stools.. No loss of appetite. Genitourinary: No dysuria, increased frequency, urgency. No urinary retention. Musculoskeletal: No myalgias. No muscle weakness, no gait dysfunction, no frequent falls. No back pain. No neck pain. Integumentary: No wounds, no lesions. No rash or pruritus. No unusual bruising. No change in hair or nails. Neurologic: No aphasia. No facial droop. No change in mentation. No head injury. No headache. No paralysis. Facial tingling, left hand tingling. Psychiatric: No depression. No anxiety. No mood swings. Endocrine: No abnormal blood sugars. No weight change. No excessive sweating or thirst. No cold intolerance. SOCIAL HISTORY The patient smoked cigarettes for a short period of time. No marijuana, was a drug use or alcohol use. She currently works at the [employer]. FAMILY HISTORY Mother is alive at age 55 with history of coronary artery disease and autoimmune disorder. Father is alive at age 60 with history of alcohol abuse and diabetes. Patient has a total of 6 siblings with no autoimmune disorders. Patient has 3 children with no major medical problems.. PHYSICAL EXAMINATION Gen: This is a a 30 year old black female. She is resting in bed appears to be comfortable in no acute distress. HEENT: Head is atraumatic, normocephalic. Pupils equal, round. Sclerae is anicteric. NECK: Supple. No JVD. No lymphadenopathy. No thyromegaly. LUNGS: Clear to auscultation. No wheezes or rhonchi. No intercostal retract ions. HEART: Regular rate and rhythm. No murmur. ABDOMEN: Soft. Bowel sounds are present. No masses. No tenderness. EXTREMITIES: No pedal edema. No calf tenderness. Dorsalis pedis +2 bilaterally. NEUROLOGICAL: Patient is awake, alert and oriented x3. Cranial nerves 2 through 12 are grossly intact. ASSESSMENT AND PLAN 1. Facial and left hand tingling. Consult with Dr. Leon. 2. . Consult with ICE PULLER appreciated. vitamins started. Recommend continuing Lovenox and follow-up with maternal medicine appointment next Sunday. 3. Lower extremity weak sensation. Consult with neurology. 4. History of pulmonary embolism in 2014 with history of hypercoagulopathy state. Patient is continued on Lovenox 80 mg subcu daily. Patient will be discharged on Lovenox 80 mg subcu daily and this can be adjusted at her appointment on Sunday with maternal medicine. 5. Lung nodules, stable. 6. IBS, stable. Patient lay's as an observation status. DISCHARGE PLAN Home. Impression and plan of care have been directed as dictated by the signing physician. Sania Yu nurse practitioner acting as scribe for signing physician. Past Medical History Past Medical History: Asthma, GERD/Reflux, Mitral Valve Prolapse (MVP), Pulmonary Embolus (PE) Additional Past Medical History / Comment(s): BLADDER INFECTIONS, PANCREATITIS, lung nodules and blood clot in lungs, liver mass, heart murmur, bronchitis history, DVT, IBS, CELIAC DISEASE. OBstetric history: 3 vaginal deliveries, covid 11/01/20, History of Any Multi-Drug Resistant Organisms: None Reported Past Surgical History: Appendectomy, Cholecystectomy, Hernia Repair Additional Past Surgical History / Comment(s): RT CALF MUCSLE REPAIRED AFTER LACERATION INURY, Past Anesthesia/Blood Transfusion Reactions: No Reported Reaction Past Psychological History: Anxiety Additional Psychological History / Comment(s): "long time ago" Smoking Status: Former smoker Past Alcohol Use History: None Reported Additional Past Alcohol Use History / Comment(s): STARTED SMOKING AT AGE 20 SMOKED 2-3 HELIO PER DAY QUIT 2010 Past Drug Use History: None Reported - Past Family History Father Family Medical History: COPD Additional Family Medical History / Comment(s): UNK, GASTROINTESTINAL PROBLEMS Mother Family Medical History: Thyroid Disorder Additional Family Medical History / Comment(s): MURMUR, sarcoidosis, Medications and Allergies Home Medications Medication Instructions Recorded Confirmed Type +Low Iron 27mg-1mg 1 tab PO W/SUPPER 08/06/20 11/24/20 History Albuterol Sulfate [Proair Hfa] 2 puff INHALATION RT-Q6H PRN 11/24/20 11/24/20 History Budesonide/Formoterol Fumarate 2 puff INHALATION RT-BID 11/24/20 11/24/20 History [Symbicort 160-4.5 Mcg Inhaler] Enoxaparin [Lovenox] 80 mg SQ DAILY #30 syringe 11/25/20 Rx Allergies Allergy/AdvReac Type Severity Reaction Status Date / Time Penicillins Allergy Unknown Verified 11/24/20 18:14 Childhood gluten AdvReac Nausea & Verified 11/24/20 18:14 Vomiting lactose AdvReac Nausea & Verified 11/24/20 18:14 Vomiting Physical Exam Vitals: Vital Signs Temp Pulse Pulse Resp BP BP Pulse Ox 11/25/20 04:00 98.8 F 86 16 132/80 99 11/25/20 02:00 97 18 11/24/20 23:46 98.7 F 97 18 138/91 100 11/24/20 21:29 131/82 11/24/20 20:40 112 H 18 11/24/20 20:39 98.9 F 103 H 18 149/103 97 11/24/20 19:49 98.2 F 96 18 135/91 99 11/24/20 18:00 101 H 18 136/94 100 11/24/20 16:57 95 18 148/85 99 11/24/20 16:27 99.2 F 130 H 18 147/85 100 Intake and Output 11/24/20 11/25/20 11/25/20 22:59 06:59 14:59 Intake Total 540 Balance 540 Intake: Oral 540 Other: Voiding Method Toilet Toilet # Voids 1 2 Weight 85.729 kg 82.3 kg Results CBC & Chem 7: 11/24/20 17:52 11/24/20 17:52 Labs: Abnormal Lab Results - Last 24 Hours (Table) 11/24/20 11/24/20 11/24/20 Range/Units 17:52 17:52 18:00 APTT 21.8 L (22.0-30.0) sec Sodium 134 L (137-145) mmol/L Carbon Dioxide 20 L (22-30) mmol/L Creatinine 0.48 L (0.52-1.04) mg/dL Glucose 124 H (74-99) mg/dL Urine Appearance Cloudy H (Clear) Urine Protein 1+ H (Negative) Urine Ketones 1+ H (Negative) Ur Leukocyte Esterase Large H (Negative) Urine RBC 6 H (0-5) /hpf Urine WBC 35 H (0-5) /hpf Ur Squamous Epith Cells 30 H (0-4) /hpf Urine Bacteria Many H (None) /hpf Urine Mucus Many H (None) /hpf Thrombosis Risk Factor Assmnt - Choose All That Apply Any of the Below Risk Factors Present?: No Other Risk Factors: No Other congenital or acquired thrombophilia - If yes, enter type in comment: No Thrombosis Risk Factor Assessment Level: Very Low Risk
[2020-11-25 11:47] LABS: Appearance,Urine Clear (Clear); Bacteria,Urine Rare /hpf; Bilirubin,Urine Negative (Negative); Blood,Urine Negative (Negative); Color,Urine Yellow; Glucose,Urine (UA) Negative (Negative); Ketones,Urine Trace (Negative); Leukocyte Esterase,Urine Moderate (Negative); Mucus,Urine Occasional /hpf; Nitrite,Urine Negative (Negative); PH, Urine 6.5 (5.0-8.0); Protein,Urine Trace (Negative); RBC,Urine <1 /hpf (0-5); Specific Gravity,Urine 1.024 (1.001-1.035); Squamous Epithelial Cell,Urine 1 /hpf (0-4); Urobilinogen,Urine <2.0 mg/dL (<2.0); WBC,Urine 2 /hpf (0-5)
[2020-11-25 12:22] VITALS: BP 142/84; PULSE 90; TEMP 99.2
--- NOTE | 2020-11-25 14:21 | P.CNNES ---
History of Present Illness Consult date: 11/25/20 Requesting physician: Ynes Hickey Reason for Consult: , paresthesias. History of Present Illness: Patient is a 30-year-old female, who is 14 weeks . She has history of blood clotting disorder with history of PEs 4 years ago. Patient however does not take any anticoagulants, unless she is , then she takes Lovenox 40 mg daily. Patient states that yesterday at around 12:17 PM, she was driving, with her children, when she suddenly felt numbness of the face and lips and nose. Even when she touched her lips, it felt numb. Later it extended to involve the lower half facial region. She also noticed tingling and we are feeling of the left hand. It did not involve the arm, or the leg. Patient states that she spoke to someone, and felt her speech was good, there was no facial droopiness, no problem with the vision, weakness or balance issues. The symptoms lasted for 30 minutes and then went away. However they reappeared, now occurred off and on for another 20 minutes. Patient had COVID-19 about a month ago and has been having chest pain off and on since then. She feels something is restricting her breathing, but no chest pain. On arrival her blood pressure was 147/85, pulse rate 130, temperature 99.2 CT head showed no acute process. Patient had a 2-D echo on 11/25/2020, which revealed normal left-ventricular size. Mild concentric LVH. EF is 55-60%. Trace to mild MR. Mild tricuspid regurgitation. EKG shows sinus tachycardia otherwise normal EKG. Carotid Doppler showed no hemodynamically significant stenosis in either ICA. Normal antegrade flow in both vertebral arteries. CBC is normal. PT/PTT normal. Sodium 134 potassium 4.0, normal renal functions. H epatic panel normal, UA showed large amount of leukocyte Estrace and 35 WBC. Patient denies any headache at this time. Patient says that when she bends down, she feels slight pressure in the head. Patient denies any history of tobacco alcohol. She does not have hypertension, but lately has been running slightly elevated blood pressure. Her most recent blood pressure is 142/84. Review of Systems As above in details. Patient states that she recently had suffered from "wait infection. She still feels some tightness in the chest, some shortness of breath. Denies any abdominal pain nausea vomiting diarrhea. Denies any double vision, hoarseness. Past Medical History Past Medical History: Asthma, GERD/Reflux, Mitral Valve Prolapse (MVP), Pulmonary Embolus (PE) Additional Past Medical History / Comment(s): BLADDER INFECTIONS, PANCREATITIS, lung nodules and blood clot in lungs, liver mass, heart murmur, bronchitis history, DVT, IBS, CELIAC DISEASE. OBstetric history: 3 vaginal deliveries, c ovid 11/01/20, History of Any Multi-Drug Resistant Organisms: None Reported Past Surgical History: Appendectomy, Cholecystectomy, Hernia Repair Additional Past Surgical History / Comment(s): RT CALF MUCSLE REPAIRED AFTER LACERATION INURY, Past Anesthesia/Blood Transfusion Reactions: No Reported Reaction Past Psychological History: Anxiety Additional Psychological History / Comment(s): "long time ago" Smoking Status: Former smoker Past Alcohol Use History: None Reported Additional Past Alcohol Use History / Comment(s): STARTED SMOKING AT AGE 20 SMOKED 2-3 HELIO PER DAY QUIT 2010 Past Drug Use History: None Reported - Past Family History Father Family Medical History: COPD Additional Family Medical History / Comment(s): UNK, GASTROINTESTINAL PROBLEMS Mother Family Medical History: Thyroid Disorder Additional Family Medical History / Comment(s): MURMUR, sarcoidosis, Medications and Allergies Home Medications Medication Instructions Recorded Confirmed Type +Low Iron 27mg-1mg 1 tab PO W/SUPPER 08/06/20 11/24/20 History Enoxaparin [Lovenox] 40 mg SQ HS 11/22/20 11/24/20 History Albuterol Sulfate [Proair Hfa] 2 puff INHALATION RT-Q6H PRN 11/24/20 11/24/20 History Budesonide/Formoterol Fumarate 2 puff INHALATION RT-BID 11/24/20 11/24/20 H istory [Symbicort 160-4.5 Mcg Inhaler] Allergies Allergy/AdvReac Type Severity Reaction Status Date / Time Penicillins Allergy Unknown Verified 11/24/20 18:14 Childhood gluten AdvReac Nausea & Verified 11/24/20 18:14 Vomiting lactose AdvReac Nausea & Verified 11/24/20 18:14 Vomiting Physical Examination - Vital Signs Vital Signs: Vital Signs Temp Pulse Pulse Resp BP BP Pulse Ox 11/25/20 09:10 99 F 92 16 135/80 99 01/14/21 04:00 98.8 F 86 16 132/80 99 11/25/20 02:00 97 18 11/24/20 23:46 98.7 F 97 18 138/91 100 11/24/20 21:29 131/82 11/24/20 20:40 112 H 18 11/24/20 20:39 98.9 F 103 H 18 149/103 97 11/24/20 19:49 98.2 F 96 18 135/91 99 11/24/20 18:00 101 H 18 136/94 100 11/24/20 16:57 95 18 148/85 99 11/24/20 16:27 99.2 F 130 H 18 147/85 100 Intake and Output 11/24/20 11/25/20 11/25/20 22:59 06:59 14:59 Intake Total 540 Balance 540 Intake: Oral 540 Other: Voiding Method Toilet Toilet Toilet # Voids 1 2 Weight 85.729 kg 82.3 kg On examination patient is a young Afro-J[place] female, very pleasant in no acute distress. Patient is alert awake oriented to time place and person. Speech and language functions are normal. Attention, concentration and fund of knowledge is adequate. On cranial nerve examination pupils are round and reacting to light, visual cleary are full on confrontation, extraocular muscles are intact with no nystagmus. Face is symmetric, tongue protrudes to the midline. Palatal elevation and sensation normal. Facial sensation is normal. Hearing and shoulder shrug normal. On muscle strength testing there is no pronator drift and the strength is normal in arms and legs distally and proximally. Reflexes symmetric and plantars downgoing. Sensory touch is equal. No ataxia for [id number] testing, tone and bulk of muscles normal. Gait deferred. There is no obvious bruit, S1 and S2 audible abdomen soft nontender, chest is clear. No peripheral edema. Results - Laboratory Findings CBC and BMP: 11/24/20 17:52 11/24/20 17:52 Abnormal Lab Findings: Abnormal Labs 11/24/20 11/24/20 11/24/20 17:52 17:52 18:00 APTT 21.8 L Sodium 134 L Carbon Dioxide 20 L Creatinine 0.48 L Glucose 124 H Urine Appearance Cloudy H Urine Protein 1+ H Urine Ketones 1+ H Ur Leukocyte Esterase Large H Urine RBC 6 H Urine WBC 35 H Ur Squamous Epith Cells 30 H Urine Bacteria Many H Urine Mucus Many H Assessment and Plan Assessment: * Recurrent transient perioral and left hand numbness, lasting for 20-30 minutes. Rule out TIA. At present her symptoms have completely resolved. * History of hypercoagulable state with PE in the past * 14 week gestation * Hypertension * Left-ventricular hypertrophy (mild) noted on echo suggestive of hypertension. Plan: * Patient was on Lovenox 40 mg daily. The dose has been increased to 80 mg daily. Hopefully it will prevent further events. Patient usually continues Lovenox through her until 6 weeks ports . * Suggest hematology consultation to identify the type of hypercoagulable state. * Patient's blood pressure has been running high. Patient is also . Would defer to IM/SURGICAL DRESSING MAKER, if medications indicated. * Patient's lipid panel from 08/07/2020 showed cholesterol 161, LDL 97, HDL 37 and triglycerides 133. * Telemetry monitoring showing sinus rhythm with sinus tachycardia. We will check TSH and hemoglobin A1c.
[2020-11-25] MEDS ORDERED: ENOXAPARIN 40 MG/0.4 ML SYRINGE SQ SCH (21:00)
[2020-11-26 01:26] LABS: Hemoglobin A1C 5.8 % (4.0-6.0)
[2020-11-26] MEDS ORDERED: PRENATAL VIT-IRON-FOLIC ACID 1 EACH CAP PO SCH (09:00)
== END 2020-11-25 15:27 | disposition home or self-care (01) ==
LOC: EC 16:20 → 3SCARD 18:17 → INTOOBSV 18:17 → UNDOADMOB 19:17 → 3SCARD 19:17 → UNDODISIN 11-25 15:27
PROVIDERS: ADMIT Internal Medicine Geriatric Medicine; ATTEND Internal Medicine Geriatric Medicine
DX: O99.352 Diseases of the nervous system complicating pregnancy, second trimester (principal); Z3A.14 14 weeks gestation of pregnancy; R20.2 Paresthesia of skin; Z79.02 Long term (current) use of antithrombotics/antiplatelets; J45.909 Unspecified asthma, uncomplicated; K21.9 Gastro-esophageal reflux disease without esophagitis; Z86.711 Personal history of pulmonary embolism; Z87.19 Personal history of other diseases of the digestive system; Z86.16 Personal history of COVID-19; I34.0 Nonrheumatic mitral (valve) insufficiency; R01.1 Cardiac murmur, unspecified; Z87.09 Personal history of other diseases of the respiratory system; K58.9 Irritable bowel syndrome, unspecified; Z87.448 Personal history of other diseases of urinary system; Z90.49 Acquired absence of other specified parts of digestive tract; Z98.890 Other specified postprocedural states; Z90.89 Acquired absence of other organs; F41.9 Anxiety disorder, unspecified; Z87.891 Personal history of nicotine dependence; Z82.5 Family history of asthma and other chronic lower respiratory diseases; Z83.79 Family history of other diseases of the digestive system; Z83.49 Family history of other endocrine, nutritional and metabolic diseases; Z79.51 Long term (current) use of inhaled steroids; Z79.899 Other long term (current) drug therapy; Z91.02 Food additives allergy status; Z91.011 Allergy to milk products; I51.7 Cardiomegaly
CPT/HCPCS: 96372 ×2; 99285; 36415; 93005; 93306; 80053; 84443; 83735; 84484; 85025; 85610; 85730; 81001 ×2; 83036; 76801; 93880; 70450; G0378 ×2; J2001; J1650; J0696

== ENCOUNTER → 2021-01-27 | Outpatient (CLI) | payer OTHER ==
[2021-01-28 03:08] LABS: Gliadin AB IgA, Deaminated NEGATIVE (NEGATIVE); Gliadin AB IgA, Unit 0.8 U/mL; Gliadin AB IgG, Deaminated NEGATIVE (NEGATIVE)
== END | disposition home or self-care (01) ==
LOC: LABWHC1 12:00
PROVIDERS: ATTEND Nurse Practitioner
DX: K52.9 Noninfective gastroenteritis and colitis, unspecified (principal)
CPT/HCPCS: 36415; 83516; 83993

== ENCOUNTER 2021-04-21 16:25 | Outpatient (CLI) | payer OTHER ==
[~2021-04-21 16:25] MED LIST changes: +LIDOCAINE (PF) 10 MG/ML 2 ML VIAL IM ONE; -cefTRIAXone 250 MG VIAL IM NR; +cefTRIAXone 250 MG VIAL IM ONE; +cefTRIAXone 250 MG VIAL IM STA
[2021-04-21 18:33] VITALS: BP 133/71; PULSE 98; RESP 16; TEMP 97.8
--- NOTE | 2021-04-21 20:23 | US ---
EXAMINATION TYPE: US OB limited DATE OF EXAM: 04/21/2021 COMPARISON: NONE CLINICAL HISTORY: ENIO. EXAM PERFORMED: Transabdominal (TA) GESTATIONAL AGE / DATING Physician Established: (34 weeks/3 days) EDC: 05-30-21 No growth performed on today?s study per ordering physician SURVEY ENIO: 14.9 cm Ultrasound evidence of premature rupture of membranes? No PRESENTATION: Vertex HEART RATE: 139 bpm IMPRESSION: ENIO examination.
== END 2021-04-21 18:20 | disposition home or self-care (01) ==
LOC: PROCWHC3 16:25 → FBPOP 16:25
PROVIDERS: ATTEND Obstetrics & Gynecology
DX: O60.03 Preterm labor without delivery, third trimester (principal); Z3A.34 34 weeks gestation of pregnancy; Z88.0 Allergy status to penicillin; Z91.011 Allergy to milk products
CPT/HCPCS: 59025; 76815; 84112

== ENCOUNTER 2021-04-27 14:27 | Outpatient (CLI) | payer OTHER ==
--- NOTE | 2021-04-27 15:27 | US ---
EXAMINATION TYPE: US OB BPP wo non-stress DATE OF EXAM: 04/27/2021 COMPARISON: 1989 CLINICAL HISTORY: decreased movement. EXAM PERFORMED: Transabdominal (TA) by technologist without physician in the room BPP PARAMETERS: PRESENTATION: Vertex HEART RATE: 147 bpm RHYTHM: Normal ENIO: 16.5 DIAPHRAGM IMAGED: Yes BPP SCORIN. Breathin (1 episode of breathing of 30 second duration in 30 minutes of scanning time) 2. Movement: 2 (at least 3 discrete body movements in 30 minutes) 3. Tone: 2 (1 episode of active flexion/extension of limb) 4. ENIO: 2 (ENIO index > 5cm) TOTAL SCORE: 8 / 8
[2021-04-27 16:45] VITALS: BP 127/76; PULSE 96; RESP 16; TEMP 98.3
== END 2021-04-27 16:30 | disposition home or self-care (01) ==
LOC: FBPOP 14:27
PROVIDERS: ATTEND Obstetrics & Gynecology
DX: O36.8130 Decreased fetal movements, third trimester, not applicable or unspecified (principal); Z3A.35 35 weeks gestation of pregnancy
CPT/HCPCS: 59025; 76819

== ENCOUNTER 2021-05-11 | Inpatient (IN) | payer OTHER | END 2021-05-13 18:15 | disposition home or self-care (01) | DRG 807 | PROVIDERS: ADMIT Obstetrics & Gynecology | PROC: 10E0XZZ Delivery of Products of Conception, External Approach (ICD-10-PCS; principal; 2021-05-11) | DX: O99.52 Diseases of the respiratory system complicating childbirth (principal); Z37.0 Single live birth; O22.33 Deep phlebothrombosis in pregnancy, third trimester; I34.1 Nonrheumatic mitral (valve) prolapse; J45.909 Unspecified asthma, uncomplicated; K90.0 Celiac disease; O99.62 Diseases of the digestive system complicating childbirth; Z3A.37 37 weeks gestation of pregnancy; Z79.51 Long term (current) use of inhaled steroids; Z82.5 Family history of asthma and other chronic lower respiratory diseases; Z86.711 Personal history of pulmonary embolism; Z86.718 Personal history of other venous thrombosis and embolism; Z87.891 Personal history of nicotine dependence | CPT/HCPCS: 83993; 85025; 85461; 85610; 85730; 86850; 86870; 86880; 86900; 86901; 86902; 88307 ==

== ENCOUNTER 2021-08-01 11:32 | Day surgery (SDC) | payer OTHER ==
[2021-07-28 11:19] VITALS: BMI 29.0
--- NOTE | 2021-07-29 12:29 | P.HPOB ---
History of Present Illness H&P Date: 07/29/21 Chief Complaint: Family planning Patient is a 31-year-old female 4 para 4 who has been high risk with all of her recent pregnancies due to history of DVT. She also has history of pulmonary embolism and prior noted liver mass. She was on Lovenox and heparin during the and has recently discontinued the heparin following 6 weeks of extended treatment. She has completed her family planning and desires permanent sterilization. She is scheduled for left scopic tubal occlusion with Filshie clips. Risks/benefits/alternatives to this procedure were reviewed with patient in detail and all questions were answered for her prior to proceeding to the operative room. Risks did include but were not limited to bleeding and infection, damage to bladder or bowel, vascular injuries, nerve injuries potential need for further surgery. Small risk of failure and this is designed be a permanent procedure. She is been counseled on alternatives to this for control but she is now completed her family planning and we will move forward with permanent sterilization. All questions were answered for her procedure was explained to her in detail and to her satisfaction Past Medical History Past Medical History: Asthma, GERD/Reflux, Mitral Valve Prolapse (MVP), Pulmonary Embolus (PE) Additional Past Medical History / Comment(s): BLADDER INFECTIONS, PANCREATITIS, lung nodules and blood clot in lungs, liver mass, heart murmur, bronchitis history, IBS, CELIAC DISEASE, covid 11/01/20, LEAKY- MITRAL VALVE HISTORY History of Any Multi-Drug Resistant Organisms: None Reported Past Surgical History: Appendectomy, Cholecystectomy, Hernia Repair Additional Past Surgical History / Comment(s): RT CALF MUCSLE REPAIRED AFTER LACERATION INURY, Past Anesthesia/Blood Transfusion Reactions: Previous Problems w/ Anesthesia, Family History of Problems w/ Anesthesia, Postoperative Nausea & Vomiting (PONV) Additional Past Anesthesia/Blood Transfusion Reaction / Comment(s): FAMILY HISTORY OF NAUSEA AND VOMITING Smoking Status: Former smoker - Past Family History Father Family Medical History: COPD Additional Family Medical History / Comment(s): , GASTROINTESTINAL PROBLEMS Mother Family Medical History: Thyroid Disorder Additional Family Medical History / Comment(s): MURMUR, sarcoidosis, Medications and Allergies Home Medications Medication Instructions Recorded Confirmed Type +Low Iron 27mg-1mg 1 tab PO W/SUPPER 08/06/20 07/28/21 History Budesonide/Formoterol Fumarate 2 puff INHALATION RT-BID PRN 11/24/20 07/28/21 History [Symbicort 160-4.5 Mcg Inhaler] Allergies Allergy/AdvReac Type Severity Reaction Status Date / Time Penicillins Allergy Unknown Verified 07/28/21 10:30 Childhood lactose AdvReac Nausea & Verified 07/28/21 10:30 Vomiting Exam Osteopathic Statement: *. No significant issues noted on an osteopathic structural exam other than those noted in the History and Physical/Consult. - OBG Physical Exam Breast: both: normal (no masses) Abdomen: bowel sounds normal, no diffuse tenderness, no bruit present, no guarding noted, no hepatomegaly, no splenomegaly, no mass Vulva: both: normal Vagina: normal moisture, no discharge Cervix: no lesion, no discharge Uterus: normal size, normal contour Adnexa: both: normal Anus/Rectum: normal perianal skin, no rectal mass, no hemorrhoids, heme negative
[~2021-08-01 11:32] MED LIST changes: +DEXAMETHASONE SOD PHOSPHATE 4 MG/ML 1 ML VIAL IV ONE; +LACTATED RINGERS 1,000 ML IV SCH; -LIDOCAINE (PF) 10 MG/ML 2 ML VIAL IM ONE; +MIDAZOLAM 2 MG/2 ML VIAL IV PRN; +Pre Op ABX Message 1 EACH MISC MISCELLANE ONE; +SCOPOLAMINE 1.5MG/72HR PATCH TRANSDERM ONE; -cefTRIAXone 250 MG VIAL IM ONE; -cefTRIAXone 250 MG VIAL IM STA
[2021-08-01] MEDS: ONDANSETRON 4 MG/2 ML VIAL IVP ONE ×2 (12:21→15:59)
[2021-08-01] MEDS ORDERED: PROPOFOL 10 MG/ML 20 ML VIAL IV ONE (12:30)
[2021-08-01] MEDS ORDERED: SUCCINYLCHOLINE CHLORIDE 100 MG/5 ML SYR IV ONE (12:30)
[2021-08-01] MEDS ORDERED: MIDAZOLAM 2 MG/2 ML VIAL ONE (12:30)
[2021-08-01] MEDS ORDERED: LIDOCAINE 1% INJ 10MG/ML (20 ML MDV) ONE (12:30)
[2021-08-01] MEDS ORDERED: fentaNYL (PF) 50 MCG/ML 2 ML AMP ONE (12:30)
[2021-08-01 12:35] LABS: HCT 36.6 % (34.0-46.0); HGB 12.1 gm/dL (11.4-16.0); MCH 30.1 pg (25.0-35.0); MCHC 33.2 g/dL (31.0-37.0); MCV 90.8 fL (80.0-100.0); Platelet Count 411 k/uL (150-450); RBC 4.03 m/uL (3.80-5.40); RDW 13.3 % (11.5-15.5); WBC 3.9 k/uL (3.8-10.6)
[2021-08-01] MEDS ORDERED: BUPIVACAINE (PF) 0.5% 30 ML VIAL SQ ONE (12:39)
--- NOTE | 2021-08-01 13:17 | P.OP ---
Date of Procedure: 08/01/21 Preoperative Diagnosis: Family planning Postoperative Diagnosis: Same with incidental perforation of the uterus Procedure(s) Performed: Laparoscopic tubal occlusion with Filshie clips Anesthesia: JOSEFA Surgeon: Connor De La Garza Estimated Blood Loss (ml): 15 IV fluids (ml): 500 Urine output (ml): 20 Pathology: none sent Condition: stable Disposition: same day Operative Findings: Incidental notation of fundal perforation normal tubes ovaries and uterus otherwise. Uterus is noted to be significantly boggy likely secondary to recent Description of Procedure: Patient was taken to the operating suite where a general anesthetic was found be adequate. She was prepped and draped in normal sterile fashion and placed in dorsal lithotomy position. Initially a speculum inserted in the vagina and the anterior lip of cervix identified and grasped with a Allis clamp. Uterus is then sounded and immediately it felt as if even with essentially no resistance her as a possible perforation. Uterine minutes later was then inserted without difficulty and gloves were changed. Attention was turned to abdominal portion procedure and 2 mL of quarter percent Marcaine was injected periumbilically. Through this injected anesthetic a 5 mm skin incision was made and through this incision, under direct visualization with an optical trocar and sleeve the camera was inserted. Once peritoneal placement was assured gas was left fully slick abdomen and a second port and sleeve were inserted through 8 mm skin incision 3 center liters above the pubic symphysis in the midline. Uterus was elevated and observations [place] noted. There was a perforation in the fundal region of the uterus. First the right sloping tube the left tube had a Filshie clip applied 2.5 cm from uterine cornu. No bleeding is noted in the mesosalpinx. Once this was completed manipulator was removed without difficulty and small amount of bleeding was noted from the perforation. He was monitored for approximately 10 minutes blood was suctioned free from the cul-de-sac. Very nominal amount of what floats there was already at least a few cc of blood in the cul-de-sac prior to initiation of the surgery. With the bleeding being scant a piece of Surgicel was placed over the perforation. It was continually monitored with no real bleeding through the material. Patient was then reversed from Trendelenburg and gas allowed to expel from the abdomen. 5 deep breaths were provided during this process. Incidents were then removed. 4-0 Vicryl used to close incision subcuticularly and the remaining 8 mL of quarter percent Marcaine was injected around these incisions. Sponge, lap, needle counts were all correct 2. Patient was then taken to the recovery room in stable and satisfactory condition. We'll plan to monitor for at least 2-3 hours post operatively and we will assess for discharge later this afternoon. Plan - Discharge Summary Discharge Rx Participant: Yes New Discharge Prescriptions: New Ibuprofen [Motrin] 600 mg PO Q6HR PRN #30 tab PRN Reason: Pain HYDROcodone/APAP 5-325MG [[place] 5-325] 1 tab PO Q4HR PRN #30 tab PRN Reason: Pain No Action +Low Iron 27mg-1mg 1 tab PO W/SUPPER RX: Budesonide/Formoterol Fumarate [Symbicort 160-4.5 Mcg Inhaler] 2 puff INHALATION RT-BID PRN PRN Reason: Shortness Of Breath Discharge Medication List +Low Iron 27mg-1mg 1 tab PO W/SUPPER 08/06/20 [History] RX: Budesonide/Formoterol Fumarate [Symbicort 160-4.5 Mcg Inhaler] 2 puff INHALATION RT-BID PRN 11/24/20 [History] HYDROcodone/APAP 5-325MG [[place] 5-325] 1 tab PO Q4HR PRN #30 tab 08/01/21 [Rx] Ibuprofen [Motrin] 600 mg PO Q6HR PRN #30 tab 08/01/21 [Rx] Follow up Appointment(s)/Referral(s): Connor De La Garza DO [Doctor of Osteopathic Medicine] - 1 Week Activity/Diet/Wound Care/Special Instructions: The lifting, limit stairs and driving, and pelvic rest. If any high temperatures, heavy bleeding, or severe pain call my office or [facility] emergency room. Should she have any significant lightheadedness dizziness or other signs or symptoms of hypovolemia or [facility] emergency room Discharge Disposition: HOME SELF-CARE
[2021-08-01] MEDS ORDERED: LACTATED RINGERS 1,000 ML IV ONE (13:22)
[2021-08-01 13:28] VITALS: TEMP 98.1
[2021-08-01] MEDS: HYDROmorphone 0.5 MG/0.5 ML SYRINGE IVP PRN ×2 (13:55→14:12)
[2021-08-01] MEDS ORDERED: KETOROLAC 15 MG/ML 1 ML VIAL ONE (15:16)
[2021-08-01] MEDS ORDERED: ONDANSETRON 4 MG/2 ML VIAL ONE (15:49)
--- NOTE | 2021-08-01 16:02 | P.PN ---
Progress Note - Text Progress Note Date: 08/01/21 I did visit Ms. Perez on 2 separate occasions afternoon approximately 3 hours and 4 hours postoperatively. She remained stable. She denies any signs or symptoms of hypovolemia. Her pulse is normal in her blood pressure if anything is slightly high with the 150/90 range. At this time and have a really excellent explanation for this but can plan to see her in a couple days in the office and recheck her blood pressure postoperatively. She is stable for discharge this time and voices no other significant complaints. We did discuss possibly stay in the hospital and if she would prefer week inserted to keep her as an observation patient tonight and verify dates as more stability but this time I don't have a specific reason to admit her with stable vital signs and no other signs or symptoms of hypovolemia.
[2021-08-01] MEDS ORDERED: LABETALOL SYRINGE 5 MG/ML IVP ONE (16:05)
[2021-08-01 16:20] VITALS: BP 146/83; PULSE 86; RESP 14
== END 2021-08-01 16:49 | disposition home or self-care (01) ==
LOC: OR 11:32
PROVIDERS: ATTEND Obstetrics & Gynecology
DX: Z30.9 Encounter for contraceptive management, unspecified (principal); R06.02 Shortness of breath; J45.909 Unspecified asthma, uncomplicated; F41.9 Anxiety disorder, unspecified; K21.9 Gastro-esophageal reflux disease without esophagitis; I34.1 Nonrheumatic mitral (valve) prolapse; R16.0 Hepatomegaly, not elsewhere classified; R91.1 Solitary pulmonary nodule; Z86.711 Personal history of pulmonary embolism
CPT/HCPCS: 58671; 81025; 85027; J2250; J1100; J2405; J2001; J3010; J1885; J0330; J2704; J1170

== ENCOUNTER 2021-08-03 08:16 | Emergency (ER) | payer OTHER ==
[2021-08-03 08:22] VITALS: RESP 18; TEMP 98.4
[2021-08-03] MEDS ORDERED: SODIUM CHLORIDE 0.9% 1,000 ML IV ONE (08:42)
--- NOTE | 2021-08-03 08:43 | ED ---
General Adult HPI - General Chief complaint: Shortness of Breath Stated complaint: SOB, lightheaded, dizzy, post surgery Time Seen by Provider: 08/03/21 08:20 Source: patient, RN notes reviewed, old records reviewed Mode of arrival: ambulatory Limitations: no limitations - History of Present Illness Initial comments: This is a 31-year-old female who presents emergency Department complaining of feeling lightheaded just generally weaker. Patient states she had a tubal ligation Sunday and since then she just isn't feeling at her baseline. Patient states today she felt a little lightheaded and she felt as though she didn't have strength she says this decreases strength seems a little more on the left than the right but it is bilateral. She also states both of her legs are generally just feeling a little weaker. Patient denies any fever chills. Patient denies any significant abdominal pain. Patient states she has no chest pain was takes a deep breath and she has a little sharp chest pain. Patient is not short of breath however - Related Data Home Medications Medication Instructions Recorded Confirmed +Low Iron 27mg-1mg 1 tab PO W/SUPPER 08/06/20 08/03/21 Budesonide/Formoterol Fumarate 2 puff INHALATION RT-BID PRN 11/24/20 08/03/21 [Symbicort 160-4.5 Mcg Inhaler] Acetaminophen [Tylenol] 1,500 mg PO Q8H PRN 08/03/21 08/03/21 Albuterol Inhaler [Ventolin Hfa 2 puff INHALATION RT-QID PRN 08/03/21 08/03/21 Inhaler] Previous Rx's Medication Instructions Recorded HYDROcodone/APAP 5-325MG [[place] 1 tab PO Q4HR PRN #30 tab 08/01/21 5-325] Ibuprofen [Motrin] 600 mg PO Q6HR PRN #30 tab 08/01/21 Allergies Allergy/AdvReac Type Severity Reaction Status Date / Time Penicillins Allergy Unknown Verified 08/03/21 09:28 Childhood lactose AdvReac Nausea & Verified 08/03/21 09:28 Vomiting Review of Systems ROS Statement: Those systems with pertinent positive or pertinent negative responses have been documented in the HPI. ROS Other: All systems not noted in ROS Statement are negative. Past Medical History Past Medical History: Asthma, GERD/Reflux, Mitral Valve Prolapse (MVP), Pulm onary Embolus (PE) Additional Past Medical History / Comment(s): BLADDER INFECTIONS, PANCREATITIS, lung nodules and blood clot in lungs, liver mass, heart murmur, bronchitis history, IBS, CELIAC DISEASE, covid 11/01/20, LEAKY- MITRAL VALVE HISTORY History of Any Multi-Drug Resistant Organisms: None Reported Past Surgical History: Appendectomy, Cholecystectomy, Hernia Repair, Tubal Ligation Additional Past Surgical History / Comment(s): RT CALF MUCSLE REPAIRED AFTER LACERATION INURY, Past Anesthesia/Blood Transfusion Reactions: Previous Problems w/ Anesthesia, Family History of Problems w/ Anesthesia, Postoperative Nausea & Vomiting (PONV) Additional Past Anesthesia/Blood Transfusion Reaction / Comment(s): FAMILY HISTORY OF NAUSEA AND VOMITING Past Psychological History: Anxiety Smoking Status: Former smoker Past Alcohol Use History: None Reported Past Drug Use History: None Reported - Past Family History Father Family Medical History: COPD Additional Family Medical History / Comment(s): , GASTROINTESTINAL PROBLEMS Mother Family Medical History: Thyroid Disorder Additional Family Medical History / Comment(s): MURMUR, sarcoidosis, General Exam - General Exam Comments Initial Comments: GENERAL: Patient is well-developed and well-nourished. Patient is nontoxic and well- hydrated and is in mild distress. ENT: Neck is soft and supple. No significant lymphadenopathy is noted. Oropharynx is clear. Moist mucous membranes. Neck has full range of motion without eliciting any pain. EYES: The sclera were anicteric and conjunctiva were pink and moist. Extraocular movements were intact and pupils were equal round and reactive to light. Eyelids were unremarkable. PULMONARY: Unlabored respirations. Good breath sounds bilaterally. No audible rales rhonchi or wheezing was noted. CARDIOVASCULAR: There is a regular rate and rhythm without any murmurs gallops or rubs. ABDOMEN: Soft and nontender with normal bowel sounds. SKIN: Skin is clear with no lesions or rashes and otherwise unremarkable. NEUROLOGIC: Patient is alert and oriented x3. Cranial nerves II through XII are grossly intact. Motor and sensory are also intact. Normal speech, volume and content. Symmetrical smile. MUSCULOSKELETAL: Normal extremities with adequate strength and full range of motion. LYMPHATICS: No significant lymphadenopathy is noted PSYCHIATRIC: Normal psychiatric evaluation. Limitations: no limitations Course Vital Signs 08/03/21 08/03/21 08/03/21 08:18 08:54 09:00 Temperature 98.4 F Pulse Rate 59 L 65 Pulse Rate [ 66 Sitting] Pulse Rate [ 73 Standing] Pulse Rate [ 58 L Supine] Respiratory 18 18 Rate Blood Pressure 147/89 119/84 Blood Pressure 117/82 [Sitting] Blood Pressure 119/84 [Standing] Blood Pressure 118/81 [laying] O2 Sat by Pulse 100 100 Oximetry Medical Decision Making - Medical Decision Making EKG shows normal sinus rhythm at 61 bpm MI interval 172 QRS is 84 Q-T intervals 416 QTC is 418. Patient's EKG shows no ST segment elevation or depression. Chest x-ray shows no acute abnormality. I will back into the room to reevaluate the patient she was feeling considerably better and wanted be discharged. - Lab Data Result diagrams: 08/03/21 08:48 08/03/21 09:11 Lab Results 08/03/21 08/03/21 08/03/21 Range/Units 08:48 08:48 08:48 WBC 3.2 L (3.8-10.6) k/uL RBC 4.02 (3.80-5.40) m/uL Hgb 12.1 (11.4-16.0) gm/dL Hct 36.6 (34.0-46.0) % MCV 91.0 (80.0-100.0) fL MCH 30.0 (25.0-35.0) pg MCHC 33.0 (31.0-37.0) g/dL RDW 13.5 (11.5-15.5) % Plt Count 394 (150-450) k/uL MPV 6.9 Neutrophils % 32 % Lymphocytes % 60 % Monocytes % 5 % Eosinophils % 2 % Basophils % 1 % Neutrophils # 1.0 L (1.3-7.7) k/uL Lymphocytes # 1.9 (1.0-4.8) k/uL Monocytes # 0.2 (0-1.0) k/uL Eosinophils # 0.1 (0-0.7) k/uL Basophils # 0.0 (0-0.2) k/uL Manual Slide Review Performed RBC Morphology Normal Sodium (137-145) mmol/L Potassium (3.5-5.1) mmol/L Chloride (98-107) mmol/L Carbon Dioxide (22-30) mmol/L Anion Gap mmol/L BUN (7-17) mg/dL Creatinine (0.52-1.04) mg/dL Est GFR (CKD-EPI)AfAm (>60 ml/min/1.73 sqM) Est GFR (CKD-EPI)NonAf (>60 ml/min/1.73 sqM) Glucose (74-99) mg/dL Calcium (8.4-10.2) mg/dL Total Bilirubin (0.2-1.3) mg/dL AST (14-36) U/L ALT (4-34) U/L Alkaline Phosphatase (38-126) U/L Total Protein (6.3-8.2) g/dL Albumin (3.5-5.0) g/dL Urine Color Yellow Urine Appearance Cloudy H (Clear) Urine pH 5.5 (5.0-8.0) Ur Specific [place] 1.031 (1.001-1.035) Urine Protein Trace H (Negative) Urine Glucose (UA) Negative (Negative) Urine Ketones Negative (Negative) Urine Blood Moderate H (Negative) Urine Nitrite Negative (Negative) Urine Bilirubin Negative (Negative) Urine Urobilinogen <2.0 (<2.0) mg/dL Ur Leukocyte Esterase Moderate H (Negative) Urine RBC 2 (0-5) /hpf Urine WBC 14 H (0-5) /hpf Ur Squamous Epith Cells 11 H (0-4) /hpf Urine Mucus Many H (None) /hpf Urine HCG, Qual (Not Detectd) Coronavirus (PCR) Not Detected (Not Detectd) 08/03/21 08/03/21 Range/Units 09:11 09:11 WBC (3.8-10.6) k/uL RBC (3.80-5.40) m/uL Hgb (11.4-16.0) gm/dL Hct (34.0-46.0) % MCV (80.0-100.0) fL MCH (25.0-35.0) pg MCHC (31.0-37.0) g/dL RDW (11.5-15.5) % Plt Count (150-450) k/uL MPV Neutrophils % % Lymphocytes % % Monocytes % % Eosinophils % % Basophils % % Neutrophils # (1.3-7.7) k/uL Lymphocytes # (1.0-4.8) k/uL Monocytes # (0-1.0) k/uL Eosinophils # (0-0.7) k/uL Basophils # (0-0.2) k/uL Manual Slide Review RBC Morphology Sodium 139 (137-145) mmol/L Potassium 4.2 (3.5-5.1) mmol/L Chloride 107 (98-107) mmol/L Carbon Dioxide 23 (22-30) mmol/L Anion Gap 9 mmol/L BUN 13 (7-17) mg/dL Creatinine 0.64 (0.52-1.04) mg/dL Est GFR (CKD-EPI)AfAm >90 (>60 ml/min/1.73 sqM) Est GFR (CKD-EPI)NonAf >90 (>60 ml/min/1.73 sqM) Glucose 97 (74-99) mg/dL Calcium 9.5 (8.4-10.2) mg/dL Total Bilirubin 0.4 (0.2-1.3) mg/dL AST 33 (14-36) U/L ALT 49 H (4-34) U/L Alkaline Phosphatase 92 (38-126) U/L Total Protein 7.4 (6.3-8.2) g/dL Albumin 4.0 (3.5-5.0) g/dL Urine Color Urine Appearance (Clear) Urine pH (5.0-8.0) Ur Specific [place] (1.001-1.035) Urine Protein (Negative) Urine Glucose (UA) (Negative) Urine Ketones (Negative) Urine Blood (Negative) Urine Nitrite (Negative) Urine Bilirubin (Negative) Urine Urobilinogen (<2.0) mg/dL Ur Leukocyte Esterase (Negative) Urine RBC (0-5) /hpf Urine WBC (0-5) /hpf Ur Squamous Epith Cells (0-4) /hpf Urine Mucus (None) /hpf Urine HCG, Qual Not Detected (Not Detectd) Coronavirus (PCR) (Not Detectd) Disposition Clinical Impression: Lightheaded, Fatigue Disposition: HOME SELF-CARE Condition: Good Instructions (If sedation given, give patient instructions): Fatigue (ED), Lightheadedness (ED) Is patient prescribed a controlled substance at d/c from ED?: No Referrals: Sera Jim MD [Primary Care Provider] - 1-2 days Time of Disposition: 10:44
[2021-08-03 09:00] VITALS: BP 119/84
[2021-08-03 09:25] LABS: Basophils % (A) 1 %; Eosinophils # (A) 0.1 k/uL (0-0.7); Eosinophils % (A) 2 %; HCT 36.6 % (34.0-46.0); HGB 12.1 gm/dL (11.4-16.0); Lymphocytes # (A) 1.9 k/uL (1.0-4.8); Lymphocytes % (A) 60 %; Mean Platelet Volume 6.9; Monocytes # (A) 0.2 k/uL (0-1.0); Monocytes % (A) 5 %; Neutrophils % (A) 32 %; Platelet Count 394 k/uL (150-450); RBC 4.02 m/uL (3.80-5.40); RDW 13.5 % (11.5-15.5); WBC 3.2 k/uL (3.8-10.6)
[2021-08-03 09:29] LABS: Appearance,Urine Cloudy (Clear); Bilirubin,Urine Negative (Negative); Blood,Urine Moderate (Negative); Color,Urine Yellow; Glucose,Urine (UA) Negative (Negative); Ketones,Urine Negative (Negative); Leukocyte Esterase,Urine Moderate (Negative); Mucus,Urine Many /hpf; Nitrite,Urine Negative (Negative); PH, Urine 5.5 (5.0-8.0); Protein,Urine Trace (Negative); RBC,Urine 2 /hpf (0-5); Specific Gravity,Urine 1.031 (1.001-1.035); Squamous Epithelial Cell,Urine 11 /hpf (0-4); Urobilinogen,Urine <2.0 mg/dL (<2.0); WBC,Urine 14 /hpf (0-5)
[2021-08-03 09:41] LABS: ALT 49 U/L (4-34); AST 33 U/L (14-36); African American GFR (CKD) >90 (>60 ml/min/1.73 sqM); Alkaline Phosphatase 92 U/L (38-126); Anion Gap 9 mmol/L; Blood Urea Nitrogen 13 mg/dL (7-17); Calcium 9.5 mg/dL (8.4-10.2); Carbon Dioxide 23 mmol/L (22-30); Chloride 107 mmol/L (98-107); Glucose 97 mg/dL (74-99); Non-African American GFR(CKD) >90 (>60 ml/min/1.73 sqM); Potassium 4.2 mmol/L (3.5-5.1); Sodium 139 mmol/L (137-145); Total Bilirubin 0.4 mg/dL (0.2-1.3); Total Protein 7.4 g/dL (6.3-8.2)
[2021-08-03 10:01] VITALS: PULSE 65
--- NOTE | 2021-08-03 10:10 | XR ---
EXAMINATION TYPE: XR chest 2V DATE OF EXAM: 08/03/2021 COMPARISON: 09/05/2018 HISTORY: 31-year-old female surface of breath, difficulty breathing TECHNIQUE: PA and lateral views FINDINGS: The cardiomediastinal silhouette, aorta, and pulmonary vasculature are within normal limits. No conso lidation or pleural effusion seen. Small crescent of air below the right hemidiaphragm. IMPRESSION: 1. Unable to exclude trace free intraperitoneal air below the right hemidiaphragm. Correlate for any recent surgery or procedure versus signs/symptoms of an acute abdomen. 2. No acute cardiopulmonary process.
== END 2021-08-03 10:51 | disposition home or self-care (01) ==
LOC: EC 08:16
DX: R42 Dizziness and giddiness (principal); R53.83 Other fatigue; R06.02 Shortness of breath; J45.909 Unspecified asthma, uncomplicated; Z87.891 Personal history of nicotine dependence; Z88.0 Allergy status to penicillin; Z20.822 Contact with and (suspected) exposure to COVID-19; Z86.16 Personal history of COVID-19; Z91.011 Allergy to milk products
CPT/HCPCS: 36415; 71046; 80053; 81001; 81025; 85025; 87086; 87635; 93005; 96360; 99285

== ENCOUNTER 2021-09-20 02:17 | Emergency (ER) | payer OTHER ==
[2021-09-20] MEDS ORDERED: IBUPROFEN 400 MG TAB PO STA (03:18)
[2021-09-20] MEDS ORDERED: ACETAMINOPHEN TAB 325 MG TAB PO STA (03:18)
[2021-09-20] MEDS ORDERED: SODIUM CHLORIDE 0.9% 500 ML 500 ML IV STA (03:40)
--- NOTE | 2021-09-20 03:46 | XR ---
EXAMINATION TYPE: XR chest 2V DATE OF EXAM: 09/20/2021 COMPARISON: 08/03/2021 HISTORY: Cough TECHNIQUE: 2 views FINDINGS: Heart and mediastinum are normal. Lungs are clear. Diaphragm is normal. Bony thorax is inta ct. IMPRESSION: Normal chest. No change.
[2021-09-20 04:20] LABS: Basophils % (A) 1 %; Eosinophils # (A) 0.1 k/uL (0-0.7); Eosinophils % (A) 2 %; HCT 35.3 % (34.0-46.0); HGB 11.9 gm/dL (11.4-16.0); Lymphocytes # (A) 0.9 k/uL (1.0-4.8); Lymphocytes % (A) 17 %; MCH 30.5 pg (25.0-35.0); MCHC 33.7 g/dL (31.0-37.0); MCV 90.5 fL (80.0-100.0); Mean Platelet Volume 7.3; Monocytes # (A) 0.2 k/uL (0-1.0); Monocytes % (A) 5 %; Neutrophils # (A) 3.6 k/uL (1.3-7.7); Neutrophils % (A) 73 %; Platelet Count 256 k/uL (150-450); RDW 13.1 % (11.5-15.5); WBC 4.9 k/uL (3.8-10.6)
[2021-09-20 04:38] LABS: ALT 21 U/L (4-34); AST 33 U/L (14-36); African American GFR (CKD) >90 (>60 ml/min/1.73 sqM); Alkaline Phosphatase 101 U/L (38-126); Anion Gap 16 mmol/L; Blood Urea Nitrogen 8 mg/dL (7-17); Calcium 8.8 mg/dL (8.4-10.2); Carbon Dioxide 20 mmol/L (22-30); Chloride 106 mmol/L (98-107); Glucose 107 mg/dL (74-99); Non-African American GFR(CKD) >90 (>60 ml/min/1.73 sqM); Potassium 3.9 mmol/L (3.5-5.1); Sodium 142 mmol/L (137-145); Total Bilirubin 0.1 mg/dL (0.2-1.3); Total Protein 7.4 g/dL (6.3-8.2)
--- NOTE | 2021-09-20 05:43 | ED ---
SOB HPI - General Chief Complaint: Shortness of Breath Stated Complaint: COVID+, SOB Time Seen by Provider: 09/20/21 03:17 Source: patient Mode of arrival: ambulatory Limitations: no limitations - History of Present Illness Initial Comments: Patient is a 31-year-old woman who did test positive for covid-19 are seen yesterday. She states she is feeling a little bit worse today, having cough and some shortness of breath. MD Complaint: shortness of breath, cough Onset/Timin -: days(s) Severity scale (1-10): 0 Consistency: constant Improves With: nothing Worsens With: nothing Context: recent URI Associated Symptoms: denies other symptoms - Related Data Home Medications Medication Instructions Recorded Confirmed +Low Iron 27mg-1mg 1 tab PO W/SUPPER 08/06/20 08/03/21 Budesonide/Formoterol Fumarate 2 puff INHALATION RT-BID PRN 11/24/20 08/03/21 [Symbicort 160-4.5 Mcg Inhaler] Acetaminophen [Tylenol] 1,500 mg PO Q8H PRN 08/03/21 08/03/21 Albuterol Inhaler [Ventolin Hfa 2 puff INHALATION RT-QID PRN 08/03/21 08/03/21 Inhaler] Previous Rx's Medication Instructions Recorded HYDROcodone/APAP 5-325MG [[place] 1 tab PO Q4HR PRN #30 tab 08/01/21 5-325] Ibuprofen [Motrin] 600 mg PO Q6HR PRN #30 tab 08/01/21 Allergies Allergy/AdvReac Type Severity Reaction Status Date / Time Penicillins Allergy Unknown Verified 09/20/21 02:26 Childhood lactose AdvReac Nausea & Verified 09/20/21 02:26 Vomiting Review of Systems ROS Statement: Those systems with pertinent positive or pertinent negative responses have been documented in the HPI. ROS Other: All systems not noted in ROS Statement are negative. Constitutional: Reports: fever, chills ENT: Reports: congestion Respiratory: Reports: cough, dyspnea. Denies: hemoptysis Cardiovascular: Denies: chest pain, palpitations, orthopnea, edema, syncope Gastrointestinal: Reports: diarrhea. Denies: abdominal pain, nausea, vomiting Genitourinary: Denies: dysuria, hematuria Skin: Denies: rash Neurological: Denies: headache, weakness, numbness Past Medical History Past Medical History: Asthma, GERD/Reflux, Mitral Valve Prolapse (MVP), Pulmonary Embolus (PE) Additional Past Medical History / Comment(s): BLADDER INFECTIONS, PANCREATITIS, lung nodules and blood clot in lungs, liver mass, heart murmur, bronchitis history, IBS, CELIAC DISEASE, covid 11/01/20, LEAKY- MITRAL VALVE HISTORY History of Any Multi-Drug Resistant Organisms: None Reported Past Surgical History: Appendectomy, Cholecystectomy, Hernia Repair, Tubal Ligation Additional Past Surgical History / Comment(s): RT CALF MUCSLE REPAIRED AFTER LACERATION INURY, Past Anesthesia/Blood Transfusion Reactions: Previous Problems w/ Anesthesia, Family History of Problems w/ Anesthesia, Postoperative Nausea & Vomiting (PONV) Additional Past Anesthesia/Blood Transfusion Reaction / Comment(s): FAMILY HISTORY OF NAUSEA AND VOMITING Past Psychological History: Anxiety Smoking Status: Former smoker Past Alcohol Use History: None Reported Past Drug Use History: None Reported - Past Family History Father Family Medical History: COPD Additional Family Medical History / Comment(s): , GASTROINTESTINAL PROBLEMS Mother Family Medical History: Thyroid Disorder Additional Family Medical History / Comment(s): MURMUR, sarcoidosis, General Exam Limitations: no limitations General appearance: alert, in no apparent distress Head exam: Present: atraumatic, normocephalic Eye exam: Present: normal appearance. Absent: scleral icterus, conjunctival injection Neck exam: Present: normal inspection Respiratory exam: Present: normal lung sounds bilaterally. Absent: respiratory distress, wheezes, rales, rhonchi, stridor Cardiovascular Exam: Present: regular rate, normal rhythm, normal heart sounds. Absent: systolic murmur, diastolic murmur, rubs, gallop GI/Abdominal exam: Present: soft. Absent: distended, tenderness, guarding, rebound, rigid, mass Extremities exam: Present: normal inspection, normal capillary refill. Absent: pedal edema, calf tenderness Back exam: Present: normal inspection. Absent: CVA tenderness (R), CVA tenderness (L) Skin exam: Present: warm, dry, intact, normal color. Absent: rash Course Vital Signs 09/20/21 09/20/21 09/20/21 02:21 03:35 05:00 Temperature 102.2 F H Pulse Rate 108 H 107 H 85 Respiratory 24 18 16 Rate Blood Pressure 119/75 129/76 116/66 O2 Sat by Pulse 100 99 99 Oximetry 09/20/21 06:40 Temperature 98.9 F Pulse Rate 87 Respiratory 18 Rate Blood Pressure 122/77 O2 Sat by Pulse 99 Oximetry Medical Decision Making - Lab Data Result diagrams: 09/20/21 04:00 09/20/21 04:00 Lab Results 09/20/21 09/20/21 09/20/21 Range/Units 04:00 04:00 04:00 WBC 4.9 (3.8-10.6) k/uL RBC 3.90 (3.80-5.40) m/uL Hgb 11.9 (11.4-16.0) gm/dL Hct 35.3 (34.0-46.0) % MCV 90.5 (80.0-100.0) fL MCH 30.5 (25.0-35.0) pg MCHC 33.7 (31.0-37.0) g/dL RDW 13.1 (11.5-15.5) % Plt Count 256 (150-450) k/uL MPV 7.3 Neutrophils % 73 % Lymphocytes % 17 % Monocytes % 5 % Eosinophils % 2 % Basophils % 1 % Neutrophils # 3.6 (1.3-7.7) k/uL Lymphocytes # 0.9 L (1.0-4.8) k/uL Monocytes # 0.2 (0-1.0) k/uL Eosinophils # 0.1 (0-0.7) k/uL Basophils # 0.0 (0-0.2) k/uL D-Dimer 1.91 H (<0.60) mg/L FEU Sodium 142 (137-145) mmol/L Potassium 3.9 (3.5-5.1) mmol/L Chloride 106 (98-107) mmol/L Carbon Dioxide 20 L (22-30) mmol/L Anion Gap 16 mmol/L BUN 8 (7-17) mg/dL Creatinine 0.53 (0.52-1.04) mg/dL Est GFR (CKD-EPI)AfAm >90 (>60 ml/min/1.73 sqM) Est GFR (CKD-EPI)NonAf >90 (>60 ml/min/1.73 sqM) Glucose 107 H (74-99) mg/dL Calcium 8.8 (8.4-10.2) mg/dL Total Bilirubin 0.1 L (0.2-1.3) mg/dL AST 33 (14-36) U/L ALT 21 (4-34) U/L Alkaline Phosphatase 101 (38-126) U/L Total Protein 7.4 (6.3-8.2) g/dL Albumin 4.0 (3.5-5.0) g/dL Disposition Clinical Impression: COVID-19 Disposition: HOME SELF-CARE Condition: Good Instructions (If sedation given, give patient instructions): Coronavirus Disease 2019 (COVID-19) Is patient prescribed a controlled substance at d/c from ED?: No Referrals: Sera Jim MD [Primary Care Provider] - 1-2 days
--- NOTE | 2021-09-20 05:47 | CT ---
EXAMINATION TYPE: CT chest angio for PE DATE OF EXAM: 09/20/2021 COMPARISON: 08/06/2020 HISTORY: covid+. elevated d-dimer. has had a PE in the past CT DLP: 271 mGycm Automated exposure control for dose reduction was used. CONTRAST: Performed with IV Contrast, patient injected with 80ml mL of Isovue 370. There are 3-D post processed images. The lungs are clear of infiltrate. There is no pleural effusion. There is no pericardial effusion. Th ere is no mediastinal adenopathy. There are no hilar masses. There is normal contrast opacification of the pulmonary arteries. There are no filling defects. Thora cic aorta is intact. There is no aneurysm or dissection. IMPRESSION: Negative exam. No evidence of pulmonary embolism.
[2021-09-20 06:44] VITALS: BP 122/77; PULSE 87; RESP 18; TEMP 98.9
== END 2021-09-20 06:44 | disposition home or self-care (01) ==
LOC: EC 02:17
DX: U07.1 COVID-19 (principal); J45.909 Unspecified asthma, uncomplicated; Z87.891 Personal history of nicotine dependence; Z86.711 Personal history of pulmonary embolism; Z88.0 Allergy status to penicillin; Z88.8 Allergy status to other drugs, medicaments and biological substances
CPT/HCPCS: 36415; 85379; 80053; 85025; 71046; 71275; 99285; Q9967

== ENCOUNTER 2022-05-02 09:25 | Emergency (ER) | payer OTHER ==
[2022-05-02 09:51] VITALS: RESP 18; TEMP 98.1
--- NOTE | 2022-05-02 10:48 | ED ---
General Adult HPI - General Chief complaint: OB/Uterine Contractions Stated complaint: Preg/tubes tied/abd pain Time Seen by Provider: 05/02/22 10:09 Source: patient Mode of arrival: ambulatory Limitations: no limitations - History of Present Illness Initial comments: The patient is a pleasant 32-year-old -[place] female presents to the emergency room with complaints of uterine like cramping to her left adnexal region which she has had previously. She was concerned as she is currently approximately 11 weeks despite a previous tubal ligation. She was seen in the emergency room at [facility] in March where she had a vaginal ultrasound confirming with heart tones and a quantitative beta level of 43,698. There was some mild uterine bleeding but no evidence of risk to fetus at that time. She is a ; in addition to be in a geriatric she is high risk as she has a history of DVT/PE and Rh- complications with her last requiring early emergency . She having significant difficulty establishing with INJECTION MOULDING MACHINE OPERATOR her previous INJECTION MOULDING MACHINE OPERATOR was Dr. De La Garza who is no longer practicing in the area and requires a referral for high risk. She is taking vitamins. She denies any vaginal bleeding or diffuse uterine cramping. She denies any dysuria, urinary frequency, hematuria flank pain abdominal pain nausea or vomiting. She also has a past medical history significant for asthma and denies any recent asthma flares. - Related Data Previous Rx's Medication Instructions Recorded Cephalexin [Keflex] 500 mg PO Q12HR 7 Days #14 cap 05/02/22 Enoxaparin [Lovenox] 80 mg SQ Q12H 30 Days #60 each 05/02/22 Qgy-Ztqs-Ygrjx Acid 1 cap PO DAILY 30 Days #30 cap 05/02/22 [-U Capsule (formulary)] Allergies Allergy/AdvReac Type Severity Reaction Status Date / Time Penicillins Allergy Unknown Verified 05/02/22 10:50 Childhood lactose AdvReac Nausea & Verified 05/02/22 10:50 Vomiting Review of Systems ROS Statement: Those systems with pertinent positive or pertinent negative responses have been documented in the HPI. ROS Other: All systems not noted in ROS Statement are negative. Past Medical History Past Medical History: Asthma, GERD/Reflux, Mitral Valve Prolapse (MVP), Pulmonar y Embolus (PE) Additional Past Medical History / Comment(s): BLADDER INFECTIONS, PANCREATITIS, lung nodules and blood clot in lungs, liver mass, heart murmur, bronchitis hist ory, IBS, CELIAC DISEASE, covid 11/01/20, LEAKY- MITRAL VALVE HISTORY History of Any Multi-Drug Resistant Organisms: None Reported Past Surgical History: Appendectomy, Cholecystectomy, Hernia Repair, Tubal Ligation Additional Past Surgical History / Comment(s): RT CALF MUCSLE REPAIRED AFTER LACERATION INURY, Past Anesthesia/Blood Transfusion Reactions: Previous Problems w/ Anesthesia, Family History of Problems w/ Anesthesia, Postoperative Nausea & Vomiting (PONV) Additional Past Anesthesia/Blood Transfusion Reaction / Comment(s): FAMILY HISTORY OF NAUSEA AND VOMITING Past Psychological History: Anxiety Smoking Status: Former smoker Past Alcohol Use History: None Reported Past Drug Use History: None Reported - Past Family History Father Family Medical History: COPD Additional Family Medical History / Comment(s): , GASTROINTESTINAL PROBLEMS Mother Family Medical History: Thyroid Disorder Additional Family Medical History / Comment(s): MURMUR, sarcoidosis, General Exam Limitations: no limitations Head exam: Present: atraumatic, normocephalic, normal inspection Eye exam: Present: normal appearance, PERRL, EOMI. Absent: scleral icterus, conjunctival injection, periorbital swelling ENT exam: Present: normal exam, mucous membranes moist Respiratory exam: Present: accessory muscle use. Absent: respiratory distress GI/Abdominal exam: Present: soft, normal bowel sounds. Absent: distended, tenderness, guarding, rebound, rigid Extremities exam: Absent: pedal edema, joint swelling Neurological exam: Present: alert, oriented X3, CN II-XII intact Psychiatric exam: Present: normal affect, normal mood Skin exam: Present: warm, dry, intact, normal color. Absent: rash Course Vital Signs 05/02/22 05/02/22 05/02/22 09:43 12:20 14:21 Temperature 98.1 F Pulse Rate 83 60 63 Respiratory 18 18 18 Rate Blood Pressure 123/75 127/85 126/80 O2 Sat by Pulse 99 100 100 Oximetry - Reevaluation(s) Reevaluation #1: Urinalysis consistent with urinary tract infection. Beta quantitative levels without significant upward trend. Will check a transvaginal ultrasound to evaluate for possible demise due to lack of oral B availability to her. She reports that she has not been on heparin injections with this yet as she has not established with OB given previous DVT and PE history will check CBC, BMP and d-dimer. Time: 12:15 Reevaluation #2: Patient admits to no heparin during her and in decrease in activity tolerance over the last few weeks. Elevated d-dimer noted. Will check CTA for PE. Time: 13:31 Reevaluation #3: Computed tomography scan negative for pulmonary emboli elevated d-dimer noted. Will start on Lovenox treatment on discharged for PE DVT treatment to be continued by INJECTION MOULDING MACHINE OPERATOR once established. Medical Decision Making - Medical Decision Making Ultrasound and lab values family care on visit reviewed on patient Maribel from her phone. No indication for repeat vaginal ultrasound at this time. Will check qualitative beta levels along with urinalysis pending results; if beta levels consistent with current ECT of 10/12/2022 20 Will repeat transvaginal OB ultras ound. - Lab Data Result diagrams: 05/02/22 12:15 05/02/22 12:15 Lab Results 05/02/22 05/02/22 05/02/22 Range/Units 10:30 10:30 12:15 WBC 5.1 (3.8-10.6) k/uL RBC 3.41 L (3.80-5.40) m/uL Hgb 10.5 L (11.4-16.0) gm/dL Hct 31.3 L (34.0-46.0) % MCV 91.8 (80.0-100.0) fL MCH 30.7 (25.0-35.0) pg MCHC 33.5 (31.0-37.0) g/dL RDW 14.4 (11.5-15.5) % Plt Count 341 (150-450) k/uL MPV 6.9 D-Dimer (<0.60) mg/L FEU Sodium (137-145) mmol/L Potassium (3.5-5.1) mmol/L Chloride (98-107) mmol/L Carbon Dioxide (22-30) mmol/L Anion Gap mmol/L BUN (7-17) mg/dL Creatinine (0.52-1.04) mg/dL Est GFR (CKD-EPI)AfAm (>60 ml/min/1.73 sqM) Est GFR (CKD-EPI)NonAf (>60 ml/min/1.73 sqM) Glucose (74-99) mg/dL Calcium (8.4-10.2) mg/dL HCG, Quant 50261.4 mIU/mL Urine Color Yellow Urine Appearance Cloudy H (Clear) Urine pH 6.5 (5.0-8.0) Ur Specific [place] 1.024 (1.001-1.035) Urine Protein 1+ H (Negative) Urine Glucose (UA) Negative (Negative) Urine Ketones Negative (Negative) Urine Blood Negative (Negative) Urine Nitrite Negative (Negative) Urine Bilirubin Negative (Negative) Urine Urobilinogen <2.0 (<2.0) mg/dL Ur Leukocyte Esterase Large H (Negative) Urine RBC <1 (0-5) /hpf Urine WBC 3 (0-5) /hpf Ur Squamous Epith Cells 20 H (0-4) /hpf Urine Bacteria Occasional H (None) /hpf Urine Mucus Many H (None) /hpf 05/02/22 05/02/22 Range/Units 12:15 12:15 WBC (3.8-10.6) k/uL RBC (3.80-5.40) m/uL Hgb (11.4-16.0) gm/dL Hct (34.0-46.0) % MCV (80.0-100.0) fL MCH (25.0-35.0) pg MCHC (31.0-37.0) g/dL RDW (11.5-15.5) % Plt Count (150-450) k/uL MPV D-Dimer 3.03 H (<0.60) mg/L FEU Sodium 136 L (137-145) mmol/L Potassium 3.9 (3.5-5.1) mmol/L Chloride 107 (98-107) mmol/L Carbon Dioxide 20 L (22-30) mmol/L Anion Gap 9 mmol/L BUN 5 L (7-17) mg/dL Creatinine 0.46 L (0.52-1.04) mg/dL Est GFR (CKD-EPI)AfAm >90 (>60 ml/min/1.73 sqM) Est GFR (CKD-EPI)NonAf >90 (>60 ml/min/1.73 sqM) Glucose 79 (74-99) mg/dL Calcium 8.6 (8.4-10.2) mg/dL HCG, Quant mIU/mL Urine Color Urine Appearance (Clear) Urine pH (5.0-8.0) Ur Specific [place] (1.001-1.035) Urine Protein (Negative) Urine Glucose (UA) (Negative) Urine Ketones (Negative) Urine Blood (Negative) Urine Nitrite (Negative) Urine Bilirubin (Negative) Urine Urobilinogen (<2.0) mg/dL Ur Leukocyte Esterase (Negative) Urine RBC (0-5) /hpf Urine WBC (0-5) /hpf Ur Squamous Epith Cells (0-4) /hpf Urine Bacteria (None) /hpf Urine Mucus (None) /hpf Disposition Clinical Impression: UTI (urinary tract infection) Disposition: HOME SELF-CARE Condition: Good Instructions (If sedation given, give patient instructions): Pulmonary Embolism (ED), Urinary Tract Infection in Women (ED) Additional Instructions: Please start Lovenox treatment as soon as possible due to history of PE with previous pregnancies. Continue vitamins prescription provided. Complete urinary tract infection medication as prescribed. Please establish with highway engineering technician/GYN referral information placed on discharge instructions. lease return to the Emergency Department if symptoms worsen or any other concerns. Prescriptions: Cephalexin [Keflex] 500 mg PO Q12HR 7 Days #14 cap Enoxaparin [Lovenox] 80 mg SQ Q12H 30 Days #60 each [id number]-[id number] Acid [-U Capsule (formulary)] 1 cap PO DAILY 30 Days #30 cap Is patient prescribed a controlled substance at d/c from ED?: No Referrals: Sera Jim MD [Primary Care Provider] - 1-2 days Brando Peguero DO [REFERRING] - 1-2 days Time of Disposition: 15:52
[2022-05-02 10:51] LABS: Appearance,Urine Cloudy (Clear); Bacteria,Urine Occasional /hpf; Bilirubin,Urine Negative (Negative); Blood,Urine Negative (Negative); Color,Urine Yellow; Glucose,Urine (UA) Negative (Negative); Ketones,Urine Negative (Negative); Leukocyte Esterase,Urine Large (Negative); Mucus,Urine Many /hpf; Nitrite,Urine Negative (Negative); PH, Urine 6.5 (5.0-8.0); Protein,Urine 1+ (Negative); RBC,Urine <1 /hpf (0-5); Specific Gravity,Urine 1.024 (1.001-1.035); Squamous Epithelial Cell,Urine 20 /hpf (0-4); Urobilinogen,Urine <2.0 mg/dL (<2.0); WBC,Urine 3 /hpf (0-5)
[2022-05-02 12:42] LABS: HCT 31.3 % (34.0-46.0); HGB 10.5 gm/dL (11.4-16.0); MCH 30.7 pg (25.0-35.0); MCHC 33.5 g/dL (31.0-37.0); MCV 91.8 fL (80.0-100.0); Mean Platelet Volume 6.9; Platelet Count 341 k/uL (150-450); RBC 3.41 m/uL (3.80-5.40); RDW 14.4 % (11.5-15.5); WBC 5.1 k/uL (3.8-10.6)
[2022-05-02 12:59] LABS: African American GFR (CKD) >90 (>60 ml/min/1.73 sqM); Anion Gap 9 mmol/L; Blood Urea Nitrogen 5 mg/dL (7-17); Calcium 8.6 mg/dL (8.4-10.2); Carbon Dioxide 20 mmol/L (22-30); Chloride 107 mmol/L (98-107); Glucose 79 mg/dL (74-99); Non-African American GFR(CKD) >90 (>60 ml/min/1.73 sqM); Potassium 3.9 mmol/L (3.5-5.1); Sodium 136 mmol/L (137-145)
[2022-05-02 14:21] VITALS: BP 126/80; PULSE 63
--- NOTE | 2022-05-02 14:40 | US ---
EXAMINATION TYPE: Transabdominal DATE OF EXAM: 05/02/2022 2:08 PM COMPARISON: 11/23/2020 CLINICAL HISTORY: low hcg trend. Abd pain, low hcg levels, unexpected due to prior tubal li gation EXAM PERFORMED: Transabdominal (TA) EXAM MEASUREMENTS: GESTATIONAL AGE / DATING Physician Established: Not yet established Dates by LMP: 01/10/2022 16w 0d EDC: 10/17/2022 Dates by First Scan: Previous performed at outside facility patient states she should be around 19 w ks EDC: 09/22/2022 Dates by Current Scan for: (13weeks/2 days) EDC: 11/05/2022 MATERNAL ANATOMY Uterus: 14.0 x 1.3 x 11.1 cm Right Ovary: 3.1 x 1.6 x 2.2cm Left Ovary: 6.2 x 3.2 x 4.7cm Post CDS / Adnexa: wnl Presence of free fluid: trace Presence of corpus luteal cyst: yes, vanessa. 3.4 x 3.4 x 3.8cm Presence of subchorionic bleed: no GESTATION / SURVEY CRL: (13weeks/2 days) Yolk Sac (normal less than 6mm): 5mm Heart Rate: 155pm Rhythm: Normal IUP: Viable IUP Date of LMP: 01/10/2022 Beta HcG (if available): 45,153 IMPRESSION: Viable 13 weeks 2 days with a heart rate of 155 bpm.
--- NOTE | 2022-05-02 14:58 | CT ---
EXAMINATION TYPE: CT chest angio for PE DATE OF EXAM: 05/02/2022 COMPARISON: CT dated 09/20/2021 HISTORY: elevated d-dimer, hx of PE CT DLP: 253.1 mGy.cm. Automated Exposure Control for Dose Reduction was Utilized. TECHNIQUE AND CONTRAST: CTA scan of the thorax is performed with IV Contrast, patient injected with 71cc mL of Isovue 370, pu lmonary embolism protocol. MIP Images are created on an independent workstation and reviewed. FINDINGS: Artifactual images. No definite filling defect within the pulmonary trunk, main pulmonary arteries, l obar and segmental branches to suggest pulmonary embolism. Subsegmental branches are suboptimally ass essed. No cardiomegaly. Unremarkable lungs. Patent trachea and bronchi. No pleural or pericardial effusion. No pathologically enlarged lymph nodes in the chest. Previous cholecystectomy. Surgical clips at the gastroesophageal junction. No aggressive bone lesion. IMPRESSION: Within limitation of the artifactual images, no major or central pulmonary embolism. No definite acut e pulmonary abnormality identified.
== END 2022-05-02 16:26 | disposition home or self-care (01) ==
LOC: EC 09:25
DX: O23.41 Unspecified infection of urinary tract in pregnancy, first trimester (principal); J45.909 Unspecified asthma, uncomplicated; Z79.83 Long term (current) use of bisphosphonates; K21.9 Gastro-esophageal reflux disease without esophagitis; Z87.891 Personal history of nicotine dependence; Z88.0 Allergy status to penicillin; Z91.011 Allergy to milk products; Z3A.13 13 weeks gestation of pregnancy
CPT/HCPCS: 99284; 36415; 85379; 80048; 85027; 81001; 84702; 76801; 71275; Q9967

== ENCOUNTER 2022-10-18 06:00 | Inpatient (IN) | payer OTHER ==
[2022-10-18] MEDS ORDERED: LIDOCAINE 0.5% (PF) 5 MG/ML (50 ML SDV) SQ PRN (06:44)
[2022-10-18] MEDS ORDERED: TERBUTALINE 1 MG/ML VIAL SQ PRN (06:44)
[2022-10-18] MEDS ORDERED: CLINDAMYCIN 900 MG in DEXTROSE 5% IN WATER 50 ML IVPB STA ×2 (06:44)
[2022-10-18] MEDS ORDERED: OXYTOCIN 30 UNITS/500 ML NS 30 UNIT in SALINE 1 500ML.BAG IV SCH ×2 (06:45→15:30)
[2022-10-18] MEDS: LACTATED RINGERS 1,000 ML IV SCH ×2 (06:55→14:48)
[2022-10-18 07:25] LABS: Basophils % (A) 0 %; Eosinophils % (A) 1 %; HCT 33.2 % (34.0-46.0); HGB 11.2 gm/dL (11.4-16.0); Lymphocytes # (A) 1.9 k/uL (1.0-4.8); Lymphocytes % (A) 42 %; MCH 30.6 pg (25.0-35.0); MCHC 33.9 g/dL (31.0-37.0); MCV 90.4 fL (80.0-100.0); Mean Platelet Volume 7.8; Monocytes # (A) 0.2 k/uL (0-1.0); Monocytes % (A) 5 %; Neutrophils # (A) 2.2 k/uL (1.3-7.7); Neutrophils % (A) 49 %; Platelet Count 328 k/uL (150-450); RBC 3.67 m/uL (3.80-5.40); RDW 14.2 % (11.5-15.5); WBC 4.5 k/uL (3.8-10.6)
[2022-10-18] MEDS ORDERED: BUTORPHANOL 1 MG/ML 1 ML VIAL IV PRN (08:46)
--- NOTE | 2022-10-18 08:53 | P.HPOB ---
History of Present Illness H&P Date: 10/18/22 Chief Complaint: 37-3/7 weeks, induction, Rh isoimmunization the patient is a 32-year-old 5 para 01/11/2004 admitted at 37-3/7 weeks as established by early ultrasound. She is admitted for induction of labor secondary to a history of Rh isoimmunization for which she has been co-managed with maternal medicine at [facility]. She has had weekly an tenatal testing which has been reassuring throughout as well as ST ratios which remained within normal limits. She additionally is known to have a circumvallate placenta. She also is following tubal ligation after last . Group B strep status is positive. On labor and delivery, all signs reassuring with a category 1 heart rate tracing. Obstetrical history: 5 para 01/11/2004 with statistics listed above. She has known Rh isoimmunization and has been followed with maternal medicine very closely and has had testing which is been reass uring throughout the third trimester. All of her deliveries have been vaginal in nature. Her one delivery was at 36 weeks by induction secondary to the RH isoimmunization. Laboratory workup demonstrates a blood type of B+ with a positive antibody screen. Rubella status is immune. The remainder of laboratory workup was within normal limits. One hour Glucola was within normal limits. Group B strep status is positive. Gynecologic history: Unremarkable with no history of any infections to include STDs. Review of Systems review of systems is confined to history of present illness. Past Medical History Past Medical History: Asthma, GERD/Reflux, Mitral Valve Prolapse (MVP), Pulmonary Embolus (PE) Additional Past Medical History / Comment(s): BLADDER INFECTIONS, PANCREATITIS, lung nodules and blood clot in lungs, liver mass, heart murmur, bronchitis history, IBS, CELIAC DISEASE, LEAKY- MITRAL VALVE HISTORY History of Any Multi-Drug Resistant Organisms: None Reported Past Surgical History: Appendectomy, Cholecystectomy, Hernia Repair, Tubal Ligation Additional Past Surgical History / Comment(s): RT CALF MUSCLE REPAIRED AFTER LACERATION INURY, Past Anesthesia/Blood Transfusion Reactions: Previous Problems w/ Anesthesia, Family History of Problems w/ Anesthesia, Postoperative Nausea & Vomiting (PONV) Additional Past Anesthesia/Blood Transfusion Reaction / Comment(s): FAMILY HISTORY OF NAUSEA AND VOMITING Past Psychological History: Anxiety Additional Psychological History / Comment(s): "long time ago" Smoking Status: Never smoker Past Alcohol Use History: None Reported Additional Past Alcohol Use History / Comment(s): STARTED SMOKING AT AGE 19 SMOKED 2-3 CIG PER DAY QUIT 2010 Past Drug Use History: None Reported - Past Family History Father Family Medical History: COPD Additional Family Medical History / Comment(s): , GASTROINTESTINAL PROBLEMS Mother Family Medical History: Thyroid Disorder Additional Family Medical History / Comment(s): MURMUR, sarcoidosis, Medications and Allergies Home Medications Medication Instructions Recorded Confirmed Type Enoxaparin [Lovenox] 80 mg SQ Q12H 30 Days #60 each 05/02/22 10/18/22 Rx Nnt-Onlz-Fdgdm Acid 1 cap PO DAILY 30 Days #30 cap 05/02/22 10/18/22 Rx [-U Capsule (formulary)] Albuterol Inhaler [Ventolin Hfa 1 - 2 puff INHALATION RT-Q12H PRN 06/20/22 10/18/22 History Inhaler] Allergies Allergy/AdvReac Type Severity Reaction Status Date / Time Penicillins Allergy Unknown Verified 10/18/22 06:42 Childhood lactose AdvReac Nausea & Verified 10/18/22 06:42 Vomiting Exam Vital Signs Temp Pulse Resp BP Pulse Ox 10/18/22 07:12 97 F L 100 16 137/70 97 Intake and Output 10/17/22 10/18/22 10/18/22 22:59 06:59 14:59 Other: Weight 81.193 kg 81.193 kg in general, this is a well-developed, well-nourished female in no acute distress. Her heart has a regular rhythm and rate without murmur. Her lungs are clear to auscultation bilaterally in all cleary. Her abdomen is gravid, nondistended, has normal active bowel sounds, soft, nontender, without any palpable masses aside from the uterine fundus. Her extremities without any cyanosis, clubbing, or edema and are nontender to palpation bilaterally. Digital cervical examination demonstrates her cervix to be 2 cm dilated, 50% effaced, the vertex in presentation at -2 station. Artificial rupture of membra vickie is carried out demonstrating clear fluid. Results Result Diagrams: 10/18/22 06:58 Abnormal Lab Results - Last 24 Hours (Table) 12/07/22 Range/Units 06:58 RBC 3.67 L (3.80-5.40) m/uL Hgb 11.2 L (11.4-16.0) gm/dL Hct 33.2 L (34.0-46.0) % Assessment and Plan (1) Group B streptococcal infection in Current Visit: Yes Status: Acute Code(s): O98.819 - OTH MATERNAL INFEC/PARASTC DISEASES COMP PREG, UNSP TRI; B95.1 - STREPTOCOCCUS, GROUP B, CAUSING DISEASES CLASSD [id number] SNOMED Code(s): 577148658 (2) Rh isoimmunization Current Visit: Yes Status: Acute Code(s): O36.0990 - MATERNAL CARE FOR OTH RHESUS ISOIMMUN, UNSP TRIMESTER, UNSP SNOMED Code(s): 986349962 (3) Term Current Visit: Yes Status: Acute Code(s): Z34.90 - ENCNTR FOR SUPRVSN OF NORMAL , UNSP, UNSP TRIMESTER SNOMED Code(s): 59182280 Plan: the patient is admitted for induction of labor. Pitocin has been started and she is undergone artificial rupture of membranes. She will have close maternal and surveillance and expectant management will be practiced. She is a good candidate for either IV, epidural, or nitrous analgesia, whichever she may choose. Antibody prophylaxis has been started for group B strep.
[2022-10-18] MEDS ORDERED: CLINDAMYCIN 900 MG in DEXTROSE 5% IN WATER 50 ML IVPB SCH ×2 (15:00)
[2022-10-18] MEDS ORDERED: ZOLPIDEM 5 MG TAB PO PRN (15:16)
[2022-10-18] MEDS ORDERED: diphenhydrAMINE 50 MG/ML 1 ML VIAL IVP PRN ×2 (15:16)
[2022-10-18] MEDS ORDERED: SIMETHICONE 80 MG CHEWABLE PO PRN (15:16)
[2022-10-18] MEDS ORDERED: LANOLIN CREAM 5 GM TUBE TOPICAL PRN (15:16)
[2022-10-18] MEDS ORDERED: diphenhydrAMINE 50 MG CAP PO PRN (15:16)
[2022-10-18] MEDS ORDERED: diphenhydrAMINE 25 MG CAP PO PRN (15:16)
[2022-10-18] MEDS ORDERED: HYDROCORTISONE 2.5% RECTAL CREAM 30 GM TUBE RECTAL PRN (15:16)
[2022-10-18] MEDS ORDERED: BENZOCAINE/MENTHOL SPRAY 1 GM/SPRAY AEROSOL TOPICAL PRN (15:16)
[2022-10-18] MEDS ORDERED: HYDROcodone/APAP 5-325MG 1 EACH TAB PO PRN (15:16)
[2022-10-18] MEDS ORDERED: HYDROcodone/APAP 7.5-325MG 1 EACH TAB PO PRN (15:16)
--- NOTE | 2022-10-18 15:22 | P.PROBDLV ---
Vaginal Delivery Note - . Vaginal Delivery Note: the patient is a 32-year-old 5 para 3104 admitted at 37-3/7 weeks by good dating parameters. She is admitted for induction of labor secondary to a known diagnosis of Rh isoimmunization and additionally had a spontaneous variable is in for which she's been treated with Lovenox during the . As regards the isoimmunization, she has had comanagement with maternal- medicine for cord Dopplers and routine testing which have been normal throughout. She additionally has a history of a tubal ligation and achieve this following that tubal ligation. Group B strep status is positive. On labor and delivery, all signs reassuring with a category 1 heart rate tracing. She had Pitocin augmentation started followed by artificial rupture of membranes for clear fluid. She progressed through the latent phase of labor and into the active phase of labor where she then had an epidural catheter placed for analgesia. She progressed very rapidly from that time to complete and pushed over the course of a single contraction to a normal spontaneous vaginal delivery of a viable 5 lbs. 8 oz. baby girl with Apgars of 8 at 1 minute and 9 at 5 minutes delivered in the left occiput transverse position. cord blood was taken though RhoGAM will not be necessary as she is already iso-immunized. the placenta was delivered spontaneously, intact, and grossly normal with a grossly normal three-vessel cord inserted approximate 2-3 cm from the margin of the placental disc. There were some areas on the side which appeared to perhaps be infarcted. There were no lacerations of the perineum, vagina, or cervix. Estimated blood loss for the case is approximately 200 mL. There were no complications. All sponge, instrument, and needle counts were correct. Both mother and infant are resting comfortably in recovery.
[2022-10-18] MEDS ORDERED: ONDANSETRON 4 MG/2 ML VIAL IVP PRN (16:16)
[2022-10-18] MEDS: ACETAMINOPHEN TAB 325 MG TAB PO PRN (16:36)
[2022-10-18] MEDS ORDERED: ONDANSETRON 4 MG TAB PO PRN (19:46)
[2022-10-18] MEDS: SENNOSIDES-DOCUSATE SODIUM 1 EACH TAB PO SCH (21:02)
[2022-10-18] MEDS: IBUPROFEN 600 MG TAB PO PRN (21:02)
[2022-10-19] MEDS: ACETAMINOPHEN TAB 325 MG TAB PO PRN ×2 (00:44→08:08)
[2022-10-19] MEDS: IBUPROFEN 600 MG TAB PO PRN (05:18)
[2022-10-19 07:06] LABS: Basophils % (A) 1 %; Eosinophils % (A) 1 %; HCT 30.3 % (34.0-46.0); Hypochromasia Marked; Lymphocytes # (A) 1.7 k/uL (1.0-4.8); Lymphocytes % (A) 29 %; MCH 30.9 pg (25.0-35.0); MCHC 32.1 g/dL (31.0-37.0); Mean Platelet Volume 7.9; Monocytes # (A) 0.4 k/uL (0-1.0); Monocytes % (A) 7 %; Neutrophils # (A) 3.6 k/uL (1.3-7.7); Neutrophils % (A) 61 %; Platelet Count 235 k/uL (150-450); RBC 3.15 m/uL (3.80-5.40); RDW 14.1 % (11.5-15.5); WBC 5.9 k/uL (3.8-10.6)
[2022-10-19 07:07] LABS: HGB 9.7 gm/dL (11.4-16.0)
[2022-10-19 07:08] LABS: MCV 96.2 fL (80.0-100.0)
[2022-10-19] MEDS: SENNOSIDES-DOCUSATE SODIUM 1 EACH TAB PO SCH (08:09)
--- NOTE | 2022-10-19 08:41 | P.DS ---
Providers Date of admission: 10/18/22 06:34 Expected date of discharge: 10/19/22 Attending physician: Alfredo Mitchell Primary care physician: Stated None - Discharge Diagnosis(es) (1) Group B streptococcal infection in Current Visit: Yes Status: Acute (2) Rh isoimmunization Current Visit: Yes Status: Acute (3) Term Current Visit: Yes Status: Acute (4) Normal spontaneous vaginal delivery Current Visit: Yes Status: Acute Hospital Course: the patient is a 32-year-old 5 para 3104 admitted at 37-3/7 weeks for induction of labor. She is being induced secondary to a known history of Rh isoimmunization with maternal medicine recommendation for delivery at 37 weeks. She has been co-managed on a regular basis throughout the with reassuring testing. She additionally has a circumvallate placenta and is group B strep positive. She also has a history of spontaneous pulmonary embolism for which she has been prophylactically anticoagulated during the . On labor and delivery, all signs reassuring with a category 1 heart rate tracing. She had Pitocin started after antibody prophylaxis have been started. She underwent artificial rupture of membranes. She made progress through to the active phase of labor which time an epidural catheter was placed for analgesia. She then progressed very rapidly to complete and pushed over the course of 1 contraction to a normal spontaneous vaginal delivery of a viable 5 lbs. 8 oz. baby girl with Apgars of 8 at 1 minute and 9 at 5 minutes. Her course was unremarkable with vital signs remaining stable and her temperature was afebrile throughout. She was deemed stable for discharge on day #1 was discharged home to follow-up in the office in 6 weeks' time routinely. This was the result of a failed tubal ligation and she will be scheduled for bilateral salpingectomy at the 6 week eliseo. Discharge instructions included calling for any significantly increased bleeding or foul- smelling lochia, significantly increased fever abdominal pain, perineal complaints, breast complaints, or anything else that concerned her. She is additionally instructed to have nothing in the vagina for at least 6 weeks time to include intercourse. She understood her instructions and agrees to follow up as noted above. Discharge medications included continued vitamins as she doesn't tend to breast-feed. She additionally will continue on Lovenox 40 mg subcutaneously daily for the first 6 weeks following delivery. She will otherwise use [id number] analgesic pain medications. Maternal blood type is B- and cord blood was sent for evaluation for blood type but RhoGAM was not necessary as the patient already has isoimmunization. rubella status is immune. Procedures: #1. Antibody prophylaxis #2. Pitocin induction #3. Artificial rupture of membranes #4. Epidural analgesia #5. Normal spontaneous vaginal delivery Patient Condition at Discharge: Stable Plan - Discharge Summary New Discharge Prescriptions: No Action Enoxaparin [Lovenox] 80 mg SQ Q12H 30 Days #60 each Jvv-Aqbo-Fszah Acid [-U Capsule (formulary)] 1 cap PO DAILY 30 Days #30 cap Albuterol Inhaler [Ventolin Hfa Inhaler] 1 - 2 puff INHALATION RT-Q12H PRN PRN Reason: Shortness Of Breath Or Wheezing Discharge Medication List Enoxaparin [Lovenox] 80 mg SQ Q12H 30 Days #60 each 05/02/22 [Rx] Stl-Xsul-Yxlnd Acid [-U Capsule (formulary)] 1 cap PO DAILY 30 Days #30 cap 05/02/22 [Rx] Albuterol Inhaler [Ventolin Hfa Inhaler] 1 - 2 puff INHALATION RT-Q12H PRN 06/20/22 [History] Follow up Appointment(s)/Referral(s): Alfredo Mitchell MD [STAFF PHYSICIAN] - 6 Weeks Discharge Disposition: HOME SELF-CARE
[2022-10-19] MEDS ORDERED: ENOXAPARIN 40 MG/0.4 ML SYRINGE SQ SCH (09:00)
[2022-10-19 17:01] VITALS: BP 124/88; PULSE 82; RESP 18; TEMP 98.5
== END 2022-10-19 18:50 | disposition home or self-care (01) | DRG 806 ==
LOC: 4FBP 06:34
PROVIDERS: ADMIT Obstetrics & Gynecology; ATTEND Obstetrics & Gynecology
PROC: 10E0XZZ Delivery of Products of Conception, External Approach (ICD-10-PCS; principal; 2022-10-18)
PROC: 10907ZC Drainage of Amniotic Fluid, Therapeutic from Products of Conception, Via Natural or Artificial Opening (ICD-10-PCS; 2022-10-18)
PROC: 3E033VJ Introduction of Other Hormone into Peripheral Vein, Percutaneous Approach (ICD-10-PCS; 2022-10-18)
PROC: 4A0HXCZ Measurement of Products of Conception, Cardiac Rate, External Approach (ICD-10-PCS; 2022-10-18)
DX: O99.824 Streptococcus B carrier state complicating childbirth (principal); O36.0930 Maternal care for other rhesus isoimmunization, third trimester, not applicable or unspecified; Z37.0 Single live birth; O98.82 Other maternal infectious and parasitic diseases complicating childbirth; F41.9 Anxiety disorder, unspecified; I34.1 Nonrheumatic mitral (valve) prolapse; J45.909 Unspecified asthma, uncomplicated; K21.9 Gastro-esophageal reflux disease without esophagitis; K58.9 Irritable bowel syndrome, unspecified; K90.0 Celiac disease; O43.113 Circumvallate placenta, third trimester; O99.344 Other mental disorders complicating childbirth; O99.52 Diseases of the respiratory system complicating childbirth; O99.62 Diseases of the digestive system complicating childbirth; Z3A.37 37 weeks gestation of pregnancy; Z86.711 Personal history of pulmonary embolism; Z87.891 Personal history of nicotine dependence; Z88.0 Allergy status to penicillin; Z91.011 Allergy to milk products; Z87.19 Personal history of other diseases of the digestive system; Z90.49 Acquired absence of other specified parts of digestive tract
CPT/HCPCS: 85025; 86850; 86870; 86880; 86900; 86901; 86902

== ENCOUNTER → 2023-03-09 | Outpatient (CLI) | payer OTHER ==
[2023-03-09 20:03] LABS: Basophils # (A) 0.04 X 10*3/uL (0.00-0.10); Eosinophils % (A) 2.4 %; HCT 37.4 % (37.2-46.3); HGB 11.9 g/dL (12.0-15.0); Immature Grans, Automated 0 %; Lymphocytes # (A) 1.88 X 10*3/uL (0.90-5.00); Lymphocytes % (A) 45.2 %; MCH 30.4 pg (27.0-32.0); MCHC 31.8 g/dL (32.0-37.0); MCV 95.7 fL (80.0-97.0); Mean Platelet Volume 9.3 fL (9.5-12.2); Monocytes # (A) 0.35 X 10*3/uL (0.20-1.00); Monocytes % (A) 8.4 %; NRBC Per 100 WBC 0 /100 WBCS (0.0-0.0); Neutrophils # (A) 1.79 X 10*3/uL (1.80-7.70); Platelet Count 378 X 10*3/uL (140-440); RBC 3.91 X 10*6/uL (4.10-5.20); RDW 13.1 % (11.5-14.5); WBC 4.16 X 10*3/uL (4.50-10.00)
== END | disposition home or self-care (01) ==
LOC: LABPAT 11:15
PROVIDERS: ATTEND Obstetrics & Gynecology
DX: Z30.2 Encounter for sterilization (principal)
CPT/HCPCS: 85025

== ENCOUNTER 2023-03-12 09:30 | Day surgery (SDC) | payer OTHER ==
[2023-03-08 11:23] VITALS: BMI 27.4
--- NOTE | 2023-03-09 07:48 | HP ---
HISTORY AND PHYSICAL SCHEDULED DATE OF SURGERY: March 12, 2023. HISTORY OF PRESENT ILLNESS: The patient is a 33-year-old 5, para 4-1-0-5, admitted for laparoscopic bilateral salpingectomy. She has known significant complications with including a history of Rh sensitization for which she has fortunately had 2 live births and normal pregnancies since the diagnosis was made. Prior to most recent and live , she additionally had undergone previous bilateral tubal ligation likely with Filshie clips. Nevertheless, she became again and there was no further childbearing. Given her history of having already failed tubal ligation once, we have opted to proceed with bilateral salpingectomy as the most aggressive approach. PAST MEDICAL HISTORY: Significant for heart murmur diagnosed after COVID. She additionally has mitral valve prolapse and history of an unprovoked pulmonary embolism which has also complicated her pregnancies. PAST SURGICAL HISTORY: She had an appendectomy, cholecystectomy, laparoscopic Ngozi fundoplication and then tubal ligation, most recently in 2020, done laparoscopically. There were apparently no issues with anesthetics. OBSTETRICAL HISTORY: 5, para 4-1-0-5 with 4 term deliveries and one 36-week vaginal delivery. Current method of contraception has been condoms as her previous tubal ligation has failed. GYNECOLOGIC HISTORY: Unremarkable with no history of any infections to include STDs. She has a remote history of Chlamydia and Gonorrhea, but nothing recent. FAMILY HISTORY: Noncontributory. 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 She is a nonsmoker, though she does have a history of smoking historically. She denies any other social concerns. CURRENT MEDICATIONS: No known medications that I am aware of at this time. ALLERGIES: Penicillin with no documented reaction. REVIEW OF SYSTEMS: Confined to history of present illness. PHYSICAL EXAMINATION: VITAL SIGNS: Stable. The patient is afebrile. GENERAL: This is a well-developed, well-nourished, pleasant female in no acute distress. HEART: Has a regular rhythm and rate without murmur. LUNGS: Clear to auscultation bilaterally in all cleary. ABDOMEN: Nondistended, has normoactive bowel sounds, soft, nontender, and without any palpable masses, hepatosplenomegaly, or hernias. EXTREMITIES: Without any cyanosis, clubbing, or edema and are nontender to palpation bilaterally. PELVIC: Demonstrates normal external genitalia and BUS with normal vaginal mucosa and cervix. There is no cervical motion tenderness. Uterus is approximately 5 weeks in size, retroverted, mobile, nontender, and normal in shape. The adnexa are normal and nontender without any apparent mass bilaterally. ASSESSMENT AND PLAN: Multiparity, significant complications with , undesired fertility: The patient has failed previous standard tubal ligation presumably with Filshie clips. As a result, we have opted to proceed with laparoscopic bilateral salpingectomy. The risks and complications of the procedure were thoroughly discussed including the risks for bleeding, bleeding requiring transfusion, infection, and injury to local structures to specifically include injury to the bowel, bladder, ureters. The patient has understood all these concerns and has agreed to proceed. MMODL / IJN: [id number] /
[~2023-03-12 09:30] MED LIST changes: +HYDROmorphone 0.5 MG/0.5 ML SYRINGE IVP PRN; -MIDAZOLAM 2 MG/2 ML VIAL IV PRN; +ONDANSETRON 4 MG/2 ML VIAL IVP ONE; -SCOPOLAMINE 1.5MG/72HR PATCH TRANSDERM ONE
[2023-03-12] MEDS ORDERED: LIDOCAINE 1% (10MG/ML) FOR IV START INTRADERMA ONE (10:10)
[2023-03-12] MEDS ORDERED: SCOPOLAMINE 1 MG/72 HR PATCH TRANSDERM ONE (10:25)
[2023-03-12 10:35] VITALS: RESP 16
[2023-03-12] MEDS ORDERED: MIDAZOLAM 2 MG/2 ML VIAL ONE (10:49)
[2023-03-12] MEDS ORDERED: LIDOCAINE 2% INJ 20 MG/ML (2 ML VIAL) ONE (10:49)
[2023-03-12] MEDS ORDERED: PROPOFOL 10 MG/ML 20 ML VIAL IV ONE (10:49)
[2023-03-12] MEDS ORDERED: NEOSTIGMINE 1 MG/ML 10 ML VIAL ONE (10:49)
[2023-03-12] MEDS ORDERED: ROCURONIUM 10 MG/ML (5 ML VIAL) IV ONE (10:49)
[2023-03-12] MEDS ORDERED: SUCCINYLCHOLINE CHLORIDE 200 MG/10 ML VIAL IV ONE (10:49)
[2023-03-12] MEDS ORDERED: KETOROLAC 15 MG/ML 1 ML VIAL ONE (10:49)
[2023-03-12] MEDS ORDERED: GLYCOPYRROLATE 0.2 MG/ML 2 ML VIAL ONE (10:49)
[2023-03-12] MEDS ORDERED: fentaNYL (PF) 50 MCG/ML 2 ML AMP ONE (10:49)
[2023-03-12] MEDS ORDERED: BUPIVACAINE (PF) 0.5% 30 ML VIAL SQ ONE ×2 (10:52)
[2023-03-12] MEDS ORDERED: IBUPROFEN 600 MG TAB PO PRN (11:39)
[2023-03-12] MEDS ORDERED: KETOROLAC 15 MG/ML 1 ML VIAL IVP PRN (11:39)
[2023-03-12] MEDS ORDERED: diphenhydrAMINE 50 MG/ML 1 ML VIAL IVP PRN (11:39)
[2023-03-12] MEDS ORDERED: SIMETHICONE 80 MG CHEWABLE PO PRN (11:39)
[2023-03-12] MEDS ORDERED: ONDANSETRON 4 MG/2 ML VIAL IVP PRN (11:39)
[2023-03-12] MEDS ORDERED: METOCLOPRAMIDE 5 MG/ML 2 ML VIAL IVP PRN (11:39)
[2023-03-12] MEDS ORDERED: Acetaminophen-Codeine 300-30mg TAB PO PRN ×2 (11:39)
[2023-03-12] MEDS ORDERED: LACTATED RINGERS 1,000 ML IV SCH (11:45)
--- NOTE | 2023-03-12 11:48 | P.OP ---
Date of Procedure: 03/12/23 Preoperative Diagnosis: #1. Multiparity #2. Failed tubal ligation #3. Undesired fertility Postoperative Diagnosis: Same Procedure(s) Performed: #1. Laparoscopic bilateral salpingectomy Anesthesia: JOSEFA Surgeon: Alfredo Mitchell Estimated Blood Loss (ml): 5 IV fluids (ml): 600 Urine output (ml): 50 Pathology: other (Bilateral fallopian tubes with Filshie clips) Condition: stable Disposition: PACU Operative Findings: pelvic examination demonstrated a roughly 4-5 week midplane mobile normal shaped uterus with normal adnexa bilaterally. Intraoperatively, the uterus and ovaries were entirely normal to inspection the fallopian tubes were normal and, on each side, there was a Filshie clip present across the distal portion of the isthmic section of fallopian tube. No obvious source for failure was noted. The remainder of the pelvis was normal to inspection. The upper abdomen was also normal to inspection. Description of Procedure: The patient was prepped and draped in usual fashion after general endotracheal anesthesia was administered by the anesthesiologist. A speculum was placed in the anterior lip of the cervix grasped with single-tooth tenaculum allowing placement of an acorn cannula for intraoperative manipulation of the uterus. The bladder was drained of approximately 50 mL of clear jose urine. Attention was turned to the abdomen where a roughly 5 mm incision was made in the vertical fold of the umbilicus lung insertion of a 5 mm optical trocar under direct visualization without difficulty. A pneumoperitoneum was infused and Trendelenburg positioning utilized. A site was selected in the left lower quadrant just below and well lateral to the optical trocar where an 8 mm incision was made in the transverse plane allowing insertion of an 8 mm optical trocar under direct visualization without difficulty. A site was selected to me or the left were quadrant site in the right lower quadrant where a 5 mm incision was made allowing insertion of a 5 mm trocar under direct visualization without difficulty. A blunt probe was utilized to explore the pelvis with the normal findings as noted above. Again, there was a Filshie clip across the distal portion of the isthmus of each fallopian tube. The probe was replaced with a grasper which was utilized to grasp the left fallopian tube at the fimbria and elevated. A LigaSure device was utilized to divide the tube from the underlying ovary and tissues to its insertion at the uterus at which time it was transected with the LigaSure device. The entire tube as well as the fallopian tube was removed through the 8 mm trocar. A similar operation was then carried out on the right side without difficulty. Again, the entire fallopian tube and Filshie clip were removed through the 8 mm trocar. Inspection of the remainder of the pelvis demonstrated no pathology to include endometriosis. The upper abdomen appeared normal as well. There was no ongoing bleeding or other concerns. The entire pneumoperitoneum was evacuated through the 3 trocar sites which were then removed. The skin was closed with interrupted subcuticular stitches of 4-0 Vicryl followed by half-inch Steri-Strips placed with Mastisol. The acorn cannula and tenaculum were removed. Estimated blood loss for the case was less than 5 mL. There were no complications. All sponge, instrument, needle counts were correct. The patient tolerated the procedure well and proceeded to the recovery room in stable condition.
[2023-03-12 11:51] VITALS: TEMP 97
[2023-03-12 14:12] VITALS: BP 123/80; PULSE 90
[2023-03-12] MEDS ORDERED: METOCLOPRAMIDE 5 MG/ML 2 ML VIAL IVP ONE (14:17)
[2023-03-13] MEDS ORDERED: ACETAMINOPHEN TAB 325 MG TAB PO PRN (11:40)
== END 2023-03-12 15:00 | disposition home or self-care (01) ==
LOC: OR 09:30
PROVIDERS: ATTEND Obstetrics & Gynecology
DX: Z30.2 Encounter for sterilization (principal); Z98.51 Tubal ligation status; I34.1 Nonrheumatic mitral (valve) prolapse; J45.909 Unspecified asthma, uncomplicated; Z79.51 Long term (current) use of inhaled steroids; Z86.711 Personal history of pulmonary embolism; Z86.16 Personal history of COVID-19; Z87.891 Personal history of nicotine dependence; Z88.0 Allergy status to penicillin; K21.9 Gastro-esophageal reflux disease without esophagitis
CPT/HCPCS: 58661; 81025; J2250; J0330; J1100; J2710; J2765; J2405; J3010; J1885; J2704; J2001; 88302